=== PATIENT | female | born 1960 | race Caucasian/White ===

== ENCOUNTER 2018-05-23 23:26 | Emergency (ER) | payer BC, SELFPAY ==
[2018-05-23 23:31] VITALS: BP 159/120; PULSE 74; RESP 20; TEMP 37; O2SAT 93
[2018-05-23] MEDS: Normal Saline Flush 10 ML SYR IVP (23:36)
--- NOTE | 2018-05-23 23:36 | DI.CT_ITS ---
SYMPTOM/DIAGNOSIS: CHEST PJAIN AND SHORTNESS OF BREATH CT CHEST: CT scan of the chest was performed according to the pulmonary embolus protocol. There is no evidence of a pulmonary embolus. The thoracic aorta is normal in caliber. No dissection or aneurysm seen. Heart size is within normal limits. No pericardial effusion seen. No evidence of right ventricular dysfunction present. No thoracic adenopathy, pleural effusion or pneumothorax is identified. The lungs are clear. The bones appear intact. IMPRESSION: No acute abnormality. No evidence of a pulmonary embolus, thoracic aortic dissection or aneurysm.
--- NOTE | 2018-05-23 23:37 | W.ED.GENAD ---
Discharge Plan Disposition Patient Disposition: HOME Condition: Stable Discharge Details Chief Complaint: Chest Pain Clinical Impression: Chest pain Reason For Visit: ? heart attack ED Provider: Inocente Mckeon Home Meds and New Rx's Prescriptions: Continue atorvastatin [Lipitor] 20 mg Tablet 20 mg PO HS RF: 0 alprazolam 1 mg Tablet RF: 0 aspirin 81 mg Tablet,Chewable 81 mg PO DAILY RF: 0 montelukast [Singulair] 10 mg Tablet 10 mg RF: 0 duloxetine [Cymbalta] 60 mg Capsule,Delayed Release(Dr/Ec) 60 mg PO HS RF: 0 Discharge Instructions Instructions: Chest Pain (ED) Additional Instructions: I have placed you on a follow up list to get set up with a primary care provider if you have worsening pain, become sweaty, vomit, or feel more ill or sick in anyway return to the emergency department Medical Decision Making 58 yo female with hx of smoking in the remote past, hld, who comes in with chest tightness that is not exertional, nonradiating and no diaphroesis or n/v for about an hour that started while sitting watching tv and reading. She states this happened over a year ago [place] where she had an angiogram but no stents. She has no leg edema, jvd, speaking in full sentences without distress or evidence of sob. HEART score is 3 based on age and risk factors, will send troponin. Given wells is moderate given PE could be just as likely number one diagnosis will obtain CTA. NOrmal vascular exam and no tearing back pain so doubt dissection labs unremarkable as is CTA. She feels better and declines second troponin at this time. She has no pcp in the area so I am going to put her on the f/u list to get set up with one in the area, she udnerstands to return if worsening or new concerning symptoms occurr Differential Diagnosis anxiety, acs, chest wall pain, pe, dissection Medical Records Medical records reviewed: Yes I reviewed the patient's medical records. Imaging Data Radiologic Study: Attestation: I personally reviewed and interpreted this imaging study as follows: Radiologist's impression: no acute findings Lab Data Lab results reviewed: Yes I reviewed the patient's lab results. ECG Data Attestation: I personally reviewed and interpreted this ECG (s) as follows: Prior ECG tracings: not available for review Interpretation: sinus rhythm, rate of 75, pr 122, no acute st t wave ischemic findings HPI General Mode of arrival: ambulatory. Date/Time Provider Initiated Documentation: 05/23/18 23:34. Limitations to Documentation: no limitations. Information obtained by: patient. History of Present Illness 58 year old F presents to the emergency department with the chief complaint of chest pain, described as moderate, with intensity rated at 4. Quality is described as aching, and is localized to the chest. Patient reports no radiation. Patient started experiencing this hour(s) (1) and it has been constant. No relieving factors improve symptom(s), No exacerbating factors reported . Patient notes no other symptoms.. Patient did receive the following treatments prior to arrival, none Related Data Home Medications Medication Instructions Recorded Confirmed alprazolam 05/23/18 aspirin 81 mg PO DAILY 05/23/18 05/23/18 atorvastatin [Lipitor] 20 mg PO HS 05/23/18 05/23/18 duloxetine [Cymbalta] 60 mg PO HS 05/23/18 05/23/18 montelukast [Singulair] 10 mg 05/23/18 Allergies Allergy/AdvReac Type Severity Reaction Status Date / Time cat dander Allergy Unverified 05/23/18 23:38 General Stated Complaint: Chest Pain TRISH: 2 Review of Systems Review of Systems All systems reviewed & are unremarkable except as noted in HPI and below Constitutional Denies chills, Denies fever(s) and Denies weakness ENT Denies change in voice Gastrointestinal Denies abdominal pain, Denies nausea and Denies vomiting Genitourinary Denies dysuria Musculoskeletal Denies joint swelling Integumentary/Breasts Denies rash Neurologic Denies weakness Psychiatric Denies depression Endocrine Denies cold intolerance and Denies heat intolerance [facility] Social History Smoking/Tobacco Use Status: Former Tobacco Use Social History Smoking/Tobacco Use Status: Former Tobacco Use Exam Const General: no acute distress Orientation: alert HENMT Head: normal to inspection Ears: external ears normal General nose exam: external nose normal Mouth: moist mucous membranes Eyes General: appearance normal, both eyes and all related structures Neck Neck: normal visual inspection Resp Effort & Inspection: normal respiratory effort and able to speak in complete sentences Cardio Rate: regular rate Skin General skin exam: no rashes or lesions noted Neuro General: alert and oriented x3 Extrem General: normal to inspection Psych Mental Status: mental status grossly normal Course Vital Signs Temperature 37 C 05/23/18 23:31 Pulse 74 05/23/18 23:31 Respiratory Rate 20 05/23/18 23:31 Blood Pressure 159/120 H 05/23/18 23:31 Pulse Oximetry 93 L 05/23/18 23:31 Temperature 37 C 05/23/18 23:31 Temperature Source Temporal Artery Scan 05/23/18 23:31 Pulse 74 05/23/18 23:31 Respiratory Rate 20 05/23/18 23:31 Blood Pressure 159/120 H 05/23/18 23:31 Blood Pressure Position Supine 05/23/18 23:31 Pulse Oximetry 93 L 05/23/18 23:31 Oxygen Delivery Method Room Air 05/23/18 23:31 Oxygen Flow Rate 0 05/23/18 23:31 Pain Level 5 05/23/18 23:31
[2018-05-23] MEDS: Aspirin 81 MG CHEW 243 MG CH (23:39)
--- NOTE | 2018-05-23 23:42 | ED.GENADUL_ITS ---
Discharge Plan Disposition Patient Disposition: HOME Condition: Stable Discharge Details Chief Complaint: Chest Pain Clinical Impression: Chest pain Reason For Visit: ? heart attack ED Provider: Inocente Mckeon Home Meds and New Rx's Prescriptions: Continue atorvastatin [Lipitor] 20 mg Tablet 20 mg PO HS RF: 0 alprazolam 1 mg Tablet RF: 0 aspirin 81 mg Tablet,Chewable 81 mg PO DAILY RF: 0 montelukast [Singulair] 10 mg Tablet 10 mg RF: 0 duloxetine [Cymbalta] 60 mg Capsule,Delayed Release(Dr/Ec) 60 mg PO HS RF: 0 Discharge Instructions Instructions: Chest Pain (ED) Additional Instructions: I have placed you on a follow up list to get set up with a primary care provider if you have worsening pain, become sweaty, vomit, or feel more ill or sick in anyway return to the emergency department Medical Decision Making 58 yo female with hx of smoking in the remote past, hld, who comes in with chest tightness that is not exertional, nonradiating and no diaphroesis or n/v for about an hour that started while sitting watching tv and reading. She states this happened over a year ago [place] where she had an angiogram but no stents. She has no leg edema, jvd, speaking in full sentences without distress or evidence of sob. HEART score is 3 based on age and risk factors, will send troponin. Given wells is moderate given PE could be just as likely number one diagnosis will obtain CTA. NOrmal vascular exam and no tearing back pain so doubt dissection labs unremarkable as is CTA. She feels better and declines second troponin at this time. She has no pcp in the area so I am going to put her on the f/u list to get set up with one in the area, she udnerstands to return if worsening or new concerning symptoms occurr Differential Diagnosis anxiety, acs, chest wall pain, pe, dissection Medical Records Medical records reviewed: Yes I reviewed the patient's medical records. Imaging Data Radiologic Study: Attestation: I personally reviewed and interpreted this imaging study as follows: Radiologist's impression: no acute findings Lab Data Lab results reviewed: Yes I reviewed the patient's lab results. ECG Data Attestation: I personally reviewed and interpreted this ECG (s) as follows: Prior ECG tracings: not available for review Interpretation: sinus rhythm, rate of 75, pr 122, no acute st t wave ischemic findings HPI General Mode of arrival: ambulatory . Date/Time Provider Initiated Documentation: 05/23/18 23:34 . Limitations to Documentation: no limitations . Information obtained by: patient . History of Present Illness 58 year old F presents to the emergency department with the chief complaint of chest pain, described as moderate, with intensity rated at 4. Quality is described as aching, and is localized to the chest. Patient reports no radiation. Patient started experiencing this hour(s) (1) and it has been constant. No relieving factors improve symptom(s), No exacerbating factors reported . Patient notes no other symptoms.. Patient did receive the following treatments prior to arrival, none Related Data Home Medications Medication Instructions Recorded Confirmed alprazolam 05/23/18 aspirin 81 mg PO DAILY 05/23/18 05/23/18 atorvastatin [Lipitor] 20 mg PO HS 05/23/18 05/23/18 duloxetine [Cymbalta] 60 mg PO HS 05/23/18 05/23/18 montelukast [Singulair] 10 mg 05/23/18 Allergies Allergy/AdvReac Type Severity Reaction Status Date / Time cat dander Allergy Unverified 05/23/18 23:38 General Stated Complaint: Chest Pain TRISH: 2 Review of Systems Review of Systems All systems reviewed & are unremarkable except as noted in HPI and below Constitutional Denies chills, Denies fever(s) and Denies weakness ENT Denies change in voice Gastrointestinal Denies abdominal pain, Denies nausea and Denies vomiting Genitourinary Denies dysuria Musculoskeletal Denies joint swelling Integumentary/Breasts Denies rash Neurologic Denies weakness Psychiatric Denies depression Endocrine Denies cold intolerance and Denies heat intolerance [facility] Social History Smoking/Tobacco Use Status: Former Tobacco Use Social History Smoking/Tobacco Use Status: Former Tobacco Use Exam Const General: no acute distress Orientation: alert HENMT Head: normal to inspection Ears: external ears normal General nose exam: external nose normal Mouth: moist mucous membranes Eyes General: appearance normal, both eyes and all related structures Neck Neck: normal visual inspection Resp Effort & Inspection: normal respiratory effort and able to speak in complete sentences Cardio Rate: regular rate Skin General skin exam: no rashes or lesions noted Neuro General: alert and oriented x3 Extrem General: normal to inspection Psych Mental Status: mental status grossly normal Course Vital Signs Temperature 37 C 05/23/18 23:31 Pulse 74 05/23/18 23:31 Respiratory Rate 20 05/23/18 23:31 Blood Pressure 159/120 H 05/23/18 23:31 Pulse Oximetry 93 L 05/23/18 23:31 Temperature 37 C 05/23/18 23:31 Temperature Source Temporal Artery Scan 05/23/18 23:31 Pulse 74 05/23/18 23:31 Respiratory Rate 20 05/23/18 23:31 Blood Pressure 159/120 H 05/23/18 23:31 Blood Pressure Position Supine 05/23/18 23:31 Pulse Oximetry 93 L 05/23/18 23:31 Oxygen Delivery Method Room Air 05/23/18 23:31 Oxygen Flow Rate 0 05/23/18 23:31 Pain Level 5 05/23/18 23:31
[2018-05-23 23:43] LABS: Absolute Basophil Count 0.03 k/cumm (0.0-0.2); Absolute Eosinophil Count 0.34 k/cumm (0.0-0.7); Absolute Lymphocyte Count 2.06 k/cumm (1.2-3.4); Absolute Monocyte Count 0.47 k/cumm (0.11-0.7); Absolute Neutrophil Count 2.99 k/cumm (1.2-6.7); Basophils % 0.5; Eosinophils % 5.8; HCT 39.7 % (36.0-46.0); HGB 13.6 g/dL (12.0-15.5); Mean Corp. HGB Concentration 34.3 g/dL (32.0-36.0); Mean Corpuscular Hemoglobin 29.4 pg (27.0-33.0); Mean Corpuscular Volume 85.7 fL (80-95); Mean Platelet Volume 9.9 fL (8.0-11.0); Neutrophils % 50.7; Platelet Count 254 x1000/uL (130-400); RBC 4.63 m/cumm (4.00-5.20); RBC Distribution Width 13.3 % (11.7-14.6); White Blood Cell Count 5.89 k/cumm (4.4-10.8)
[2018-05-23] MEDS: Omnipaque 350 MG/ML 100 ML BTL IJ (23:56)
[2018-05-23 23:58] LABS: ALT 36 U/L (12-78); AST 28 U/L (15-37); Albumin 3.9 g/dL (3.4-5.0); Alkaline Phosphatase 180 U/L (46-116); Anion Gap 13.2 mmol/L (3-11); BUN 19 mg/dL (7-18); Bilirubin, Total 0.3 mg/dL (0.2-1.0); CO2 24.8 mmol/L (21.0-32.0); CREATININE 0.73 mg/dL (0.55-1.02); Calcium 8.9 mg/dL (8.5-10.1); Chloride 100 mmol/L (98-107); Glucose 77 mg/dL (70-100); Magnesium 1.9 mg/dL (1.8-2.4); Potassium 3.8 mmol/L (3.5-5.1); Sodium 138 mmol/L (136-145); Total Protein 7.5 g/dL (6.4-8.2)
[2018-05-24] LABS: Troponin I < 0.02 ng/mL (0.00-0.06)
[2018-05-24 00:12] LABS: PTT Activated 26.3 sec (21.0-31.4); Prothrombin Time 9.4 sec (9.3-10.8)
--- NOTE | 2018-05-24 00:18 | DI.VRAD_ITS ---
EXAM: CT Angiography Chest With Contrast EXAM DATE/TIME: 05/23/2018 11:37 PM CLINICAL HISTORY: 58 years old, female; Pain; Other: Chest pain and shortness of breath TECHNIQUE: Axial computed tomographic angiography images of the chest with intravenous contrast using CT angiography protocol. All CT scans at this facility use at least one of these dose optimization techniques: automated exposure control; mA and/or kV adjustment per patient size (includes targeted exams where dose is matched to clinical indication); or iterative reconstruction. Coronal and sagittal reformatted images were created and reviewed. MIP reconstructed images were created and reviewed. CONTRAST: 100 ml of omni 350 administered intravenously. COMPARISON: No relevant prior studies available. FINDINGS: Pulmonary arteries: Unremarkable. No obvious pulmonary emboli. Aorta: Unremarkable. No aortic aneurysm. No aortic dissection. Lungs: Unremarkable. No consolidation. No masses. Pleural space: Unremarkable. No pneumothorax. No pleural effusion. Heart: Unremarkable. No pericardial effusion. No obvious heart strain. Lymph nodes: Unremarkable. No enlarged lymph nodes. Bones/joints: Unremarkable. No acute fracture. Soft tissues: Unremarkable. IMPRESSION: No acute findings. Dictated and Authenticated by: Chad Jones MD. Ordering:ELSY MACIEL MD
== END 2018-05-24 00:34 | disposition home or self-care (01) ==
PROVIDERS: Emergency Provider Emergency Medicine
DX: R07.9 Chest pain, unspecified (principal)
CPT/HCPCS: 36415; 71275; 80053; 99285; 83735; 84484; 85025; 85610; 85730; 99284; J3490

== ENCOUNTER 2018-10-03 13:41 | Outpatient (REF) | payer BC, SELFPAY ==
[2018-10-04 10:26] LABS: ALT 26 U/L (12-78); AST 22 U/L (15-37); Albumin 4.3 g/dL (3.4-5.0); Alkaline Phosphatase 112 U/L (46-116); Anion Gap 11.4 mmol/L (3-11); BUN 12 mg/dL (7-18); Bilirubin, Total 0.4 mg/dL (0.2-1.0); CO2 24.6 mmol/L (21.0-32.0); CREATININE 0.75 mg/dL (0.55-1.02); Calcium 9.5 mg/dL (8.5-10.1); Chloride 99 mmol/L (98-107); Cholesterol 309 mg/dL (50-200); Glucose 98 mg/dL (70-100); HDL Cholesterol 92 mg/dL (40-60); LDL CHOLESTEROL 192 mg/dL (<100); Potassium 4.4 mmol/L (3.5-5.1); Sodium 135 mmol/L (136-145); Total Protein 7.4 g/dL (6.4-8.2); Triglyceride 59 mg/dL (30-150)
== END 2018-10-03 14:01 ==
LOC: NCHCN 13:41
PROVIDERS: Visit Provider Nurse Practitioner
DX: Z00.00 Encounter for general adult medical examination without abnormal findings (principal); E78.5 Hyperlipidemia, unspecified
CPT/HCPCS: 80053; 80061; 83721

== ENCOUNTER 2018-10-31 13:04 | Outpatient (REF) | payer BC, SELFPAY | END 2018-10-31 13:24 | LOC: NCHCN 13:04 | PROVIDERS: PCP Nurse Practitioner; Visit Provider Nurse Practitioner | DX: F41.8 Other specified anxiety disorders (principal) | CPT/HCPCS: 84443 ==

== ENCOUNTER 2018-12-01 16:45 | Emergency (ER) | payer BC, SELFPAY ==
[2018-12-01 16:52] VITALS: BP 168/106; PULSE 66; RESP 16; TEMP 36.7; O2SAT 96
--- NOTE | 2018-12-01 16:55 | DI.CT_ITS ---
SYMPTOM/DIAGNOSIS: LEFT LOWER ABDOMINAL PAIN CT ABDOMEN AND PELVIS: There are no prior comparison exams. Images were performed from the lung bases through the ischial tuberosities after IV and without oral contrast. There are numerous diverticula seen throughout the colon, greatest in the lower descending and sigmoid. There is wall thickening of the sigmoid and surrounding inflammation consistent with diverticulitis. The sigmoid lies directly adjacent to the bladder and there is wall thickening of the bladder but no evidence of a fistula. A large inflamed diverticulum is located directly adjacent to the posterior left lateral aspect of the bladder. There is no evidence of perforation. There is no abnormal small bowel dilatation. No free air or free fluid is seen. The lung bases are clear. The heart size is normal. The liver, gallbladder, spleen, pancreas, adrenals and kidneys are unremarkable. The aorta and proximal iliac arteries are calcified and normal in diameter. The patient is status post hysterectomy. IMPRESSION: Prominent diverticulosis of the sigmoid. Inflamed diverticulum directly adjacent to the left lateral aspect of the bladder, and bladder wall thickening. There is no air within the bladder to suggest fistula.
--- NOTE | 2018-12-01 16:59 | ED.GENADUL_ITS ---
Discharge Plan Disposition Patient Disposition: HOME Condition: Stable Discharge Details Chief Complaint: Abd Prob Clinical Impression: Diverticulitis Primary Care Provider: Chely Zhang ED Provider: Inocente cMkeon Home Meds and New Rx's Prescriptions: New amoxicillin-pot clavulanate [Augmentin] 875-125 mg tablet 1 tab PO Q12H Qty: 14 RF: 0 ondansetron 4 mg tablet,disintegrating 4 mg PO QID PRN (Reason: nausea) Qty: 30 RF: 0 oxycodone 5 mg tablet 5 mg PO Q4H PRN (Reason: pain) Qty: 10 RF: 0 Continued atorvastatin [Lipitor] 20 mg Tablet 20 mg PO HS RF: 0 alprazolam 1 mg Tablet RF: 0 aspirin 81 mg Tablet,Chewable 81 mg PO DAILY RF: 0 montelukast [Singulair] 10 mg Tablet 10 mg RF: 0 duloxetine [Cymbalta] 60 mg Capsule,Delayed Release(Dr/Ec) 60 mg PO HS RF: 0 Discharge Instructions Instructions: Diverticulitis (ED) Additional Instructions: your cat scan showed diverticulitis follow up with your primary care provider within 1-2 weeks if you have severe worsening pain or persistent vomit return to the emergency department for reevaluation Medical Decision Making 58 yo female with hx of hld, remote smoking history, dneies drug or alcohol use, prior appendectomy, hysterectomy and 3 c sections who comes in with 5 days of left lower abdominal pain. Apparently had a colonoscopy in the past that showed diverticula per the patient. Denies fevers, vomit though has had nausea. Has been having bowel movements though she states they are thin. She has llq pain with mild guarding otherwise no concerning abodminal exam findings. Will obtain lab work and ct imaging to eval for diverticulitis. Pain not out of proportion to exam so doubt mesneteric ischemia labs unremarkable, ct shows mild diverticulitis. Based on her lab work, ct findings and vitals feel she is appropriate for outpatient management, will d/c home and advised f/u with pcp and return precautions give Differential Diagnosis diverticulitis, sbo, kidney stone Medical Records Medical records reviewed: Yes I reviewed the patient's medical records. Imaging Data Radiologic Study: Attestation: I personally reviewed and interpreted this imaging study as follows: Imaging: CT Scan Radiologist's impression: mild diverticulitis Lab Data Lab results reviewed: Yes I reviewed the patient's lab results. HPI General Mode of arrival: ambulatory . Date/Time Provider Initiated Documentation: 12/01/18 16:46 . Limitations to Documentation: no limitations . Information obtained by: patient . History of Present Illness 58 year old F presents to the emergency department with the chief complaint of left lower abdominal pain, described as moderate, Quality is described as stabbing and aching, and is localized to the abdomen. Patient reports no radiation. Patient started experiencing this day(s) (5) and it has been constant. No relieving factors improve symptom(s), No exacerbating factors reported . Patient notes other (nausea). Patient did receive the following treatments prior to arrival, none Related Data Home Medications Medication Instructions Recorded Confirmed alprazolam 05/23/18 aspirin 81 mg PO DAILY 05/23/18 05/23/18 atorvastatin [Lipitor] 20 mg PO HS 05/23/18 05/23/18 duloxetine [Cymbalta] 60 mg PO HS 05/23/18 05/23/18 montelukast [Singulair] 10 mg 05/23/18 amoxicillin-pot clavulanate 1 tab PO Q12H #14 tab 12/01/18 [Augmentin] ondansetron 4 mg PO QID PRN #30 tab 12/01/18 oxycodone 5 mg PO Q4H PRN #10 tab 12/01/18 Previous Rx's Medication Instructions Recorded amoxicillin-pot clavulanate 1 tab PO Q12H #14 tab 12/01/18 [Augmentin] ondansetron 4 mg PO QID PRN #30 tab 12/01/18 oxycodone 5 mg PO Q4H PRN #10 tab 12/01/18 Allergies Allergy/AdvReac Type Severity Reaction Status Date / Time cat dander Allergy Unverified 05/23/18 23:38 General Stated Complaint: Abd Prob TRISH: 3 Review of Systems Review of Systems All systems reviewed & are unremarkable except as noted in HPI and below Constitutional Denies chills, Denies fever(s) and Denies weakness Cardiovascular Denies chest pain and Denies dyspnea Respiratory Denies cough and Denies dyspnea Gastrointestinal Denies vomiting Musculoskeletal Denies joint swelling Neurologic Denies weakness PFSH Social History Smoking/Tobacco Use Status: Former Tobacco Use Alcohol Intake: never Drug use: Never Substance use type: does not use Do you feel safe in your relationship?: Yes Exam Const General: no acute distress Orientation: alert HENMT Head: normal to inspection Ears: external ears normal General nose exam: external nose normal Mouth: moist mucous membranes Eyes General: appearance normal, both eyes and all related structures Neck Neck: normal visual inspection Resp Effort & Inspection: normal respiratory effort and able to speak in complete sentences Cardio Rate: regular rate GI Palpation: soft Skin General skin exam: no rashes or lesions noted Neuro General: alert and oriented x3 Extrem General: normal to inspection Psych Mental Status: mental status grossly normal Course Vital Signs Temperature 36.7 C 12/01/18 16:52 Pulse 66 12/01/18 16:52 Respiratory Rate 16 12/01/18 16:52 Blood Pressure 168/106 H 12/01/18 16:52 Pulse Oximetry 96 12/01/18 16:52 Temperature 36.7 C 12/01/18 16:52 Temperature Source Temporal Artery Scan 12/01/18 16:52 Pulse 66 12/01/18 16:52 Respiratory Rate 16 12/01/18 16:52 Respiratory Effort Non-Labored 12/01/18 16:52 Blood Pressure 168/106 H 12/01/18 16:52 Blood Pressure Position Supine 12/01/18 16:52 Pulse Oximetry 96 12/01/18 16:52 Oxygen Delivery Method Room Air 12/01/18 16:52 Oxygen Flow Rate 0 12/01/18 16:52
[2018-12-01] MEDS: Ondansetron 4 MG/2 ML VIAL IVP (17:09)
[2018-12-01] MEDS: Ketorolac 15 MG/ML VIAL IVP (17:10)
[2018-12-01] MEDS: Normal Saline 1,000 ML 1000 ML IV (17:10)
[2018-12-01 17:15] LABS: Abs Immature Grans 0.01 k/cumm (0.0-0.09); Absolute Basophil Count 0.03 k/cumm (0.0-0.2); Absolute Eosinophil Count 0.32 k/cumm (0.0-0.7); Absolute Lymphocyte Count 1.52 k/cumm (1.2-3.4); Absolute Monocyte Count 0.79 k/cumm (0.11-0.7); Absolute Neutrophil Count 4.93 k/cumm (1.2-6.7); Basophils % 0.4; Eosinophils % 4.2; HGB 13.7 g/dL (12.0-15.5); Immature Grans % 0.1; Mean Corp. HGB Concentration 33.4 g/dL (32.0-36.0); Mean Corpuscular Hemoglobin 28.5 pg (27.0-33.0); Mean Corpuscular Volume 85.2 fL (80-95); Mean Platelet Volume 10.2 fL (8.0-11.0); Monocytes % 10.4; Neutrophils % 64.9; Platelet Count 287 x1000/uL (130-400); RBC 4.81 m/cumm (4.00-5.20); RBC Distribution Width 13.9 % (11.7-14.6)
[2018-12-01 17:27] LABS: INR 0.9 (0.9-1.1); PTT Activated 24.6 sec (21.0-31.4); Prothrombin Time 9.3 sec (9.3-11.0)
[2018-12-01] MEDS: Omnipaque 350 MG/ML 100 ML BTL IJ (17:28)
[2018-12-01 17:29] LABS: ALT 42 U/L (12-78); AST 24 U/L (15-37); Alkaline Phosphatase 169 U/L (46-116); BUN 20 mg/dL (7-18); Bilirubin, Direct 0.08 mg/dL (0.00-0.20); Bilirubin, Total 0.4 mg/dL (0.2-1.0); Calcium 8.9 mg/dL (8.5-10.1); Chloride 102 mmol/L (98-107); Glucose 110 mg/dL (70-100); Lipase 189 U/L (73-393); Magnesium 2.2 mg/dL (1.8-2.4); Potassium 4.1 mmol/L (3.5-5.1); Sodium 138 mmol/L (136-145); Total Protein 7.7 g/dL (6.4-8.2)
--- NOTE | 2018-12-01 18:06 | DI.VRAD_ITS ---
EXAM: CT Abdomen and Pelvis With Contrast EXAM DATE/TIME: 12/01/2018 4:56 PM CLINICAL HISTORY: 58 years old, female; Abdominal pain; Patient HX: Llq pain 2 days, worsening TECHNIQUE: Imaging protocol: Axial computed tomography images of the abdomen and pelvis with intravenous contrast. Coronal and sagittal reformatted images were created and reviewed. COMPARISON: No relevant prior studies available. FINDINGS: Diffuse diverticulosis with some thickening of the mid sigmoid colon which may represent some very mild diverticulitis. Normal appearing solid organs. No intestinal obstruction. No obstructive uropathy. No free fluid. No free air. No other inflammatory changes. IMPRESSION: Findings suggesting a very mild diverticulitis of the mid sigmoid colon. Dictated and Authenticated by: Behzad Urias MD. Ordering:ELSY Brower MD
[2018-12-01] MEDS: oxyCODONE 5 MG TAB 15 MG PO (18:33)
[2018-12-01] MEDS: Amoxicillin 875/Clav. 125 TAB PO (18:33)
[2018-12-01] MEDS: Ondansetron O.D.T. 4 MG TABEF PO (18:33)
== END 2018-12-01 18:45 | disposition home or self-care (01) ==
PROVIDERS: Emergency Provider Emergency Medicine; PCP Nurse Practitioner
DX: K57.30 Diverticulosis of large intestine without perforation or abscess without bleeding (principal); Z98.890 Other specified postprocedural states
CPT/HCPCS: 36415; 80053; 80076; 83690; 96361; 96374; 96375; 99285; 74177; 83735; 85025; 85610; 85730; 99284; J1885; J2405; J3490

== ENCOUNTER 2018-12-20 02:30 | Inpatient (IN) | payer BC, SELFPAY ==
[2018-12-20 02:33] VITALS: BP 158/85; PULSE 76; RESP 16; TEMP 36.4; O2SAT 97
--- NOTE | 2018-12-20 03:01 | W.ED.GENAD ---
Discharge Plan Disposition Patient Disposition: [facility] INPATIENT Condition: Good Discharge Details Chief Complaint: Abd Prob Clinical Impression: Abdominal pain, Colonic diverticular abscess Admit Date/Time: 12/20/18 04:37 Admit Provider: Annamaria Wright Attending Provider: Annamaria Wright Primary Care Provider: Chely Zhang ED Provider: Devon Mcknight Discharge Data Discharge Date/Time-TO BE ENTERED AT DEPARTURE: 12/20/18 05:04 Medical Decision Making This is a 58-year-old female who presents with 3 weeks of abdominal pain. She was diagnosed with diverticulitis 3 weeks ago, prescribed Augmentin and is taking the complete dose. She states that since then her pain has continued, and is not worsened. Appetite is decreased but she still continues D. Stools are pencil thin but she denies any diarrhea or vomiting. She does have a past medical history of multiple abdominal surgeries including hysterectomy, fibromyalgia, anxiety, and high cholesterol. Exam shows no signs of an acute surgical abdomen. We will get a repeat CT scan to make sure there is no evidence of abscess, or colitis. We will rehydrate, treat the patient's pain, and reassess. 5:[address] results show evidence of a diverticular abscess. Laboratory is notably otherwise unremarkable. I did contact Dr. Wright discussed the case with her, she recommends IV antibiotics and admission. Patient will be admitted to the floor. Orders were placed during downtime, orders were placed on paper, patient successfully transition to the floor. Patient was started on Zosyn here in the ED. I have extensively reviewed the treatment plan with the patient. I have addressed all patient concerns at this time. I have also discussed the plan with the admitting physician and they agree with the current assessment and plan and have agreed to assume responsibility for the patient. All parties demonstrate verbal understanding and agreement with our assessment and plan at this time. FINDINGS: Liver: No suspicious lesions. Gallbladder and bile ducts: No acute or concerning findings. Pancreas: Unremarkable. No ductal dilation. Spleen: No suspicious lesions. Adrenals: Unremarkalbe. No suspicious mass. Kidneys and ureters: Unremarkable. No hydro. No suspicious lesions. Stomach and bowel: Colonic diverticulosis. Inflamed diverticulum seen on the prior study is no fluid-filled and dilated out to 2.6 cm. Appendix: No evidence of appendicitis. Intraperitoneal space: No free air. No significant fluid collection. Vasculature: Unremarkable. No acute findings Lymph nodes: Unremarkable. Bladder: Focal urinary bladder wall thickening adjacent to the inflamed sigmoid colon. Reproductive: Unremarkable as visualized. Bones/joints: No acute fracture. No dislocation. Soft tissues: Small fat-containing umbilical hernia. IMPRESSION: The inflamed sigmoid colon diverticulum seen on the prior study is now fluid filled and dilated out to 2.5 cm given that the appearance of a small abscess. It abuts the posterior wall the urinary bladder causing inflammation and thickening of the wall of the bladder at this site. Dictated and Authenticated by: Chad Jones MD. Ordering:ELIZABETH Osorio MD HPI General Date/Time Provider Initiated Documentation: 12/20/18 02:35. HPI Narrative: This is a 58-year-old female with a past medical history of high cholesterol, anxiety, fibromyalgia, hysterectomy, previous fibroids, ruptured bladder, who presents today for evaluation of generalized abdominal pain. On 12/01 she was diagnosed with diverticulitis. She was started on Augmentin, and discharged home with close follow-up with her PCP. Patient states that for the last 20 days she has not had any improvement of her symptoms, and in fact she states that her symptoms have worsened. She now describes abdominal tenderness throughout, including for her left and right abdomen for both the upper and lower regions. Pain is worse with bowel movements, urination, movement and palpation. She does admit to pencil thin stools, and denies any diarrhea, constipation, or vomiting. She denies any hematochezia melena or acholic stool. She has been able to still eat daily, however her appetite is notably decreased. She does have a follow-up appointment with her family doctor this morning. Patient denies any other complaints at this time. No other modifying factors. She denies any IV or illicit drug use or pertinent family history. Related Data Home Medications Medication Instructions Recorded Confirmed alprazolam 1 mg PO HS 05/23/18 12/20/18 aspirin 81 mg PO DAILY 05/23/18 12/20/18 atorvastatin [Lipitor] 20 mg PO HS 05/23/18 12/20/18 duloxetine [Cymbalta] 60 mg PO HS 05/23/18 05/23/18 montelukast [Singulair] 10 mg PO HS 05/23/18 12/20/18 amoxicillin-pot clavulanate 1 tab PO Q12H #14 tab 12/01/18 12/20/18 [Augmentin] ondansetron 4 mg PO QID PRN #30 tab 12/01/18 oxycodone 5 mg PO Q4H PRN #10 tab 12/01/18 albuterol sulfate 1 puff INHALATION Q6H PRN 12/20/18 12/20/18 dicyclomine 10 mg PO QID #20 cap 12/20/18 Previous Rx's Medication Instructions Recorded amoxicillin-pot clavulanate 1 tab PO Q12H #14 tab 12/01/18 [Augmentin] ondansetron 4 mg PO QID PRN #30 tab 12/01/18 oxycodone 5 mg PO Q4H PRN #10 tab 12/01/18 dicyclomine 10 mg PO QID #20 cap 12/20/18 Allergies Allergy/AdvReac Type Severity Reaction Status Date / Time cat dander Allergy Unverified 05/23/18 23:38 General Stated Complaint: Abd Prob TRISH: 3 Review of Systems Review of Systems All systems reviewed & are unremarkable except as noted in HPI and below PFSH Social History Smoking/Tobacco Use Status: Former Tobacco Use Alcohol Intake: never Drug use: Never Substance use type: does not use Do you feel safe in your relationship?: Yes Exam Narrative Exam Narrative: 1.Const: Well-nourished, Well-developed, appearing stated age 2.Eyes: PERRL, no conjunctival injection, and symmetrical lids. 3.ENT: Atraumatic external nose and ears. Moist MM. Neck: Symmetric, trachea midline, No thyromegaly. 4.CVS: +S1/S2, No murmurs or gallops. Peripheral pulses 2+ and equal in all extremities. Brisk capillary refill in all extremities. 5.RESP: Unlabored respiratory effort. Clear to auscultation bilaterally. No wheezes rales or rhonchi 6.GI: Soft,Nondistended, No hepatosplenomegaly. No guarding or rebound. Mild generalized tenderness throughout left upper left lower right upper and right lower quadrants. No significant pelvic tenderness. No flank or CVA tenderness. 7.MSK: Normocephalic/Atraumatic, Extremities w/o deformity or ttp No cyanosis or clubbing, Normal movement of all extremities 8.Skin: Warm, Dry. No rashes or lesions. 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 Sensation grossly intact, no focal neurologic deficits. 10.Psych: (AAO) x3. Appropriate mood and affect Course Vital Signs Temperature 36.4 C L 12/20/18 02:33 Pulse 76 12/20/18 02:33 Respiratory Rate 16 12/20/18 02:33 Blood Pressure 158/85 H 12/20/18 02:33 Pulse Oximetry 97 12/20/18 02:33 Temperature 36.4 C L 12/20/18 02:33 Temperature Source Tympanic 12/20/18 02:33 Pulse 76 12/20/18 02:33 Respiratory Rate 16 12/20/18 02:33 Respiratory Effort Non-Labored 12/20/18 02:37 Blood Pressure 158/85 H 12/20/18 02:33 Pulse Oximetry 97 12/20/18 02:33 Oxygen Delivery Method Room Air 12/20/18 02:33 Oxygen Flow Rate 0 12/20/18 02:33 Pain Level 10 12/20/18 02:33
[2018-12-20] MEDS: Normal Saline 1,000 ML 1000 ML IV (03:02)
[2018-12-20] MEDS: Ketorolac 30 MG/ML VIAL IVP (03:02)
[2018-12-20] MEDS: Dicyclomine 20 MG TAB PO (03:04)
[2018-12-20 03:11] LABS: Abs Immature Grans 0.02 k/cumm (0.0-0.09); Absolute Basophil Count 0.02 k/cumm (0.0-0.2); Absolute Eosinophil Count 0.42 k/cumm (0.0-0.7); Absolute Lymphocyte Count 1.86 k/cumm (1.2-3.4); Absolute Neutrophil Count 6.73 k/cumm (1.2-6.7); Basophils % 0.2; Eosinophils % 4.2; HCT 36.8 % (36.0-46.0); HGB 12.4 g/dL (12.0-15.5); Immature Grans % 0.2; Lymphocytes % 18.7; Mean Corp. HGB Concentration 33.7 g/dL (32.0-36.0); Mean Corpuscular Hemoglobin 28.5 pg (27.0-33.0); Mean Corpuscular Volume 84.6 fL (80-95); Mean Platelet Volume 9.9 fL (8.0-11.0); Neutrophils % 67.7; Platelet Count 271 x1000/uL (130-400); RBC 4.35 m/cumm (4.00-5.20); White Blood Cell Count 9.95 k/cumm (4.4-10.8)
[2018-12-20 03:27] LABS: ALT 24 U/L (12-78); AST 20 U/L (15-37); Albumin 3.5 g/dL (3.4-5.0); Alkaline Phosphatase 145 U/L (46-116); Anion Gap 12.3 mmol/L (3-11); BUN 9 mg/dL (7-18); Bilirubin, Total 0.4 mg/dL (0.2-1.0); CO2 24.7 mmol/L (21.0-32.0); CREATININE 0.68 mg/dL (0.55-1.02); Calcium 8.9 mg/dL (8.5-10.1); Chloride 97 mmol/L (98-107); Glucose 102 mg/dL (70-100); Potassium 3.8 mmol/L (3.5-5.1); Sodium 134 mmol/L (136-145); Total Protein 7.3 g/dL (6.4-8.2)
[2018-12-20] MEDS: Omnipaque 350 MG/ML 100 ML BTL IJ (03:27)
--- NOTE | 2018-12-20 03:29 | DI.CT_ITS ---
SYMPTOMS/DIAGNOSIS: RECENT DIVERTICULITIS, NOW WORSENING PAIN, GENERAL CT SCAN OF THE ABDOMEN AND PELVIS: CT scan of the abdomen and pelvis was performed following the uneventful administration of intravenous contrast material. There is mild patient motion artifact present. Comparison is 12/01/18. Dependent atelectatic changes are seen in the lung bases. The liver is normal in size. No suspicious hepatic masses seen. The portal, superior mesenteric and splenic veins are patent. The gallbladder is negative. There is no biliary ductal dilatation. The pancreas and peripancreatic soft tissues are unremarkable, as are the spleen and adrenal glands. The kidneys show normal and symmetric enhancement. No evidence of a solid renal mass or obstruction. There is thickening of the wall of the mid sigmoid colon with mild pericolonic inflammatory change. There are diverticula seen in the colon, particularly the sigmoid colon. The findings are consistent with acute diverticulitis. The extent of disease of the sigmoid colon is unchanged compared to 12/01/18. There is now an air-fluid collection interposed between the inferomedial sigmoid colon and the adjacent urinary bladder. It measures 2.5 cm in diameter. This may represent an enlarged, inflamed diverticulum versus an abscess. There is thickening of left lateral aspect of the urinary bladder wall adjacent to the inflamed sigmoid colon. Reproductive organs are unremarkable. The remainder of the bowel is unremarkable. No findings to suggest an acute appendicitis are present. There is atherosclerosis of the abdominal aorta but no aneurysmal dilatation. No significant abdominal or pelvic adenopathy, ascites or pneumoperitoneum is seen. No acute osseous abnormalities identified. IMPRESSION: 1. Findings consistent with acute diverticulitis in the sigmoid colon. There is an enlarged air-fluid collection at the inferior medial aspect of the inflamed sigmoid colon abutting the urinary bladder. This may represent an inflamed, enlarged diverticulum versus a small abscess. 2. Thickening of the wall of the urinary bladder on the left likely secondary to the adjacent sigmoid diverticulitis.
[2018-12-20 03:32] LABS: Bilirubin Negative (Negative); Blood Trace-intact (Negative); Clarity Clear (Clear); Glucose Negative (Negative); Ketones Negative (Negative); Leukocyte Esterase Negative (Negative); Nitrite Negative (Negative); Specific Gravity <= 1.005 (1.005-1.025); Urobilinogen 0.2 EU/dL (Up TO 0.2)
[2018-12-20 03:36] LABS: Bacteria Negative HPF (Negative); C & S Indicated? No/Sq. Contamination; Casts Negative LPF (Negative); Crystals Negative HPF (Negative); Epithelial Cells Many HPF (Negative); Mucus Negative (Negative); RBC 0-2 (0-2); WBC 0-2 HPF (0-5)
[2018-12-20 03:37] LABS: Lipase 137 U/L (73-393)
[2018-12-20 04:09] VITALS: BP 150/60; PULSE 72; RESP 16; O2SAT 100
[2018-12-20] MEDS: Piperacillin/Tazobactam 3.375 GM VIAL (04:52)
[2018-12-20] MEDS: Normal Saline 1,000 ML 100 ML IV (05:30)
--- NOTE | 2018-12-20 06:13 | DI.VRAD_ITS ---
EXAM: CT Abdomen and Pelvis With Contrast EXAM DATE/TIME: 12/20/2018 2:46 AM CLINICAL HISTORY: 58 years old, female; Abdominal pain; Generalized; Patient HX: Recent diverticulitis, now worsening pain TECHNIQUE: Imaging protocol: Axial computed tomography images of the abdomen and pelvis with intravenous contrast. Coronal and sagittal reformatted images were created and reviewed. Radiation optimization: All CT scans at this facility use at least one of these dose optimization techniques: automated exposure control; mA and/or kV adjustment per patient size (includes targeted exams where dose is matched to clinical indication); or iterative reconstruction. Contrast material: [id number]; Contrast volume: 70 ml; Contrast route: IV 18G RAC; COMPARISON: CT ABDOMEN PELVIS W 12/01/2018 5:23 PM FINDINGS: Liver: No suspicious lesions. Gallbladder and bile ducts: No acute or concerning findings. Pancreas: Unremarkable. No ductal dilation. Spleen: No suspicious lesions. Adrenals: Unremarkalbe. No suspicious mass. Kidneys and ureters: Unremarkable. No hydro. No suspicious lesions. Stomach and bowel: Colonic diverticulosis. Inflamed diverticulum seen on the prior study is no fluid-filled and dilated out to 2.6 cm. Appendix: No evidence of appendicitis. Intraperitoneal space: No free air. No significant fluid collection. Vasculature: Unremarkable. No acute findings Lymph nodes: Unremarkable. Bladder: Focal urinary bladder wall thickening adjacent to the inflamed sigmoid colon. Reproductive: Unremarkable as visualized. Bones/joints: No acute fracture. No dislocation. Soft tissues: Small fat-containing umbilical hernia. IMPRESSION: The inflamed sigmoid colon diverticulum seen on the prior study is now fluid filled and dilated out to 2.5 cm given that the appearance of a small abscess. It abuts the posterior wall the urinary bladder causing inflammation and thickening of the wall of the bladder at this site. Dictated and Authenticated by: Chad Jones MD. Ordering:ELIZABETH Osorio MD
[2018-12-20 06:50] VITALS: BP 173/94; PULSE 76; RESP 18; TEMP 36.7; O2SAT 98
[2018-12-20 07:50] VITALS: BP 135/81; PULSE 65; RESP 16; TEMP 36.7; O2SAT 95
[2018-12-20 08:08] VITALS: BP 135/81; PULSE 65; RESP 16; TEMP 36.7; O2SAT 95
--- NOTE | 2018-12-20 08:17 | PHARADMIT ---
Admission Pharmacy Clinical Review. DIVERTICULITIS ABSCESS Code Status Full Code Current Weight Wgt-50.05 kg Renally Cleared and Narrow Therapeutic Index Meds CrCl~56.4 mL/min Meds-OK QTc Value / Action Taken QTc-462 na BP Control, Fever BP- 135/81 Tmax- 36.7C Electrolytes reviewed Na-134 K3.8 DVT Prophylaxis none Opiate Usage / Scheduled Bowel Regimen Ordered No No Plt/SCr for Heparin / Enoxaparin Plts- 271 SCr- 0.68 INR for Warfarin na H/H stable, WBC/Bands H&H- 12.4/36.8 WBC- 9.95 Antibiotic appropriateness Zosyn, Cultures and Sensitivities none Surgical ABX d/c within 24 hr na DM control / Insulin Dosing BG- 102 Heart Failure (Check EF%) (MIKA's, B-Block, Diuretics) none IV to PO Switch No Home Meds Reviewed Yesd Home Meds Not Ordered Ventolin, Xanax, Lipitor,Bentyl, Cymbalta, ASA, Singulair, Zofran, Oxycodone Comments
[2018-12-20] MEDS: Acetaminophen 325 MG TAB 650 MG PO (10:11)
[2018-12-20] MEDS: Lactated Ringers 1,000 ML 75 ML IV (11:00)
--- NOTE | 2018-12-20 11:22 | W.PM.HP.N ---
Date of service: 12/20/18 Time of Service: 07:00 Assessment and Plan (1) Diverticulitis large intestine: Current visit: Yes Status: Acute The patient has not improved with outpatient antibiotics. She will be admitted for IV antibiotics. The abscess is small and will hopefully resolve without intervention. Due to her frequent episodes, we can consider elective sigmoid resection in the future. Symptoms of a bladder fistula were discussed. Qualifiers: Diverticulitis complication: with perforation and abscess History of Present Illness Narrative: This patient presented to the emergency department with complaints of left lower quadrant pain. She has been treated for diverticulitis in the past and has been on Augmentin p.o. for about a week. This is not resulted in improvement. She also notes decreased stool frequency and size although is still passing flatus. No blood within her stool. She is having no hematuria or dysuria, no pneumaturia. No fevers at home. Last colonoscopy 5 years ago in [place] showed diverticulosis but no polyps. Her mother had a colon resection for diverticular disease. There is no family history of inflammatory bowel disease or colon cancer. The patient had a CT scan which I have reviewed. This showed a contained 2.5 cm diverticular abscess adjacent to the bladder. Review of Systems Review of Systems All systems reviewed & are unremarkable except as noted in HPI and below Constitutional Denies fatigue and Denies headache(s) Eyes Denies change in vision ENT Denies headache(s) and Denies neck mass Cardiovascular Denies chest pain, Denies edema, Denies palpitations and Denies dyspnea Respiratory Denies cough, Denies dyspnea and Denies wheezing Gastrointestinal Denies hematochezia Genitourinary Denies abnormal vaginal bleeding and Denies dysuria Musculoskeletal Denies joint swelling Integumentary/Breasts Denies new lesions and Denies rash Neurologic Denies confusion, Denies headache(s) and Denies focal weakness Psychiatric Reports system reviewed and no additional complaints, except as docu and Denies confusion Endocrine Denies fatigue and Denies palpitations Hematologic/Lymphatic Denies easy bleeding and Denies lymphadenopathy Allergic/Immunologic Denies wheezing [facility] Medical History Anxiety (Chronic) Asthma (Inactive) Fibromyalgia (Acute) Hypercholesteremia (Acute) Surgical History H/O hysterectomy for benign disease (Acute) Social History Smoking/Tobacco Use Status: Former Tobacco Use Alcohol Intake: never Drug use: Never Substance use type: does not use Do you feel safe in your relationship?: Yes Meds Home Medications Medication Instructions Recorded Confirmed Type alprazolam 1 mg PO HS 05/23/18 12/20/18 History aspirin 81 mg PO DAILY 05/23/18 12/20/18 History atorvastatin [Lipitor] 20 mg PO HS 05/23/18 12/20/18 History duloxetine [Cymbalta] 60 mg PO HS 05/23/18 05/23/18 History montelukast [Singulair] 10 mg PO HS 05/23/18 12/20/18 History amoxicillin-pot clavulanate 1 tab PO Q12H #14 tab 12/01/18 12/20/18 Rx [Augmentin] ondansetron 4 mg PO QID PRN #30 tab 12/01/18 Rx oxycodone 5 mg PO Q4H PRN #10 tab 12/01/18 Rx albuterol sulfate 1 puff INHALATION Q6H PRN 12/20/18 12/20/18 History dicyclomine 10 mg PO QID #20 cap 12/20/18 Rx Allergies Allergy/AdvReac Type Severity Reaction Status Date / Time ciprofloxacin [From Cipro] Allergy Unknown Unverified 12/20/18 08:07 clindamycin Allergy Unknown Unverified 12/20/18 08:07 cat dander Allergy Unverified 05/23/18 23:38 Exam Const General: healthy appearing and not in acute distress Nutritional Appearance: well nourished Orientation: oriented x3 HENMT Head: normal to inspection Eyes Sclera: sclerae normal Pupils: PERRL Neck Neck: no lymphadenopathy Thyroid: thyroid normal Carotids: no bruits Lymphatic: no lymphadenopathy noted Chest Breast inspection: normal inspection of the axillae Resp Effort & Inspection: normal respiratory effort Auscultation: clear to auscultation bilaterally and no wheezes Cardio Rate: regular rate Rhythm: regular rhythm Pulses: dorsalis pedis pulses present GI Inspection: non-distended Palpation: soft, no hepatosplenomegaly, no hernias and tender in the LLQ Skin General skin exam: no rashes or lesions noted Neuro General: alert Cognition: normal cognition Extrem General: normal to inspection Psych Affect: normal affect Attitude: cooperative Results Labs : 12/20/18 02:52 12/20/18 02:52 Laboratory Results - last 24 hr 12/20/18 12/20/18 12/20/18 02:52 02:52 02:55 WBC 9.95 RBC 4.35 Hgb 12.4 Hct 36.8 MCV 84.6 MCH 28.5 MCHC 33.7 RDW 13.0 Plt Count 271 MPV 9.9 Immature Gran % 0.2 Neutrophils % 67.7 Lymphocytes % 18.7 Monocytes % 9.0 Eosinophils % 4.2 Basophils % 0.2 Absolute Neutrophils 6.73 H Absolute Lymphocytes 1.86 Absolute Monocytes 0.90 H Absolute Eosinophils 0.42 Absolute Basophils 0.02 Sodium 134 L Potassium 3.8 Chloride 97 L Carbon Dioxide 24.7 Anion Gap 12.3 H BUN 9 Creatinine 0.68 Estimated GFR/1.73 m2 >= 60.00 Glucose 102 H Calcium 8.9 Total Bilirubin 0.4 AST 20 ALT 24 Alkaline Phosphatase 145 H Total Protein 7.3 Albumin 3.5 Lipase 137 Urine Color Yellow Urine Clarity Clear Urine pH 7.0 Ur Specific [place] <= 1.005 Urine Protein Negative Urine Ketones Negative Urine Blood Trace-intact H Urine Nitrite Negative Urine Bilirubin Negative Urine Urobilinogen 0.2 Ur Leukocyte Esterase Negative Urine RBC 0-2 Urine WBC 0-2 Ur Epithelial Cells Many Urine Crystals Negative Urine Bacteria Negative Urine Casts Negative Urine Mucus Negative Ur Culture Indicated? No/sq. contamination Urine Glucose Negative Last Vital Signs Temp 98.1 F 12/20/18 08:08 Pulse 65 12/20/18 08:08 Resp 16 12/20/18 08:08 BP 135/81 12/20/18 08:08 Pulse Ox 95 12/20/18 08:08
[2018-12-20] MEDS: PIPERACILLIN/TAZO 3.375 GM in Normal Saline 50 ML IVPB ×2 (12:11→19:44)
[2018-12-20 15:49] VITALS: BP 149/87; PULSE 67; RESP 16; TEMP 38.2; O2SAT 96
[2018-12-20] MEDS: Normal Saline Flush 10 ML SYR IVP (17:49)
[2018-12-20] MEDS: Montelukast 10 MG TAB PO (22:18)
[2018-12-20] MEDS: Atorvastatin 20 MG TAB PO (22:18)
[2018-12-20] MEDS: ALPRAZolam 0.5 MG TAB 1 MG PO (22:41)
[2018-12-21 00:30] VITALS: BP 128/78; PULSE 93; RESP 17; TEMP 36.8; O2SAT 96
[2018-12-21] MEDS: PIPERACILLIN/TAZO 3.375 GM in Normal Saline 50 ML IVPB ×3 (03:39→19:46)
[2018-12-21] MEDS: Normal Saline Flush 10 ML SYR IVP ×3 (07:00→22:55)
[2018-12-21 07:55] VITALS: BP 138/81; PULSE 86; RESP 18; TEMP 37.1; O2SAT 100
[2018-12-21] MEDS: Docusate Sodium 100 MG CAP PO (08:12)
[2018-12-21] MEDS: Aspirin 81 MG CHEW PO (08:12)
[2018-12-21] MEDS: Acetaminophen 325 MG TAB 650 MG PO (08:25)
[2018-12-21 08:27] LABS: Abs Immature Grans 0.01 k/cumm (0.0-0.09); Absolute Basophil Count 0.02 k/cumm (0.0-0.2); Absolute Eosinophil Count 0.21 k/cumm (0.0-0.7); Absolute Monocyte Count 0.61 k/cumm (0.11-0.7); Absolute Neutrophil Count 6.67 k/cumm (1.2-6.7); Basophils % 0.2; Eosinophils % 2.4; HCT 37.9 % (36.0-46.0); HGB 12.2 g/dL (12.0-15.5); Immature Grans % 0.1; Lymphocytes % 14.7; Mean Corp. HGB Concentration 32.2 g/dL (32.0-36.0); Mean Corpuscular Hemoglobin 27.7 pg (27.0-33.0); Mean Corpuscular Volume 86.1 fL (80-95); Mean Platelet Volume 10.3 fL (8.0-11.0); Monocytes % 6.9; Neutrophils % 75.7; Platelet Count 255 x1000/uL (130-400); RBC Distribution Width 13.2 % (11.7-14.6); White Blood Cell Count 8.82 k/cumm (4.4-10.8)
--- NOTE | 2018-12-21 14:30 | W.PM.PROGNOT ---
Date of Service Date of service: 12/21/18 Time of Service: 14:30 Assessment and Plan (1) Diverticulitis large intestine: Current visit: Yes Status: Acute She is making slow progress Will advance diet as tolerated Check UA Milk of mag Continue IV antibiotics Qualifiers: Diverticulitis complication: with perforation and abscess Subjective Interval history since last seen: Pain is decreased but now more central May have seen some blood in her urine Passing flatus but no bowel movement Still having mild nausea, only wanting clear liquids at the moment Exam Narrative Exam Narrative: No acute distress Abdomen soft, non distended, tender in suprapubic region but stable/improved from prior Objective Objective Clinical Data: Vital Signs Temperature 98.8 F 12/21/18 07:55 Temperature Source Tympanic 12/21/18 07:55 Pulse 86 12/21/18 07:55 Pulse Rhythm Regular 12/21/18 07:45 Respiratory Rate 18 12/21/18 07:55 Respiratory Effort 12/21/18 07:45 Respiratory Depth Normal 12/21/18 07:45 Respiratory Pattern Normal 12/21/18 07:45 Blood Pressure 138/81 12/21/18 07:55 Pulse Oximetry 100 12/21/18 07:55 Oxygen Delivery Method Room Air 12/21/18 07:55 Oxygen Flow Rate 0 12/21/18 07:55 Pain Level 6 12/21/18 08:25 Comment 12/21/18 07:55 Intake & Output 12/20/18 12/21/18 12/21/18 23:59 11:59 23:59 Intake Total 778.75 / 1828.75 686.25 / 1166.25 480 / 1166.25 Output Total 300 / 300 Balance 778.75 / 378.75 386.25 / 866.25 480 / 866.25 Intake: IV 138.75 / 1188.75 686.25 / 686.25 Oral 640 / 640 480 / 480 Output: Urine 300 / 300 Other: Urine Color Yellow Urine Appearance Cloudy Comment some missed collection hat. No blood noted. Voiding Methods Toilet Laboratory Results WBC 8.82 k/cumm (4.4-10.8) 12/21/18 06:40 RBC 4.40 m/cumm (4.00-5.20) 12/21/18 06:40 Hgb 12.2 g/dL (12.0-15.5) 12/21/18 06:40 Hct 37.9 % (36.0-46.0) 12/21/18 06:40 MCV 86.1 fL (80-95) 12/21/18 06:40 MCH 27.7 pg (27.0-33.0) 12/21/18 06:40 MCHC 32.2 g/dL (32.0-36.0) 12/21/18 06:40 RDW 13.2 % (11.7-14.6) 12/21/18 06:40 Plt Count 255 x1000/uL (130-400) 12/21/18 06:40 MPV 10.3 fL (8.0-11.0) 12/21/18 06:40 Immature Gran % 0.1 12/21/18 06:40 75.7 12/21/18 06:40 14.7 12/21/18 06:40 6.9 12/21/18 06:40 2.4 12/21/18 06:40 0.2 12/21/18 06:40 Absolute Neutrophils 6.67 k/cumm (1.2-6.7) 12/21/18 06:40 Absolute Lymphocytes 1.30 k/cumm (1.2-3.4) 12/21/18 06:40 Absolute Monocytes 0.61 k/cumm (0.11-0.7) 12/21/18 06:40 Absolute Eosinophils 0.21 k/cumm (0.0-0.7) 12/21/18 06:40 Absolute Basophils 0.02 k/cumm (0.0-0.2) 12/21/18 06:40 Sodium 134 mmol/L (136-145) L 12/20/18 02:52 Potassium 3.8 mmol/L (3.5-5.1) 12/20/18 02:52 Chloride 97 mmol/L (98-107) L 12/20/18 02:52 Carbon Dioxide 24.7 mmol/L (21.0-32.0) 12/20/18 02:52 12.3 mmol/L (3-11) H 12/20/18 02:52 BUN 9 mg/dL (7-18) 12/20/18 02:52 0.68 mg/dL (0.55-1.02) 12/20/18 02:52 >= 60.00 (mL/min/1.73m2) 12/20/18 02:52 Glucose 102 mg/dL (70-100) H 12/20/18 02:52 Calcium 8.9 mg/dL (8.5-10.1) 12/20/18 02:52 0.4 mg/dL (0.2-1.0) 12/20/18 02:52 AST 20 U/L (15-37) 12/20/18 02:52 ALT 24 U/L (12-78) 12/20/18 02:52 145 U/L (46-116) H 12/20/18 02:52 7.3 g/dL (6.4-8.2) 12/20/18 02:52 3.5 g/dL (3.4-5.0) 12/20/18 02:52 137 U/L (73-393) 12/20/18 02:52 Yellow (Yellow) 12/20/18 02:55 Clear (Clear) 12/20/18 02:55 7.0 (5-8) 12/20/18 02:55 Ur Specific [place] <= 1.005 (1.005-1.025) 12/20/18 02:55 Negative mg/dL (Negative) 12/20/18 02:55 Negative mg/dL (Negative) 12/20/18 02:55 Trace-intact (Negative) H 12/20/18 02:55 Negative (Negative) 12/20/18 02:55 Negative (Negative) 12/20/18 02:55 0.2 EU/dL (Up TO 0.2) 12/20/18 02:55 Ur Leukocyte Esterase Negative (Negative) 12/20/18 02:55 0-2 (0-2) 12/20/18 02:55 0-2 HPF (0-5) 12/20/18 02:55 Ur Epithelial Cells Many HPF (Negative) 12/20/18 02:55 Negative HPF (Negative) 12/20/18 02:55 Negative HPF (Negative) 12/20/18 02:55 Negative LPF (Negative) 12/20/18 02:55 Negative (Negative) 12/20/18 02:55 Ur Culture Indicated? No/sq. contamination 12/20/18 02:55 Negative mg/dL (Negative) 12/20/18 02:55
[2018-12-21] MEDS: Ondansetron 4 MG/2 ML VIAL IVP ×2 (14:46→22:55)
[2018-12-21] MEDS: Lactated Ringers 1,000 ML 75 ML IV (14:57)
[2018-12-21 15:50] VITALS: BP 149/83; PULSE 77; RESP 17; TEMP 36.8; O2SAT 98
[2018-12-21] MEDS: Milk of Magnesia 30 ML CUP PO (15:56)
--- NOTE | 2018-12-21 16:34 | PDOC.CMIN ---
- If Service Date Differs Date of service: 12/21/18 Time of Service: 16:34 Care Management Initial Assess REASON FOR HOSPITALIZATION:: Diverticulitis with abscess PAST MEDICAL HISTORY/PAST SURGICAL HISTORY:: Diverticulitis, asthma, fibromyalgia, anxiety, hypercholesteremia PREVIOUS FUNCTIONAL STATUS/SOCIAL/FAMILY SUPPORTS:: Jennie lives with her spouse Laz in [facility]. She has three children that are grown. She worked at [employer] for many years she now stays home. She keeps busy at home with her hobbies. She is indepedent with ADL's and transportation. CURRENT FUNCTIONAL STATUS:: Jennie makes good eye contact she is engaged with CM she is talkitive. She states sees her primary regularly. She does hope that she will not need a surgical intervention at this time. She states she does continue to have some discomfort in her abdoman. ADVANCE DIRECTIVES:: None on file CM offered to complete she states her family knows what she wants. Has patient been provided with information about the portal?: Yes Did the patient sign up for the portal?: No CODE STATUS:: Full Code INSURANCE COVERAGE / FINANCIAL ISSUES:: BCBS CURRENT HOME/COMMUNITY SERVICES/EQUIPMENT:: None PRIMARY CARE PHYSICIAN:: Chely Zhang POTENTIAL DISCHARGE NEEDS:: Follow up appointment with surgical provider and primary care. PATIENT/FAMILY EDUCATION NEEDS:: Discharge education, limitations and follow up plan of care including ask me three and self management. ANTICIPATED BARRIERS TO DISCHARGE:: None TRANSPORTATION:: Via family at time of discharge PLAN:: Jennie is receiving IV pain medication, antibotics and supportive care. She will be discharged home when medcailly ready per provider. CM to continue to provide support ongoing discharge planning and disposition.
[2018-12-21 18:22] LABS: Bilirubin Negative (Negative); Blood Large (Negative); Clarity Cloudy (Clear); Glucose Negative (Negative); Ketones 15 mg/dL (Negative); Leukocyte Esterase Large (Negative); Nitrite Negative (Negative); Specific Gravity >= 1.030 (1.005-1.025); Urobilinogen 0.2 EU/dL (Up TO 0.2); pH 5.5 (5-8)
[2018-12-21 18:45] LABS: Bacteria Moderate HPF (Negative); Crystals Negative HPF (Negative); Epithelial Cells Negative HPF (Negative); Mucus Negative (Negative); Other Cells Negative (Negative); RBC >50 (0-2); WBC >50 HPF (0-5)
[2018-12-21 18:46] LABS: C & S Indicated? Yes; Casts Negative LPF (Negative)
[2018-12-21] MEDS: Montelukast 10 MG TAB PO (21:49)
[2018-12-21] MEDS: Atorvastatin 20 MG TAB PO (21:49)
[2018-12-21] MEDS: ALPRAZolam 0.5 MG TAB 1 MG PO (22:55)
[2018-12-21 23:53] VITALS: BP 129/85; PULSE 76; RESP 17; TEMP 36.7; O2SAT 95
[2018-12-22] MEDS: PIPERACILLIN/TAZO 3.375 GM in Normal Saline 50 ML IVPB ×3 (04:12→19:53)
[2018-12-22 07:40] VITALS: BP 136/87; PULSE 73; RESP 18; TEMP 36.7; O2SAT 95
[2018-12-22] MEDS: Ondansetron 4 MG/2 ML VIAL IVP ×2 (08:32→19:48)
[2018-12-22] MEDS: Aspirin 81 MG CHEW PO (08:32)
[2018-12-22] MEDS: Docusate Sodium 100 MG CAP PO ×2 (08:32→19:52)
[2018-12-22] MEDS: Normal Saline Flush 10 ML SYR IVP ×2 (08:33→19:52)
[2018-12-22] MEDS: Ketorolac 30 MG/ML VIAL IVP (11:49)
--- NOTE | 2018-12-22 13:32 | W.PM.PROGNOT ---
Date of Service Date of service: 12/22/18 Time of Service: 13:32 Assessment and Plan (1) Diverticulitis large intestine: Current visit: Yes Status: Acute Will continue IV antibiotics and await urine sensitivities. UA does show blood and bacteria. Increase Colace. Patient prefers not to use Miralax Anticipate discharge tomorrow if continues on present course. Qualifiers: Diverticulitis complication: with perforation and abscess Diverticulitis bleeding: without bleeding Qualified Code(s): K57.20 - Diverticulitis of large intestine with perforation and abscess without bleeding Subjective Interval history since last seen: Slow improvement Passing flatus, no BM yet. Tolerating soft diet although had some nausea last night with dinner Pain is improving Had very cloudy urine last night, now more normal but with some sediment Exam Narrative Exam Narrative: No acute distress Abdomen soft, stable or slightly improved suprapubic tenderness No peritonitis or distension Objective Objective Clinical Data: Abnormal lab results 12/21/18 Range/Units 17:20 Ur Specific [place] >= 1.030 H (1.005-1.025) Urine Protein >=300 H (Negative) mg/dL Urine Ketones 15 H (Negative) mg/dL Urine Blood Large H (Negative) Ur Leukocyte Esterase Large H (Negative) Urine RBC >50 H (0-2) Vital Signs Temperature 98.1 F 12/22/18 07:40 Temperature Source Skin 12/22/18 07:40 Pulse 73 12/22/18 07:40 Pulse Rhythm Regular 12/22/18 08:42 Respiratory Rate 18 12/22/18 07:40 Respiratory Effort Non-Labored 12/22/18 08:42 Respiratory Depth Normal 12/22/18 08:42 Respiratory Pattern Normal 12/22/18 08:42 Blood Pressure 136/87 12/22/18 07:40 Pulse Oximetry 95 12/22/18 07:40 Oxygen Delivery Method Room Air 12/22/18 07:40 Oxygen Flow Rate 0 12/22/18 07:40 Pain Level 8 12/22/18 11:49 Comment 12/21/18 07:55 Intake & Output 12/21/18 12/22/18 12/22/18 23:59 11:59 23:59 Intake Total 1360 / 2347.50 1472.5 / 1592.5 120 / 1592.5 Output Total 250 / 550 750 / 750 Balance 1110 / 1797.50 722.5 / 842.5 120 / 842.5 Intake: IV 50 / 1037.50 752.5 / 752.5 Oral 1310 / 1310 720 / 840 120 / 840 Output: Urine 250 / 550 400 / 400 Emesis 350 / 350 Other: Urine Color Light Maryam Yellow Urine Appearance Cloudy Clear Purulent Urine Odor Foul Foul Comment Yancey thick milk urine. foul odor. UA sent. notified by Eula Wisdom Emesis Description Undigested Food Clear/Water Voiding Methods Toilet Toilet Laboratory Results WBC 8.82 k/cumm (4.4-10.8) 12/21/18 06:40 RBC 4.40 m/cumm (4.00-5.20) 12/21/18 06:40 Hgb 12.2 g/dL (12.0-15.5) 12/21/18 06:40 Hct 37.9 % (36.0-46.0) 12/21/18 06:40 MCV 86.1 fL (80-95) 12/21/18 06:40 MCH 27.7 pg (27.0-33.0) 12/21/18 06:40 MCHC 32.2 g/dL (32.0-36.0) 12/21/18 06:40 RDW 13.2 % (11.7-14.6) 12/21/18 06:40 Plt Count 255 x1000/uL (130-400) 12/21/18 06:40 MPV 10.3 fL (8.0-11.0) 12/21/18 06:40 Immature Gran % 0.1 12/21/18 06:40 75.7 12/21/18 06:40 14.7 12/21/18 06:40 6.9 12/21/18 06:40 2.4 12/21/18 06:40 0.2 12/21/18 06:40 Absolute Neutrophils 6.67 k/cumm (1.2-6.7) 12/21/18 06:40 Absolute Lymphocytes 1.30 k/cumm (1.2-3.4) 12/21/18 06:40 Absolute Monocytes 0.61 k/cumm (0.11-0.7) 12/21/18 06:40 Absolute Eosinophils 0.21 k/cumm (0.0-0.7) 12/21/18 06:40 Absolute Basophils 0.02 k/cumm (0.0-0.2) 12/21/18 06:40 Sodium 134 mmol/L (136-145) L 12/20/18 02:52 Potassium 3.8 mmol/L (3.5-5.1) 12/20/18 02:52 Chloride 97 mmol/L (98-107) L 12/20/18 02:52 Carbon Dioxide 24.7 mmol/L (21.0-32.0) 12/20/18 02:52 12.3 mmol/L (3-11) H 12/20/18 02:52 BUN 9 mg/dL (7-18) 12/20/18 02:52 0.68 mg/dL (0.55-1.02) 12/20/18 02:52 >= 60.00 (mL/min/1.73m2) 12/20/18 02:52 Glucose 102 mg/dL (70-100) H 12/20/18 02:52 Calcium 8.9 mg/dL (8.5-10.1) 12/20/18 02:52 0.4 mg/dL (0.2-1.0) 12/20/18 02:52 AST 20 U/L (15-37) 12/20/18 02:52 ALT 24 U/L (12-78) 12/20/18 02:52 145 U/L (46-116) H 12/20/18 02:52 7.3 g/dL (6.4-8.2) 12/20/18 02:52 3.5 g/dL (3.4-5.0) 12/20/18 02:52 137 U/L (73-393) 12/20/18 02:52 Yellow (Yellow) 12/21/18 17:20 Cloudy (Clear) 12/21/18 17:20 5.5 (5-8) 12/21/18 17:20 Ur Specific [place] >= 1.030 (1.005-1.025) H 12/21/18 17:20 >=300 mg/dL (Negative) H 12/21/18 17:20 15 mg/dL (Negative) H 12/21/18 17:20 Large (Negative) H 12/21/18 17:20 Negative (Negative) 12/21/18 17:20 Negative (Negative) 12/21/18 17:20 0.2 EU/dL (Up TO 0.2) 12/21/18 17:20 Ur Leukocyte Esterase Large (Negative) H 12/21/18 17:20 >50 (0-2) H 12/21/18 17:20 >50 HPF (0-5) 12/21/18 17:20 Ur Epithelial Cells Negative HPF (Negative) 12/21/18 17:20 Negative HPF (Negative) 12/21/18 17:20 Moderate HPF (Negative) 12/21/18 17:20 Negative LPF (Negative) 12/21/18 17:20 Negative (Negative) 12/21/18 17:20 Negative (Negative) 12/21/18 17:20 Ur Culture Indicated? Yes 12/21/18 17:20 Negative mg/dL (Negative) 12/21/18 17:20
[2018-12-22 15:50] VITALS: BP 125/78; PULSE 71; RESP 18; TEMP 36.8; O2SAT 96
--- NOTE | 2018-12-22 17:00 | PDOC.CMPRO ---
- If Service Date Differs Date of service: 12/22/18 Time of Service: 17:00 Care Management Progress Note S/O:Jennie was first encountered walking in the halls with her and son. Later CM visited them in her room. Jennie was pleasant and friendly and readily engaged in conversation. She stated that she is feeling better but still has pain. She relayed that she is able to tolerate her diet and may possibly go home tomorrow. She also shared that she will return in 4-6 weeks to undergo a resection of her bowel. A: Jennie is a very pleasant 58 year old woman admitted to [facility] with a diverticular abscess on 12/20/18. P:Jennie remains acute level of care. She is receiving IV antibiotics and IV fluids. Jennie will be discharged home with no services when ready. She will follow up with her surgeon and return in 4-6 weeks to have a bowel resection.CM will continue to provide support to patient, family and the discharge planning process.
[2018-12-22] MEDS: Lactated Ringers 1,000 ML 75 ML IV (18:08)
[2018-12-22] MEDS: Atorvastatin 20 MG TAB PO (21:20)
[2018-12-22] MEDS: Montelukast 10 MG TAB PO (21:20)
[2018-12-22] MEDS: ALPRAZolam 0.5 MG TAB 1 MG PO (21:25)
[2018-12-22 23:44] VITALS: BP 151/96; PULSE 85; RESP 18; TEMP 37.4; O2SAT 95
[2018-12-23] MEDS: Ketorolac 30 MG/ML VIAL IVP ×2 (01:40→08:07)
[2018-12-23] MEDS: PIPERACILLIN/TAZO 3.375 GM in Normal Saline 50 ML IVPB (03:30)
[2018-12-23 07:30] VITALS: BP 136/85; PULSE 66; RESP 18; TEMP 36.7; O2SAT 96
[2018-12-23 08:00] LABS: HCT 33.8 % (36.0-46.0); HGB 11.1 g/dL (12.0-15.5); Mean Corp. HGB Concentration 32.8 g/dL (32.0-36.0); Mean Corpuscular Hemoglobin 28.5 pg (27.0-33.0); Mean Corpuscular Volume 86.9 fL (80-95); Mean Platelet Volume 10.1 fL (8.0-11.0); Platelet Count 241 x1000/uL (130-400); RBC 3.89 m/cumm (4.00-5.20); RBC Distribution Width 12.8 % (11.7-14.6); White Blood Cell Count 5.13 k/cumm (4.4-10.8)
[2018-12-23] MEDS: Normal Saline Flush 10 ML SYR IVP (08:08)
[2018-12-23] MEDS: Docusate Sodium 100 MG CAP PO (08:08)
[2018-12-23] MEDS: Aspirin 81 MG CHEW PO (08:09)
[2018-12-23] MEDS: Lactobacillus Acidophilus CAP 1 CAP PO (08:09)
--- NOTE | 2018-12-23 11:25 | W.PM.DS.N ---
Date of service: 12/23/18 Time of Service: 11:25 DS: Diagnosis Discharge Diagnosis (1) Diverticulitis large intestine: Status: Acute Discharge Plan Disposition Patient Disposition: HOME Condition: Good Discharge Details Chief Complaint: Abd Prob Clinical Impression: Abdominal pain, Colonic diverticular abscess Reason For Visit: DIVERTICULITIS ABCESS Admit Date/Time: 12/20/18 04:37 Admit Provider: Annamaria Wright Attending Provider: Annamaria Wright Primary Care Provider: Chely Zhang ED Provider: Devon Mcknight Hospital Course Hospital Course: Patient presented to the emergency department with left lower quadrant pain. She had been treated as an outpatient recently for diverticulitis with a course of Augmentin without significant improvement. CT scan of the abdomen and pelvis showed an approximately 2 and half centimeter abscess between the colon and bladder. Patient was admitted for IV antibiotics and slowly improved over the next few days. She remained afebrile with stable vital signs. Her white blood cell count was normal on admission and at discharge. Her hospital course was significant for evidence of developing colovesical fistula. She had a purulent type discharge and then on the day of discharge had some pneumaturia. Urinalysis did not grow significant bacteria but did have multiple bacteria present. She will follow-up in the office to discuss an elective sigmoid resection. Home Meds and New Rx's Prescriptions: Continued atorvastatin [Lipitor] 20 mg Tablet 20 mg PO HS RF: 0 alprazolam 1 mg Tablet 1 mg PO HS RF: 0 aspirin 81 mg Tablet,Chewable 81 mg PO DAILY RF: 0 montelukast [Singulair] 10 mg Tablet 10 mg PO HS RF: 0 duloxetine [Cymbalta] 60 mg Capsule,Delayed Release(Dr/Ec) 60 mg PO HS RF: 0 ondansetron 4 mg tablet,disintegrating 4 mg PO QID PRN (Reason: nausea) Qty: 30 RF: 0 albuterol sulfate 90 mcg/actuation Hfa Aerosol Inhaler 1 puff INHALATION Q6H PRNRF: 0 amoxicillin-pot clavulanate [Augmentin] 875-125 mg tablet 1 tab PO Q12H Qty: 14 RF: 0 No Action oxycodone 5 mg tablet 5 mg PO Q4H PRN (Reason: pain) Qty: 10 RF: 0 Discharge Instructions Additional Instructions: Call for worsening pain, fever or other concerns. Okay to use Tylenol and ibuprofen as needed for pain. Use a stool softener as needed Referrals: Carissa Kohli MD [ [facility] STAFF PHYSICIAN] - (Return to my office in two weeks to discuss surgery) Chely Zhang [Primary Care Provider] - Activity:: Activity as Tolerated Equipment/Supplies:: No Equipment Needed Diet:: Normal Diet Discharge Orders Discharge Orders: Discharge Order (Routine); Ordered 12/23/18 Ordered By: Carissa Kohli Exam Narrative Exam Narrative: No acute distress Abdomen soft, minimal tenderness DS: Data Vitals/I&O Vitals and I&O: Vital Signs Temperature 98.1 F 12/23/18 07:30 Temperature Source Skin 12/23/18 07:30 Pulse 66 12/23/18 07:30 Pulse Rhythm Regular 12/23/18 09:48 Respiratory Rate 18 12/23/18 07:30 Respiratory Effort Non-Labored 12/23/18 09:48 Respiratory Depth Normal 12/23/18 09:48 Respiratory Pattern Normal 12/23/18 09:48 Blood Pressure 136/85 12/23/18 07:30 Pulse Oximetry 96 12/23/18 07:30 Oxygen Delivery Method Room Air 12/23/18 07:30 Oxygen Flow Rate 0 12/23/18 07:30 Pain Level 3 12/23/18 09:07 Comment 12/22/18 23:44 Intake & Output 12/22/18 12/22/18 12/23/18 11:59 23:59 11:59 Intake Total 1472.5 / 2513.75 1041.25 / 2513.75 458.75 / 458.75 Output Total 750 / 850 100 / 850 Balance 722.5 / 1663.75 941.25 / 1663.75 458.75 / 458.75 Intake: IV 752.5 / 933.75 181.25 / 933.75 208.75 / 208.75 Oral 720 / 1580 860 / 1580 250 / 250 Output: Urine 400 / 500 100 / 500 Emesis 350 / 350 Other: Urine Color Yellow Yellow Yellow Urine Appearance Clear Sediment Clear Urine Odor Foul Normal Normal Stool Size Small Stool Characteristics Soft Formed Emesis Description Undigested Food Clear/Water Voiding Methods Toilet Toilet Toilet Labs on day of discharge: Labs from last 24 hours 12/23/18 06:44 WBC 5.13 RBC 3.89 L Hgb 11.1 L Hct 33.8 L MCV 86.9 MCH 28.5 MCHC 32.8 RDW 12.8 Plt Count 241 MPV 10.1 PFSH Medical History Anxiety (Chronic) Asthma (Inactive) Fibromyalgia (Acute) Hypercholesteremia (Acute) Surgical History H/O hysterectomy for benign disease (Acute) Social History Smoking/Tobacco Use Status: Former Tobacco Use Alcohol Intake: never Drug use: Never Substance use type: does not use Do you feel safe in your relationship?: Yes
--- NOTE | 2018-12-23 11:57 | PDOC.CMDIS ---
LACE Index Scoring Tool - Questions: Length of Stay (in days): 3 Acuity (Admit via E.D.?): Yes E.D. Visits: 3 - Answers: Total Score: 9 Risk of Readmission: Low Risk Care Management Discharge Reason for Hospitalization: Diverticulitis with abscess Discharge Plan: Jennie will discharge home with no additional services at this time. She will follow up with her surgeon and return in 4-6 weeks to have a bowel resection. She will transport via private vehicle with her SO, Laz. Patient/Family Education Needs: Review of discharge instructions, discuss Ask Me Three.
== END 2018-12-23 12:15 | disposition home or self-care (01) | DRG 392 ==
LOC: ER 03:21 → MS 06:23
PROVIDERS: Admitting Provider Surgery; Emergency Provider Student in an Organized Health Care Education/Training Program; PCP Nurse Practitioner; Visit Provider Surgery
DX: K57.20 Diverticulitis of large intestine with perforation and abscess without bleeding (principal); R39.89 Other symptoms and signs involving the genitourinary system
CPT/HCPCS: 36415; 80053; 83690; 85027; 96361; 96374; 99222; 99231; 99238; 99285; 74177; 81003; 81015; 85025; 87086; 99284; J1885; J2405; J2543; J3490

== ENCOUNTER 2019-02-26 07:06 | Inpatient (IN) | payer BC, SELFPAY ==
[2019-02-26] VITALS (13 sets, daily range): BP systolic 103–174; BP diastolic 68–99; PULSE 52–94; RESP 10–22; TEMP 36.2–37.1; O2SAT 92–100
[2019-02-26] MEDS: metroNIDAZOLE 500 MG/100 ML BAG 100 MG IVPB (08:02)
[2019-02-26] MEDS: Lactated Ringers 1,000 ML 80 ML IV ×2 (08:02→11:18)
[2019-02-26] MEDS: Acetaminophen 500 MG TAB ×2 (08:04)
[2019-02-26] MEDS: ceFAZolin 2 GM/50 ML BAG IVPB (09:50)
[2019-02-26] MEDS: Bupivacaine 0.25% Pres-Free 30 ML VIAL (10:45)
--- NOTE | 2019-02-26 12:23 | ROE_ITS ---
DATE OF PROCEDURE: February 26, 2019 PREOPERATIVE DIAGNOSIS: Diverticulitis. POSTOPERATIVE DIAGNOSIS: Diverticulitis. PROCEDURE: Cystoscopy with insertion of bilateral ureteral stents. SURGEON: Sudeep Cabrera M.D. ANESTHESIA: General. COMPLICATIONS: None. ESTIMATED BLOOD LOSS: Minimal. HISTORY: This is a 59-year-old woman who has a history of diverticulitis and fistulization to the bl adder. She presents today for colon resection. I have been asked to place ureteral stents to help i dentify the ureters intraoperatively. Since the procedure is planned for a laparoscopic approach, we will place lighted stents. OPERATIVE REPORT: The patient was brought to the Operating Room on 02/26/19. She was placed in the d orsal lithotomy position. Her genitalia was prepped and draped. A 22 Tanzanian rigid cystoscope was passed through the urethra into the bladder. The bladder was inspec clover with a 30-degree lens. Both ureteral orifices were identified. Each orifice was cannulated with a lighted stent. The stent s were advanced until the appropriate marking was identified. The scope was then removed, leaving the stents in place. The stents were withdrawn to the red marker at the patient's urethral meatus. A 16 Tanzanian Kwong catheter was passed through the urethra into the bladder. The catheter balloon was inflated with 10 cc's of sterile water. The stents were then anchored to the exterior of the cathet er using Steri-Strips. The catheter was hooked to gravity drainage. The stents were hooked to a light source. The remainder of the procedure will be done by Dr. Kohli and the General Surgery team.
--- NOTE | 2019-02-26 12:50 | BOWEL_PTH ---
PATIENT: Jennie Pedraza LOC: U#:[id number] AGE/SX: 59/F ROOM: [id number] RE02/26/[address]: Carissa Kohli MD : [id number] BED: A DIS: 03/01/2019 SPEC #: [id number] RECD: 02/26/19 15:26 STATUS: HEATHER REQ #: [id number] LILIANA: 02/26/19 12:[address]: Carissa Kohli DEPT: Surgical Specimen RECD BY: Lisa Perez ENTERED: 02/26/19 15:27 SP TYPE: Bowel OTHR DR: Chely Zhang Tissues: 1 - BOWEL RESECTION(OTHER) Procedures: GROSS AND MICRO LEVEL 5 Comments: [id number]
[2019-02-26] MEDS: Bupivacaine 0.25% Pres-Free 10 ML VIAL (14:00)
[2019-02-26] MEDS: Ondansetron 4 MG/2 ML VIAL IVP (14:41)
[2019-02-26] MEDS: HYDROmorphone 2 MG/ML VIAL IVP (14:48)
[2019-02-26] MEDS: fentaNYL 100 MCG/2 ML VIAL IVP (14:48)
--- NOTE | 2019-02-26 16:11 | NUR.NOTE ---
Pt transferred from PACU to 225 s/p hemicolectomy via stretcher hover mat used for transfer. A&O x3, states abd pain 8/10, abd slightly distended, soft and tender, lap sites x4, call knight with in reach.
[2019-02-26] MEDS: Lactated Ringers 1,000 ML 75 ML IV (16:27)
[2019-02-26] MEDS: Ketorolac 30 MG/ML VIAL IVP (16:27)
--- NOTE | 2019-02-26 16:27 | ROE_ITS ---
DATE OF PROCEDURE: February 26, 2019 PREOPERATIVE DIAGNOSIS: Sigmoid diverticulitis with colovesical fistula. POSTOPERATIVE DIAGNOSIS: Sigmoid diverticulitis with colovesical fistula. PROCEDURE: Laparoscopic sigmoid resection. SURGEON: Carissa Kohli M.D. BOX TENDER: Annamaria Wright M.D. ANESTHESIA: TAP block, general and local. INDICATIONS: This is a 59-year-old woman who was admitted earlier this year with perforated sigmoid diverticulitis. This resolved with antibiotics, although during her hospitalization she developed symptoms of a colovesical fistula. She has continued to pass air through the bladder intermittently since then and is having frequent UTI's. PROCEDURE: The patient was placed supine on the operating table and after induction of general anesthetic was placed carefully into [facility] stirrups. Dr. Cabrera placed bilateral lighted ureteral stents. Please see his dictation for details. The patient had had a bilateral TAP block placed. Her abdomen was prepped and draped sterilely. A 5 mm incision was made above and to the right of the umbilicus after injecting local anesthetic. The abdomen was entered under direct visualization and a CO2 pneumoperitoneum was begun. Despite the patient's multiple prior abdominal surgeries, she had very little in the way of intraabdominal adhesions. There was one piece of omentum stuck to the anterior abdominal wall that was taken down with a LigaSure. I placed a 5 mm port in the right mid-abdomen and a 12 mm port in the right lower quadrant. The patient was placed in Trendelenburg position. The small bowel was mobilized out of the pelvis. The area of diseased colon was isolated to a short segment of sigmoid colon that was densely adherent to the bladder. I mobilized the colon proximally by taking down the white line of Toldt and then worked from normal tissue down to diseased tissue. We did intermittently visualize the ureters using the lighted stents. There was a dense adhesion of the sigmoid to the bladder that was taken down with a combination of careful blunt dissection as well as using the LigaSure. There was not a visible opening in the bladder. The diseased sigmoid colon was then lifted up with a grasper after placing an additional 5mm port in the left lower quadrant. The mesentery was opened up with the LigaSure and the vascular pedicle identified. This was divided with a vascular staple load. The rectum was then divided; this was done using a single load of the bowel stapler. The end of the sigmoid colon was grasped with a ratchet grasper and then we made a small open incision in the left lower quadrant where the port had been placed. This measured about 5 cm long. The inferior epigastric vessels were identified, clamped, divided and ligated. The peritoneum was entered sharply. The small Mobius Retractor was placed and then the colon brought out through the incision. Again, the diseased segment was only about 10 cm long. The sigmoid colon was divided proximal to this at a healthy portion using the linear stapler. I then used the pursestring tool to place the pursestring on the proximal sigmoid and then trim up the staple line. The colon was quite small, so I selected a 25 circular stapler and placed the anvil in the proximal sigmoid. The suture was tightened and tied and any excess fat taken down. The colon was then dropped back into the abdomen and the Mobius Retractor removed. The peritoneum was closed with a running #2-0 Vicryl stitch and the anterior rectus sheath closed with a running #0 PDS. The wound was packed with a moist RAY-LUPE. We then returned to a laparoscopic approach. Inspection of the pelvis revealed a small amount of oozing from the staple line on the mesentery. This was controlled nicely with clip application. The bladder was filled with 210 cc's of saline mixed with methylene blue. This resulted in a distension of the bladder and there was no evidence of leak where the colon had been adhered. The pelvis was irrigated and suctioned clean with good hemostasis. Dr. Wright then inserted the circular stapler into the rectum. The rectal stump was quite long so we could not bring the stapler all the way to the end of the rectal stump. The point of the stapler was brought out about 3 or 4 cm proximal to the staple line on the anterior wall of the rectum. The sigmoid anvil was then affixed to the stapler, which was tightened and fired. The stapler was removed. The proximal and distal donuts were intact. There was no tension on the anastomosis. The pelvis was filled with fluid and the proximal sigmoid occluded with a grasper. Insufflation of air into the rectum caused no air leak. The fluid was suctioned from the pelvis. A few clips were placed on the staple line on the rectal stump for hemostasis. The 12 port was removed and the suture passer used to place an #0 PDS in the right lower quadrant incision. The remaining ports were removed after releasing the CO2. The skin was closed at all sites with a #4-0 Monocryl subcuticular stitch. She tolerated the procedure well and was stable to recovery.
[2019-02-26] MEDS: LIDOCAINE/D5W 2,000 MG/500 ML BAG 30 MG IV (17:59)
[2019-02-26] MEDS: Atorvastatin 20 MG TAB PO (21:52)
[2019-02-26] MEDS: ALPRAZolam 0.5 MG TAB 1 MG PO (21:52)
[2019-02-26] MEDS: Montelukast 10 MG TAB PO (21:52)
[2019-02-27] MEDS: Ketorolac 30 MG/ML VIAL IVP (01:52)
[2019-02-27] MEDS: Ondansetron 4 MG/2 ML VIAL IVP ×3 (01:52→15:20)
[2019-02-27 03:26] VITALS: BP 117/74; PULSE 79; RESP 18; TEMP 37; O2SAT 95
[2019-02-27] MEDS: Lactated Ringers 1,000 ML 75 ML IV (05:32)
[2019-02-27 07:14] LABS: HCT 32.3 % (36.0-46.0); HGB 10.6 g/dL (12.0-15.5); Mean Corp. HGB Concentration 32.8 g/dL (32.0-36.0); Mean Corpuscular Volume 85.2 fL (80-95); Mean Platelet Volume 9.9 fL (8.0-11.0); Platelet Count 245 x1000/uL (130-400); RBC 3.79 m/cumm (4.00-5.20); RBC Distribution Width 14.1 % (11.7-14.6)
[2019-02-27 07:25] LABS: Anion Gap 11.3 mmol/L (3-11); BUN 8 mg/dL (7-18); CO2 22.7 mmol/L (21.0-32.0); CREATININE 0.64 mg/dL (0.55-1.02); Chloride 94 mmol/L (98-107); Glucose 85 mg/dL (70-100); Potassium 3.9 mmol/L (3.5-5.1); Sodium 128 mmol/L (136-145)
[2019-02-27 07:46] LABS: Absolute Monocyte Count 0.48 k/cumm (0.11-0.7); Absolute Neutrophil Count 6.16 k/cumm (1.2-6.7)
[2019-02-27 07:47] LABS: Absolute Basophil Count 0.08 k/cumm (0.0-0.2); Absolute Eosinophil Count 0.08 k/cumm (0.0-0.7); Diff Comment Manual Differential; Polychromasia Present
[2019-02-27 07:53] VITALS: BP 109/68; PULSE 90; RESP 17; TEMP 36.8; O2SAT 95
[2019-02-27] MEDS: Aspirin 81 MG CHEW PO (08:55)
--- NOTE | 2019-02-27 09:01 | W.PM.PROGNOT ---
Date of Service Date of service: 02/27/19 Time of Service: 09:01 Assessment and Plan Assessment and plan (1) S/P laparoscopic colectomy: Status: Acute Assessment and plan: POD #1 s/p Laproscopic Sigmoid Colectomy for Diverticulitis and colovesicle fistula. PAIN- currently well controlled. Currenlty available for pain- Tylenol, Toradol, hydrocodone and Morphine. RESP- Encouraged use of the incentive spirometer and ambulation in the hallway. - Kwong in plae with good output DIET- Clear liquid diet P// Today will ensure good pain control Encourage activity out of bed as tolerated Subjective Subjective Interval history since last seen: It doesn't hurt as much as I thought it would. She reports pain has been well controlled over night. She ambulated 4 laps in the evening. Tolerating clear liquid diet. Denies any nausea or vomiting. Exam Const General: cooperative, healthy appearing and comfortable Orientation: alert and oriented x3 Resp Effort & Inspection: normal respiratory effort, no audible wheezes and no cough Other: Kwong in place Objective Objective Clinical Data: Abnormal lab results 02/27/19 02/27/19 Range/Units 06:41 06:41 RBC 3.79 L (4.00-5.20) m/cumm Hgb 10.6 L (12.0-15.5) g/dL Hct 32.3 L (36.0-46.0) % Sodium 128 L (136-145) mmol/L Chloride 94 L (98-107) mmol/L Anion Gap 11.3 H (3-11) mmol/L Calcium 8.0 L (8.5-10.1) mg/dL Vital Signs Temperature 36.8 C 02/27/19 07:53 Temperature Source Tympanic 02/27/19 07:53 Pulse 90 02/27/19 07:53 Pulse Rhythm Regular 02/27/19 05:58 Respiratory Rate 17 02/27/19 07:53 Respiratory Effort 02/27/19 05:58 Respiratory Depth Normal 02/27/19 05:58 Respiratory Pattern Normal 02/27/19 05:58 Blood Pressure 109/68 02/27/19 07:53 Pulse Oximetry 95 02/27/19 07:53 Respiratory End-tidal CO2 34 02/26/19 15:27 Oxygen Delivery Method Room Air 02/27/19 07:53 Oxygen Flow Rate 0 02/27/19 07:53 Pain Level 8 02/27/19 08:54 Intake & Output 02/26/19 02/27/19 02/27/19 18:59 06:59 18:59 Intake Total 2278.75 / 3231.25 952.5 / 3231.25 Output Total 330 / 1655 1325 / 1655 Balance 1948.75 / 1576.25 -372.5 / 1576.25 Weight 54 kg Intake: IV 2278.75 / 3131.25 852.5 / 3131.25 Oral 100 / 100 Output: Urine 300 / 1625 1325 / 1625 Estimated Blood Loss 30 Other: Urine Color Indigo Yellow Urine Appearance Clear Cloudy Comment methylene blue used intraop. Laboratory Results WBC 8.00 k/cumm (4.4-10.8) 02/27/19 06:41 RBC 3.79 m/cumm (4.00-5.20) L 02/27/19 06:41 Hgb 10.6 g/dL (12.0-15.5) L 02/27/19 06:41 Hct 32.3 % (36.0-46.0) L 02/27/19 06:41 MCV 85.2 fL (80-95) 02/27/19 06:41 MCH 28.0 pg (27.0-33.0) 02/27/19 06:41 MCHC 32.8 g/dL (32.0-36.0) 02/27/19 06:41 RDW 14.1 % (11.7-14.6) 02/27/19 06:41 Plt Count 245 x1000/uL (130-400) 02/27/19 06:41 MPV 9.9 fL (8.0-11.0) 02/27/19 06:41 Immature Gran % 0.0 02/27/19 06:41 Neutrophils % 77.0 02/27/19 06:41 Lymphocytes % 15.0 02/27/19 06:41 Monocytes % 6.0 02/27/19 06:41 Eosinophils % 1.0 02/27/19 06:41 Basophils % 1.0 02/27/19 06:41 Absolute Neutrophils 6.16 k/cumm (1.2-6.7) 02/27/19 06:41 Absolute Lymphocytes 1.20 k/cumm (1.2-3.4) 02/27/19 06:41 Absolute Monocytes 0.48 k/cumm (0.11-0.7) 02/27/19 06:41 Absolute Eosinophils 0.08 k/cumm (0.0-0.7) 02/27/19 06:41 Absolute Basophils 0.08 k/cumm (0.0-0.2) 02/27/19 06:41 Differential Comment Manual differential 02/27/19 06:41 RBC Morphology See below 02/27/19 06:41 Polychromasia Present 02/27/19 06:41 Sodium 128 mmol/L (136-145) L 02/27/19 06:41 Potassium 3.9 mmol/L (3.5-5.1) 02/27/19 06:41 Chloride 94 mmol/L (98-107) L 02/27/19 06:41 Carbon Dioxide 22.7 mmol/L (21.0-32.0) 02/27/19 06:41 Anion Gap 11.3 mmol/L (3-11) H 02/27/19 06:41 BUN 8 mg/dL (7-18) 02/27/19 06:41 Creatinine 0.64 mg/dL (0.55-1.02) 02/27/19 06:41 Estimated GFR/1.73 m2 >= 60.00 (mL/min/1.73m2) 02/27/19 06:41 Glucose 85 mg/dL (70-100) 02/27/19 06:41 Calcium 8.0 mg/dL (8.5-10.1) L 02/27/19 06:41
[2019-02-27 11:17] VITALS: BP 119/74; PULSE 75; RESP 18; TEMP 36.9; O2SAT 95
--- NOTE | 2019-02-27 11:27 | INITIAL_ITS ---
- If Service Date Differs Date of service: 02/27/19 Time of Service: 11:27 Care Management Initial Assess REASON FOR HOSPITALIZATION:: sigmoid diverticulitis with colovesical fistula PAST MEDICAL HISTORY/PAST SURGICAL HISTORY:: Medical History: Anxiety (Chr onic). Asthma (Inactive). Fibromyalgia (Acute). Hypercholesteremia (Acute). History of Lyme disease. Surgical History: H/O hysterectomy for benign disease (Acute). Appendectomy. ovarian cystectomy. tonsillectomy PREVIOUS FUNCTIONAL STATUS/SOCIAL/FAMILY SUPPORTS:: Jennie lives with her spouse Laz in [facility]. She has three children that are grown. She w orked at [employer] for many years but she is now stays home. She keeps busy at home with her hobbies. She is indepedent with ADL's and transportation. CURRENT FUNCTIONAL STATUS:: Jennie was sitting up in bed when CM came to meet with her. She was complaining of right sided abdominal discomfort after straining a muscle while vomitting.She continues to have nausea and has vomitted 3 times. Jennie does not anticipate needing any services upon discharge. ADVANCE DIRECTIVES:: Has not completed any advanced directives Has patient been provided with information about the portal?: No Did the patient sign up for the portal?: No CODE STATUS:: Full Code INSURANCE COVERAGE / FINANCIAL ISSUES:: NEYMAR NAVARRO CURRENT HOME/COMMUNITY SERVICES/EQUIPMENT:: none PRIMARY CARE PHYSICIAN:: Chely Zhang POTENTIAL DISCHARGE NEEDS:: Follow up with surgeon, PCP and discharge plan of care PATIENT/FAMILY EDUCATION NEEDS:: Discharge plan, limitations, follow up plan and Ask Me Three. ANTICIPATED BARRIERS TO DISCHARGE:: none identified TRANSPORTATION:: via private vehicle with PLAN:: Jennie is recovering after having a sigmoid resection. She will be discharged home with no new services. CM will continue to follow and provide support to patient, family and discharfe planning needs.
[2019-02-27] MEDS: Normal Saline 1,000 ML 75 ML IV ×2 (12:21→23:36)
--- NOTE | 2019-02-27 13:53 | CHAPLAIN ---
Jennie was in bed when I visited. She said she was expected her to be in later. I explained my role and offered ongoing support.
[2019-02-27 15:50] VITALS: BP 115/71; PULSE 73; RESP 16; TEMP 37; O2SAT 94
[2019-02-27] MEDS: Droperidol 5 MG/2 ML VIAL 0.625 MG IVP (16:39)
[2019-02-27] MEDS: Normal Saline Flush 10 ML SYR IVP (16:40)
[2019-02-27] MEDS: Omeprazole 20 MG CAPCR PO (19:50)
[2019-02-27 20:16] VITALS: BP 123/74; PULSE 75; RESP 17; TEMP 37; O2SAT 95
[2019-02-27] MEDS: ALPRAZolam 0.5 MG TAB 1 MG PO (21:58)
[2019-02-27] MEDS: Montelukast 10 MG TAB PO (21:58)
[2019-02-27] MEDS: Atorvastatin 20 MG TAB PO (21:58)
[2019-02-28 00:52] VITALS: BP 123/74; PULSE 88; RESP 18; TEMP 37.5; O2SAT 94
[2019-02-28 07:20] VITALS: BP 142/84; PULSE 98; RESP 16; TEMP 36.8; O2SAT 96
[2019-02-28] MEDS: Omeprazole 20 MG CAPCR PO ×2 (07:41→19:47)
[2019-02-28] MEDS: Aspirin 81 MG CHEW PO (07:41)
--- NOTE | 2019-02-28 10:28 | W.PM.PROGNOT ---
Date of Service Date of service: 02/28/19 Time of Service: 10:28 Subjective Subjective Interval history since last seen: Pt is doing well. no headaches. No CP or SOB. no productive cough. no dysuria. no leg pain or swelling. pt had lots of problems w/ n/v yest. droperidol helped/zofran did not. wants to take shower. Objective Objective Clinical Data: Vital Signs Temperature 36.8 C 02/28/19 07:20 Temperature Source Tympanic 02/28/19 07:20 Pulse 98 H 02/28/19 07:20 Pulse Rhythm Regular 02/28/19 03:50 Respiratory Rate 16 02/28/19 07:20 Respiratory Effort Non-Labored 02/28/19 03:50 Respiratory Depth Normal 02/28/19 03:50 Respiratory Pattern Normal 02/28/19 03:50 Blood Pressure 142/84 H 02/28/19 07:20 Pulse Oximetry 96 02/28/19 07:20 Respiratory End-tidal CO2 34 02/26/19 15:27 Oxygen Delivery Method Room Air 02/28/19 07:20 Oxygen Flow Rate 0 02/28/19 07:20 Pain Level 8 02/28/19 07:41 Intake & Output 02/27/19 02/27/19 02/28/19 11:59 23:59 11:59 Intake Total 952.5 / 3653.75 2701.25 / 3653.75 590 / 590 Output Total 1325 / 2675 1350 / 2675 4600 / 4600 Balance -372.5 / 978.75 1351.25 / 978.75 -4010 / -4010 Intake: IV 852.5 / 3033.75 2181.25 / 3033.75 10 / 10 Oral 100 / 620 520 / 620 580 / 580 Output: Urine 1325 / 2675 1350 / 2675 4600 / 4600 Other: Urine Color Yellow Straw Pale Yellow Urine Appearance Cloudy Clear Clear Stool Size Smear Laboratory Results WBC 8.00 k/cumm (4.4-10.8) 02/27/19 06:41 RBC 3.79 m/cumm (4.00-5.20) L 02/27/19 06:41 Hgb 10.6 g/dL (12.0-15.5) L 02/27/19 06:41 Hct 32.3 % (36.0-46.0) L 02/27/19 06:41 MCV 85.2 fL (80-95) 02/27/19 06:41 MCH 28.0 pg (27.0-33.0) 02/27/19 06:41 MCHC 32.8 g/dL (32.0-36.0) 02/27/19 06:41 RDW 14.1 % (11.7-14.6) 02/27/19 06:41 Plt Count 245 x1000/uL (130-400) 02/27/19 06:41 MPV 9.9 fL (8.0-11.0) 02/27/19 06:41 Immature Gran % 0.0 02/27/19 06:41 Neutrophils % 77.0 02/27/19 06:41 Lymphocytes % 15.0 02/27/19 06:41 Monocytes % 6.0 02/27/19 06:41 Eosinophils % 1.0 02/27/19 06:41 Basophils % 1.0 02/27/19 06:41 Absolute Neutrophils 6.16 k/cumm (1.2-6.7) 02/27/19 06:41 Absolute Lymphocytes 1.20 k/cumm (1.2-3.4) 02/27/19 06:41 Absolute Monocytes 0.48 k/cumm (0.11-0.7) 02/27/19 06:41 Absolute Eosinophils 0.08 k/cumm (0.0-0.7) 02/27/19 06:41 Absolute Basophils 0.08 k/cumm (0.0-0.2) 02/27/19 06:41 Differential Comment Manual differential 02/27/19 06:41 RBC Morphology See below 02/27/19 06:41 Polychromasia Present 02/27/19 06:41 Sodium 128 mmol/L (136-145) L 02/27/19 06:41 Potassium 3.9 mmol/L (3.5-5.1) 02/27/19 06:41 Chloride 94 mmol/L (98-107) L 02/27/19 06:41 Carbon Dioxide 22.7 mmol/L (21.0-32.0) 02/27/19 06:41 Anion Gap 11.3 mmol/L (3-11) H 02/27/19 06:41 BUN 8 mg/dL (7-18) 02/27/19 06:41 Creatinine 0.64 mg/dL (0.55-1.02) 02/27/19 06:41 Estimated GFR/1.73 m2 >= 60.00 (mL/min/1.73m2) 02/27/19 06:41 Glucose 85 mg/dL (70-100) 02/27/19 06:41 Calcium 8.0 mg/dL (8.5-10.1) L 02/27/19 06:41
[2019-02-28 11:15] VITALS: BP 113/73; PULSE 98; RESP 16; TEMP 36.8; O2SAT 99
--- NOTE | 2019-02-28 12:14 | PHARADMIT ---
Admission Pharmacy Clinical Review Laparoscopic Colectomy Code Status Full Code Current Weight Wgt-54 kg Renally Cleared and Narrow Therapeutic Index Meds CrCl~ 55.72 mL/min Meds-OK QTc Value / Action Taken none currrent BP Control, Fever BP- 113/73 Tmax-37.1C Electrolytes reviewed Na- 128 K+3.9 DVT Prophylaxis ASA, SCDs Opiate Usage / Scheduled Bowel Regimen Ordered Yes No post-op Plt/SCr for Heparin / Enoxaparin Plts-245 SCr-0.64 INR for Warfarin na H/H stable, WBC/Bands H&H- 32.3 WBC-8.09 Antibiotic appropriateness [id number] Cultures and Sensitivities none Surgical ABX d/c within 24 hr na DM control / Insulin Dosing BG- 85 Heart Failure (Check EF%) (MIKA's, B-Block, Diuretics) None IV to PO Switch No Home Meds Reviewed Yes Home Meds Not Ordered Flagyl, Neomycin Dulcolax, Miralax, Comments
--- NOTE | 2019-02-28 12:31 | W.PM.PROGNOT ---
Date of Service Date of service: 02/28/19 Time of Service: 12:31 Assessment and Plan Assessment and plan (1) S/P laparoscopic colectomy: Status: Acute Assessment and plan: She is recovering well Soft diet Saline lock IVF Report given to Dr. Cullen who will see the patient through discharge Kwong should stay for one week postop Subjective Subjective Interval history since last seen: Feeling better than yesterday Nausea has resolved, tolerating clears. Passing flatus Exam Narrative Exam Narrative: Alert Abdomen soft, nondistended Dressings dry Objective Objective Clinical Data: Vital Signs Temperature 98.2 F 02/28/19 11:15 Temperature Source Tympanic 02/28/19 11:15 Pulse 98 H 02/28/19 11:15 Pulse Rhythm Regular 02/28/19 03:50 Respiratory Rate 16 02/28/19 11:15 Respiratory Effort Non-Labored 02/28/19 03:50 Respiratory Depth Normal 02/28/19 03:50 Respiratory Pattern Normal 02/28/19 03:50 Blood Pressure 113/73 02/28/19 11:15 Pulse Oximetry 99 02/28/19 11:15 Respiratory End-tidal CO2 34 02/26/19 15:27 Oxygen Delivery Method Room Air 02/28/19 11:15 Oxygen Flow Rate 0 02/28/19 11:15 Pain Level 7 02/28/19 11:15 Intake & Output 02/27/19 02/28/19 02/28/19 23:59 11:59 23:59 Intake Total 2701.25 / 3653.75 590 / 590 Output Total 1350 / 2675 4600 / 4600 Balance 1351.25 / 978.75 -4010 / -4010 Intake: IV 2181.25 / 3033.75 10 / 10 Oral 520 / 620 580 / 580 Output: Urine 1350 / 2675 4600 / 4600 Other: Urine Color Straw Pale Yellow Urine Appearance Clear Clear Stool Size Smear Laboratory Results WBC 8.00 k/cumm (4.4-10.8) 02/27/19 06:41 RBC 3.79 m/cumm (4.00-5.20) L 02/27/19 06:41 Hgb 10.6 g/dL (12.0-15.5) L 02/27/19 06:41 Hct 32.3 % (36.0-46.0) L 02/27/19 06:41 MCV 85.2 fL (80-95) 02/27/19 06:41 MCH 28.0 pg (27.0-33.0) 02/27/19 06:41 MCHC 32.8 g/dL (32.0-36.0) 02/27/19 06:41 RDW 14.1 % (11.7-14.6) 02/27/19 06:41 Plt Count 245 x1000/uL (130-400) 02/27/19 06:41 MPV 9.9 fL (8.0-11.0) 02/27/19 06:41 Immature Gran % 0.0 02/27/19 06:41 Neutrophils % 77.0 02/27/19 06:41 Lymphocytes % 15.0 02/27/19 06:41 Monocytes % 6.0 02/27/19 06:41 Eosinophils % 1.0 02/27/19 06:41 Basophils % 1.0 02/27/19 06:41 Absolute Neutrophils 6.16 k/cumm (1.2-6.7) 02/27/19 06:41 Absolute Lymphocytes 1.20 k/cumm (1.2-3.4) 02/27/19 06:41 Absolute Monocytes 0.48 k/cumm (0.11-0.7) 02/27/19 06:41 Absolute Eosinophils 0.08 k/cumm (0.0-0.7) 02/27/19 06:41 Absolute Basophils 0.08 k/cumm (0.0-0.2) 02/27/19 06:41 Differential Comment Manual differential 02/27/19 06:41 RBC Morphology See below 02/27/19 06:41 Polychromasia Present 02/27/19 06:41 Sodium 128 mmol/L (136-145) L 02/27/19 06:41 Potassium 3.9 mmol/L (3.5-5.1) 02/27/19 06:41 Chloride 94 mmol/L (98-107) L 02/27/19 06:41 Carbon Dioxide 22.7 mmol/L (21.0-32.0) 02/27/19 06:41 Anion Gap 11.3 mmol/L (3-11) H 02/27/19 06:41 BUN 8 mg/dL (7-18) 02/27/19 06:41 Creatinine 0.64 mg/dL (0.55-1.02) 02/27/19 06:41 Estimated GFR/1.73 m2 >= 60.00 (mL/min/1.73m2) 02/27/19 06:41 Glucose 85 mg/dL (70-100) 02/27/19 06:41 Calcium 8.0 mg/dL (8.5-10.1) L 02/27/19 06:41
[2019-02-28] MEDS: Normal Saline 1,000 ML 75 ML IV (12:57)
[2019-02-28 16:31] VITALS: BP 147/87; PULSE 99; RESP 18; TEMP 37.1; O2SAT 94
[2019-02-28] MEDS: Ketorolac 30 MG/ML VIAL IVP (16:36)
--- NOTE | 2019-02-28 17:26 | PDOC.CMPRO ---
- If Service Date Differs Date of service: 02/28/19 Time of Service: 17:26 Care Management Progress Note S/O: Jennie was sitting up in her bed when CM met with her. She was pleasant and engaged in conversation. She said that she had moderate pain, but that it was being well controlled. She stated that she didn't have any concerns about going home, and that she was looking forward to it so she can be in her own bed. She reported that her diet was being advanced to soft foods, which she was happy about. CM asked about her plan of care, which she stated was to return home when medically ready. She does not need any additional services at home. CM will continue to follow. A: Jennie is a 59 year old Female admitted for laparoscopic sigmoid resection on 02/26/2019. P: CM anticipates that Jennie will return home with no additional services when medically ready. She will be transported home via private vehicle by her . CM will continue to follow and support discharge planning.
[2019-02-28] MEDS: ALPRAZolam 0.5 MG TAB 1 MG PO (21:10)
[2019-02-28] MEDS: Montelukast 10 MG TAB PO (21:10)
[2019-02-28] MEDS: Atorvastatin 20 MG TAB PO (21:11)
[2019-03-01] MEDS: Normal Saline 1,000 ML 75 ML IV (00:52)
[2019-03-01 07:30] VITALS: BP 153/99; PULSE 83; RESP 18; TEMP 36.7; O2SAT 95
[2019-03-01] MEDS: Omeprazole 20 MG CAPCR PO (07:55)
[2019-03-01] MEDS: Aspirin 81 MG CHEW PO (07:55)
[2019-03-01] MEDS: Ketorolac 30 MG/ML VIAL IVP (07:56)
[2019-03-01] MEDS: Normal Saline Flush 10 ML SYR IVP (07:56)
--- NOTE | 2019-03-01 10:35 | W.PM.PROGNOT ---
Documented by User: KATY Sotelo 03/01/19 10:37 Date of Service Date of service: 03/01/19 Time of Service: 08:00 Assessment and Plan Assessment and plan (1) S/P laparoscopic colectomy: Status: Acute Assessment and plan: DIET- Soft diet, which is going well. Denies nausea or vomiting. PAIN- Well controlled overnight with Ketoralac ACTIVITY- Ambulating in the luo throughout the day. - Kwong in place. Kwong should stay for one week postop Subjective Subjective Interval history since last seen: I am having discomfort in my stomach. She points to her LLQ. She reports she is tolerating a soft diet. (+) Flatus Exam Const General: cooperative and comfortable Orientation: alert and oriented x3 Resp Effort & Inspection: normal respiratory effort, no audible wheezes and no cough GI Inspection: normal to inspection Palpation: soft, no guarding and tender in the LLQ Auscultation: normal bowel sounds Objective Objective Clinical Data: Vital Signs Temperature 36.7 C 03/01/19 07:30 Temperature Source Tympanic 03/01/19 07:30 Pulse 83 03/01/19 07:30 Pulse Rhythm Regular 03/01/19 03:21 Respiratory Rate 18 03/01/19 07:30 Respiratory Effort Non-Labored 03/01/19 03:21 Respiratory Depth Normal 03/01/19 03:21 Respiratory Pattern Normal 03/01/19 03:21 Blood Pressure 153/99 H 03/01/19 07:30 Pulse Oximetry 95 03/01/19 07:30 Respiratory End-tidal CO2 34 02/26/19 15:27 Oxygen Delivery Method Room Air 03/01/19 07:30 Oxygen Flow Rate 0 03/01/19 07:30 Pain Level 7 03/01/19 07:56 Comment 03/01/19 07:30 Intake & Output 02/28/19 03/01/19 03/01/19 18:59 06:59 18:59 Intake Total 2060 / 2953.75 893.75 / 2953.75 240 / 240 Output Total 2400 / 4850 2450 / 4850 Balance -340 / -1896.25 -1556.25 / -1896.25 240 / 240 Intake: IV 1000 / 1893.75 893.75 / 1893.75 Oral 1060 / 1060 240 / 240 Output: Urine 2400 / 4850 2450 / 4850 Other: Urine Color Pale Straw Yellow Urine Appearance Clear Clear Comment education given r/t to home care of catheter Stool Size Smear Stool Characteristics Liquid Laboratory Results WBC 8.00 k/cumm (4.4-10.8) 02/27/19 06:41 RBC 3.79 m/cumm (4.00-5.20) L 02/27/19 06:41 Hgb 10.6 g/dL (12.0-15.5) L 02/27/19 06:41 Hct 32.3 % (36.0-46.0) L 02/27/19 06:41 MCV 85.2 fL (80-95) 02/27/19 06:41 MCH 28.0 pg (27.0-33.0) 02/27/19 06:41 MCHC 32.8 g/dL (32.0-36.0) 02/27/19 06:41 RDW 14.1 % (11.7-14.6) 02/27/19 06:41 Plt Count 245 x1000/uL (130-400) 02/27/19 06:41 MPV 9.9 fL (8.0-11.0) 02/27/19 06:41 Immature Gran % 0.0 02/27/19 06:41 Neutrophils % 77.0 02/27/19 06:41 Lymphocytes % 15.0 02/27/19 06:41 Monocytes % 6.0 02/27/19 06:41 Eosinophils % 1.0 02/27/19 06:41 Basophils % 1.0 02/27/19 06:41 Absolute Neutrophils 6.16 k/cumm (1.2-6.7) 02/27/19 06:41 Absolute Lymphocytes 1.20 k/cumm (1.2-3.4) 02/27/19 06:41 Absolute Monocytes 0.48 k/cumm (0.11-0.7) 02/27/19 06:41 Absolute Eosinophils 0.08 k/cumm (0.0-0.7) 02/27/19 06:41 Absolute Basophils 0.08 k/cumm (0.0-0.2) 02/27/19 06:41 Differential Comment Manual differential 02/27/19 06:41 RBC Morphology See below 02/27/19 06:41 Polychromasia Present 02/27/19 06:41 Sodium 128 mmol/L (136-145) L 02/27/19 06:41 Potassium 3.9 mmol/L (3.5-5.1) 02/27/19 06:41 Chloride 94 mmol/L (98-107) L 02/27/19 06:41 Carbon Dioxide 22.7 mmol/L (21.0-32.0) 02/27/19 06:41 Anion Gap 11.3 mmol/L (3-11) H 02/27/19 06:41 BUN 8 mg/dL (7-18) 02/27/19 06:41 Creatinine 0.64 mg/dL (0.55-1.02) 02/27/19 06:41 Estimated GFR/1.73 m2 >= 60.00 (mL/min/1.73m2) 02/27/19 06:41 Glucose 85 mg/dL (70-100) 02/27/19 06:41 Calcium 8.0 mg/dL (8.5-10.1) L 02/27/19 06:41 Documented by User: Haydee Cullen DO 03/01/19 15:43 Assessment and Plan Assessment and plan (1) Diverticulitis large intestine: Status: Acute Qualifiers: Diverticulitis bleeding: without bleeding Diverticulitis complication: with perforation and abscess Qualified Code(s): K57.20 - Diverticulitis of large intestine with perforation and abscess without bleeding (2) Colovesical fistula: Status: Acute Assessment and plan: pt seen and examined. agree w/ above. pt did have a small BM today. no blood. It was somewhat irregular and occurred unexpectedly- assured her this was nl in the postOp period, and after 4-6 wks her bowels would return to normal for her. She is up walking. She tolerated regular breakfast. She is only using toradol for pain. I d/w her what she could expect at home, recovery time, diet, wound care, activity and warning signs. See d/c instructons Will do ultram 50mg #10 and ibuprofen 600mg po 6hrs. She will F/u w/ Dr. Kohli in office on 03/11. She will F/u in [facility] 03/07 for catheter removal
--- NOTE | 2019-03-01 12:43 | DSE_ITS ---
Date of service: 03/01/19 Time of Service: 12:43 DS: Diagnosis Discharge Diagnosis (1) S/P laparoscopic colectomy: Status: Acute Discharge Plan Discharge Details Reason For Visit: SIGMOID RESECTION Admit Date/Time: 02/26/19 07:06 Admit Provider: Carissa Kohli Attending Provider: Carissa Kohli Primary Care Provider: Chely Zhang Home Meds and New Rx's Prescriptions: New ibuprofen 600 mg tablet 600 mg PO Q6H PRN (Reason: pain) Qty: 60 RF: 6 tramadol 50 mg tablet 50 mg PO Q4H PRN (Reason: pain) Qty: 10 RF: 0 Continued atorvastatin [Lipitor] 20 mg Tablet 20 mg PO HS RF: 0 alprazolam 1 mg Tablet 1 mg PO HS RF: 0 montelukast [Singulair] 10 mg Tablet 10 mg PO HS RF: 0 albuterol sulfate 90 mcg/actuation Hfa Aerosol Inhaler 1 puff INHALATION Q6H PRNRF: 0 Discontinued polyethylene glycol 3350 17 gram/dose powder 238 g PO ONCE Qty: 238 RF: 0 bisacodyl 5 mg tablet,delayed release (DR/EC) 5 mg PO ONCE Qty: 8 RF: 0 neomycin 500 mg tablet 500 mg PO .COMPLEX Qty: 8 RF: 0 metronidazole [Flagyl] 500 mg tablet 500 mg PO .COMPLEX Qty: 8 RF: 0 aspirin 81 mg Tablet,Chewable 81 mg PO DAILY RF: 0 Discharge Instructions Instructions: Low Fiber Diet (DC), Low Fiber Diet (GEN), Colectomy (GEN) Additional Instructions: Keep an ice bag on the incision. 20 minutes on and 20 minutes off. Ice keeps the swelling down and swelling causes pain. Make sure you wrap the ice pack in a towel and don't apply directly to the skin. -No driving x1 week or of you are taking pain medications. -If you have andrea or sutures in place, they will be removed at your clinic appointment in 7-10 days. -Do Not remove any steri tapes (white tapes) that cover the incision. -Follow-up with in office 03/07 9:15. check and jacobo removal. 03/11 Dr kohli 10:00 am -pain meds are very constipating: if you do not move your bowels daily take a dose of OTC milk of magnesia -It is ok to shower. No bathe, soaking, swimming or hot tubs -Keep wound clean and dry. Wash incision with soap and water daily. Pat dry, don't rub. -If you do not have steri-tapes on your incision, than keep the wound covered with a gauze and antibacterial ointment. -Protein supplements daily. You may find that your appetite is smaller. Eat 3-6 small meals throughout the day. It is important to drink lots of water after surgery, 6-10 glasses a day. -If you were given an incentive spirometry breathing watch assembly inspector', continue to do this 10x/hour while awake. -We do want you up walking, at least 5-6 times per day. This is very important to prevent pneumonia and blood clots. You can climb stairs, take them slowly. -No lifting over 5 pounds. This is very important to avoid developing a hernia in your incision. -You may find that you are very tired after surgery- this is normal. -please do not smoke for a minimum of 72 hours after surgery. Stand Alone Forms: Nursing Discharge Form Referrals: Debbie Dubon PA [[facility]] - 03/07/19 9:15 am (Appointment to take out the jacobo) Carissa Kohli MD [ [facility] STAFF PHYSICIAN] - 03/11/19 10:00 am Activity:: see above Activity:: see above Equipment/Supplies:: please do jacobo care teaching Diet:: low fiber Discharge Data Discharge Date/Time-TO BE ENTERED AT DEPARTURE: 03/01/19 14:40 DS: Summary Status at Discharge Functional status at discharge: independent ambulation Overall status at discharge: patient is back to baseline Mental Status: mental status grossly normal Speech and Movement: speech and movement normal Mood: congruent mood Affect: normal affect Exam Const General: cooperative, healthy appearing, comfortable, no acute distress, well developed and well groomed Nutritional Appearance: average body habitus and well nourished Orientation: alert, awake and oriented x3 HENMT Head: normal to inspection, normocephalic and atraumatic Ears: hearing grossly normal bilaterally and external ears normal General nose exam: external nose normal Face and sinus: normal facial exam and sinuses nontender Mouth: oral mucosae normal, lip normal, tongue normal and moist mucous membranes Teeth and gingiva: dentition normal Eyes General: appearance normal, both eyes and all related structures Conjunctivae: conjunctivae normal Sclera: sclerae normal Pupils: PERRL Neck Neck: normal visual inspection and full ROM Chest Chest: normal inspection of the chest Resp Effort & Inspection: normal respiratory effort, able to speak in complete sentences, no cough, no nasal flaring, not tachypneic and no use of accessory muscles Auscultation: clear to auscultation bilaterally, no rales, no rhonchi and no wheezes Cardio Jugular venous pressure: no JVD Rate: regular rate Rhythm: regular rhythm GI Inspection: normal to inspection, no edema, non-distended and incision (incision c/d/i. min bruissing. mild subcutaneous swelling on right side. ) Palpation: soft, no masses, nontender and No ascites Auscultation: normal bowel sounds Skin General skin exam: no rashes or lesions noted Trauma: no lacerations or abrasions Neuro General: alert, oriented x3, oriented, gait normal, moves all extremities, no focal motor deficits and CN's II-XI intact bilaterally Cognition: normal cognition Speech: speech normal Gait: normal gait Motor: muscle tone normal throughout Extrem General: normal to inspection, full ROM and no clubbing, cyanosis or edema Psych Appearance: grossly normal and well kempt Mental Status: mental status grossly normal Speech and Movement: speech and movement normal Mood: congruent mood Affect: normal affect DS: Data Vitals/I&O Vitals and I&O: Vital Signs Temperature 36.7 C 03/01/19 07:30 Temperature Source Tympanic 03/01/19 07:30 Pulse 83 03/01/19 07:30 Pulse Rhythm Regular 03/01/19 03:21 Respiratory Rate 18 03/01/19 07:30 Respiratory Effort Non-Labored 03/01/19 03:21 Respiratory Depth Normal 03/01/19 03:21 Respiratory Pattern Normal 03/01/19 03:21 Blood Pressure 153/99 H 03/01/19 07:30 Pulse Oximetry 95 03/01/19 07:30 Respiratory End-tidal CO2 34 02/26/19 15:27 Oxygen Delivery Method Room Air 03/01/19 07:30 Oxygen Flow Rate 0 03/01/19 07:30 Pain Level 7 03/01/19 07:56 Comment 03/01/19 07:30 Intake & Output 02/28/19 03/01/19 03/01/19 23:59 11:59 23:59 Intake Total 1880 / 2470 1133.75 / 1133.75 Output Total 2600 / 7850 2500 / 2500 Balance -720 / -5380 -1366.25 / -1366.25 Intake: IV 1000 / 1010 893.75 / 893.75 Oral 880 / 1460 240 / 240 Output: Urine 2600 / 7850 2500 / 2500 Other: Urine Color Straw Pale Yellow Urine Appearance Clear Clear Stool Size Smear Stool Characteristics [facility] Medical History Anxiety (Chronic) Asthma (Inactive) Fibromyalgia (Acute) History of Lyme disease (Acute) Chronic lyme disease per patient History of pilonidal cyst (Chronic) Hypercholesteremia (Acute) Surgical History H/O hysterectomy for benign disease (Acute) History of appendectomy (Chronic) History of section (Chronic) History of ovarian cystectomy (Acute) prior to hysterectomy per patient History of tonsillectomy (Chronic) Family History Other Cancer Social History Smoking/Tobacco Use Status: Former Tobacco Use Alcohol Intake: never Drug use: Never Substance use type: does not use Do you feel safe in your relationship?: Yes
--- NOTE | 2019-03-01 17:20 | PDOC.CMDIS ---
- If Service Date Differs Date of service: 03/01/19 Time of Service: 17:21 LACE Index Scoring Tool - Questions: Length of Stay (in days): 3 Acuity (Admit via E.D.?): No E.D. Visits: 3 - Answers: Total Score: 6 Risk of Readmission: Low Risk Care Management Discharge Reason for Hospitalization: sigmoid diverticulitis with colovesical fistula Discharge Plan: Jennie will be discharged home with no new services. She will follow up with her surgeon and discharge plan of [facility]. Jennie will transport via private vehicle with family. Patient/Family Education Needs: Discharge plan, limitations, follow up plan, Ask Me Three.
== END 2019-03-01 14:40 | disposition home or self-care (01) | DRG 330 ==
LOC: PDS 14:54 → MS 15:29
PROVIDERS: Urology; Admitting Provider Surgery; PCP Nurse Practitioner; Visit Provider Surgery
PROC: 0DTN4ZZ Resection of Sigmoid Colon, Percutaneous Endoscopic Approach (ICD-10-PCS; CPT 44204; principal; 2019-02-26 09:00)
PROC: 0WHR8YZ Insertion of Other Device into Genitourinary Tract, Via Natural or Artificial Opening Endoscopic (ICD-10-PCS; CPT 52332; 2019-02-26 09:00)
DX: K57.32 Diverticulitis of large intestine without perforation or abscess without bleeding (principal); N32.1 Vesicointestinal fistula; G89.18 Other acute postprocedural pain; K66.0 Peritoneal adhesions (postprocedural) (postinfection); E78.00 Pure hypercholesterolemia, unspecified; F41.9 Anxiety disorder, unspecified; J45.909 Unspecified asthma, uncomplicated
CPT/HCPCS: 44204; 52332; 36415; 76942; 80048; 99239; NC; 85025; 88307; J0690; J1100; J1790; J1885; J2001; J2250; J2405; J3010

== ENCOUNTER 2019-03-27 12:11 | Outpatient (REF) | payer BC, SELFPAY | END 2019-03-27 12:31 | LOC: NCHCN 12:11 | PROVIDERS: PCP Nurse Practitioner Psychiatric/Mental Health; Visit Provider Nurse Practitioner Psychiatric/Mental Health | DX: R82.90 Unspecified abnormal findings in urine (principal) | CPT/HCPCS: 87086 ==

== ENCOUNTER 2019-06-25 21:51 | Outpatient (REF) | payer BC, SELFPAY | END 2019-06-25 22:11 | LOC: NCHCN 21:51 | PROVIDERS: PCP Nurse Practitioner Psychiatric/Mental Health; Visit Provider Nurse Practitioner | DX: N39.0 Urinary tract infection, site not specified (principal) | CPT/HCPCS: 87086 ==

== ENCOUNTER 2020-03-17 14:19 | Outpatient (REF) | payer BC, SELFPAY ==
--- NOTE | 2020-03-17 10:00 | PAPFT_PTH ---
PATIENT: Jennie Pedraza LOC: [facility]#:[id number] AGE/SX: 60/F ROOM: RE03/17/[address]: Chely Zhang : 1960 BED: DIS: 03/17/2020 SPEC #: [id number] RECD: 03/18/20 12:57 STATUS: HEATHER REQ #: [id number] LILIANA: 03/17/20 10:[address]: Chely Zhang DEPT: [facility] Cytology RECD BY: Lisa Perez ENTERED: 03/18/20 12:57 SP TYPE: PAPFT OTHR DR: Blanca Garcia Tissues: 1 - CX/ENDOCX FOR PAP SMEARS Procedures: PAP THIN PREP/UVM Screening HPV DNA PROBE Comments: [id number]
[2020-03-17 18:57] LABS: ALT 27 U/L (14-59); AST 22 U/L (15-37); Albumin 4.3 g/dL (3.4-5.0); Alkaline Phosphatase 146 U/L (46-116); Anion Gap 8.8 mmol/L (3-11); BUN 7 mg/dL (7-18); Bilirubin, Total 0.4 mg/dL (0.2-1.0); CO2 26.2 mmol/L (21.0-32.0); CREATININE 0.74 mg/dL (0.55-1.02); Calculated LDL 90 mg/dL (<100); Chloride 98 mmol/L (98-107); Cholesterol 185 mg/dL (<200); Glucose 85 mg/dL (74-106); HDL Cholesterol 84 mg/dL (40-60); Potassium 4.4 mmol/L (3.5-5.1); Sodium 133 mmol/L (136-145); Total Protein 7.2 g/dL (6.4-8.2); Triglyceride 57 mg/dL (<150)
== END 2020-03-17 14:39 ==
LOC: NCHCN 14:19
PROVIDERS: PCP Nurse Practitioner Psychiatric/Mental Health; Visit Provider Nurse Practitioner
DX: Z00.00 Encounter for general adult medical examination without abnormal findings (principal); Z13.228 Encounter for screening for other metabolic disorders; Z13.220 Encounter for screening for lipoid disorders; Z12.4 Encounter for screening for malignant neoplasm of cervix; Z11.51 Encounter for screening for human papillomavirus (HPV)
CPT/HCPCS: 80053; 80061; 88142; 87624

== ENCOUNTER 2020-03-27 04:46 | Outpatient (CLI) | payer BC, SELFPAY ==
--- NOTE | 2020-03-27 15:43 | DI.MAMMO_ITS ---
EXAM: MAMMO SCREENING CLINICAL HISTORY: SCREENING, Z12.39 TECHNIQUE: Mammograms were interpreted according to the usual protocol including computer analysis w [employer] CAD system, tomosynthesis and C-view imaging. COMPARISON: No exams were available for comparison FINDINGS: The breasts are composed of scattered fibroglandular densities, Breast Density category B. No suspicious masses or suspicious microcalcifications are seen. No skin thickening or abnormal axillary lymph nodes are seen. There has been no significant change from prior exams. IMPRESSION: BI-RADS Category 1, Negative mammogram Yearly screening mammography is recommended. Breast Density - Category B, scattered fibroglandular densities. A negative radiographic report should not delay biopsy if a dominant or clinically suspicious mass is present. Up to ten percent of cancers are not identified on mammography. A negative report may reinforce clinical impression. Adenosis and dense breasts may obscure an underlying neoplasm. False positive reports average 6 to 10%. Patient will receive a letter notifying them of these results.
== END 2020-03-27 05:06 ==
PROVIDERS: PCP Nurse Practitioner; Visit Provider Nurse Practitioner
DX: Z12.31 Encounter for screening mammogram for malignant neoplasm of breast (principal)
CPT/HCPCS: 77063; 77067

== ENCOUNTER 2020-06-16 14:18 | Emergency (ER) | payer BC, SELFPAY ==
[2020-06-16] VITALS (24 sets, daily range): BP systolic 152–171; BP diastolic 76–109; PULSE 67–84; RESP 12–54; TEMP 36.5–36.7; O2SAT 94–100
--- NOTE | 2020-06-16 14:15 | RT.EKG_ITS ---
APPROVED REPORT Exam: Resting ECG Patient Location: E HR:71 bpm ECG Measurements Heart Rate 71 AXIS OH 137 P 44 QRSd 99 QRS -39 QT 398 T 40 QTc 432 Conclusion Sinus rhythm...normal P axis, V-rate 60- 99 Probable left atrial enlargement...P >50mS, <-0.10mV V1 Left axis deviation...QRS axis (-30,-90) I have reviewed and interpreted ECG and agree with software generated interpretation.
--- NOTE | 2020-06-16 14:34 | ED.GENADUL_ITS ---
Discharge Plan Disposition Patient Disposition: HOME Condition: Good Discharge Details Clinical Impression: Heart palpitations, Anxiety Primary Care Provider: Chely Zhang ED Provider: Le Zazueta Home Meds and New Rx's Prescriptions: Continued trazodone 50 mg tablet 50 mg PO DAILY RF: 0 atorvastatin [Lipitor] 20 mg Tablet 20 mg PO HS RF: 0 alprazolam 1 mg Tablet 1 mg PO HS RF: 0 montelukast [Singulair] 10 mg Tablet 10 mg PO HS RF: 0 gabapentin 100 mg capsule 100 mg PO .QHS RF: 0 oxybutynin chloride 5 mg tablet 5 mg PO BID RF: 0 Advair HFA 115-21 mcg/actuation HFA aerosol inhaler INHALATION BID RF: 0 albuterol sulfate 90 mcg/actuation Hfa Aerosol Inhaler 1 puff INHALATION Q6H PRNRF: 0 ibuprofen 600 mg tablet 600 mg PO Q6H PRN (Reason: pain) Qty: 60 RF: 6 Discharge Instructions Instructions: Heart Palpitations (ED), Anxiety (ED) Additional Instructions: Your labs and imaging are reassuring here today. Please encourage relaxation techniques to reduce your anxiety. A conveyor monitor was applied, please care for this as directed by respiratory therapy. Please monitor when you are having your palpitations and what may be causing these symptoms. Please call your primary care tomorrow to schedule a follow-up appointment within the next week for reevaluation and discuss anxiety treatment further. If you develop any new or worsening symptoms please seek care urgently once again. Referrals: Chely Zhang [Primary Care Provider] - Discharge Data Discharge Date/Time-TO BE ENTERED AT DEPARTURE: 06/16/20 20:12 Medical Decision Making <KATY Quinteros - Last Filed: 06/17/20 17:06> 60-year-old female with past medical history of anxiety, panic attacks, fibromyalgia, asthma, presenting to the ER for what she believes to be a severe and prolonged anxiety attack for the past 3 days. Associated with her increased anxiety is chest palpitations, irregular fast heartbeat, mild global headache sl ightly worse on the right, and what she describes as mild hyperventilating or shortness of breath. She is unaware of any obvious trigger but does note that she has had increased stress and anxiety over the past few months. Denies any recent illness or trauma. Denies any fever, chest pain, pain or swelling in her legs. She does appear to be slightly anxious. On the conveyor monitor her heart rate is in the 70s and appears to be a sinus rhythm. I will initiate a cardiac- palpitation work-up, give 1 mg p.o. Ativan and 1 g p.o. Tylenol. EKG confirms that she is in a sinus rhythm. Based upon her presentation, low suspicion for ACS. Very well may be palpitations, arrhythmia, anxiety-a panic attack, will also obtain D-dimer given her subjective shortness of breath. Laboratory values thus far unremarkable for obvious emergent process. Still awaiting D-dimer. At 1540, patient states that her headache has resolved completely. She feels as though her anxiety is unchanged. Patient care signed out to KATY Zazueta D-dimer, chest x-ray, urinalysis. Patient agreeable to repeat troponin and EKG in 3 hours. If negative and discharged home we discussed Holter monitor. Medical Records Medical records reviewed: Yes I reviewed the patient's medical records. ECG Data Attestation: I personally reviewed and interpreted this ECG (s) as follows: Interpretation: Please see official report by Dr. Manjarrez. Sinus rhythm. Ve ntricular rate of 71. No STEMI. <KATY Gan - Last Filed: 06/16/20 22:14> Patient is myself and Oliverio Duong PA-C. Please see his initial note regarding presentation, history and exam. In brief, patient is a pleasant 60-year-old female who presents with chief complaint of palpitation and anxiety x3 days. Patient reports anxiety at baseline but states that this is been increased recently. At the time that I assumed care, patient has been asymptomatic and is resting comfortably. Patient was given anxiety lytic as well as Tylenol at her time of her presentation. At the time of transition of care, D-dimer was pending as well as repeat troponin. D-dimer is within normal limits. Urinalysis without significant abnormality. Repeat troponin is less than 0.05. Discussed these findings with the patient. She continues to be asymptomatic. Plan to start the patient with a Holter monitor to continue to evaluate for the cause of her palpitations symptoms. We also discussed anxiety lytic techniques. I advised that she follow-up with her primary care tomorrow to discuss her anxiety further. The patient had initially been reporting some shortness of breath associated with the palpitations, Covid testing was sent. She will quarantine until these are back. She and I discussed return precautions. She will contact her primary care to schedule prompt follow-up. All of her questions and concerns were addressed and she is agreement this plan. HPI <KATY Quinteros - Last Filed: 06/17/20 17:06> General Mode of arrival: ambulatory . Date/Time Provider Initiated Documentation: 06/16/20 14:30 . Limitations to Documentation: no limitations . Information obtained by: patient . HPI Narrative: This is a 60-year-old female, past medical history that includes anxiety, panic attacks, hyperlipidemia, asthma, fibromyalgia, presenting to the ER for what she describes as the worst and longest panic attack I have ever had. She states that she has had increasing duration and length of panic attacks over the past several months, no obvious trigger. She states that when she feels anxious, she feels short of breath, palpitations, like her heart is pounding. She is concerned about A. fib because her father was diagnosed with A. fib when he had a similar presentation. She denies recent illness, trauma, stressors. She denies visual changes, neck pain, chest pain, cough, abdominal pain, nausea or vomiting, numbness, tingling, weakness. She reports a 3 out of 10 global headache, slightly worse on the right side. She has not taken any medication [id number] for her headache. She does take alprazolam 0.5 mg at bedtime. She reports that this helps greatly but she does not take it during the day because she does not want to be sleepy. Related Data Home Medications Medication Instructions Recorded Confirmed alprazolam 1 mg PO HS 05/23/18 06/16/20 atorvastatin [Lipitor] 20 mg PO HS 05/23/18 06/16/20 montelukast [Singulair] 10 mg PO HS 05/23/18 06/16/20 albuterol sulfate 1 puff INHALATION Q6H PRN 12/20/18 06/16/20 ibuprofen 600 mg PO Q6H PRN #60 tab 03/01/19 06/16/20 trazodone 50 mg tablet 50 mg PO DAILY 04/15/19 06/16/20 Advair HFA INHALATION BID 06/16/20 gabapentin 100 mg PO .QHS 06/16/20 06/16/20 oxybutynin chloride 5 mg PO BID 06/16/20 06/16/20 Previous Rx's Medication Instructions Recorded ibuprofen 600 mg PO Q6H PRN #60 tab 03/01/19 Allergies Allergy/AdvReac Type Severity Reaction Status Date / Time cat dander Allergy Intermediate Wheezing Verified 06/16/20 14:29 ciprofloxacin [From Cipro] Allergy Intermediate knee Verified 06/16/20 14:29 swelling clindamycin Allergy Unknown knee Verified 06/16/20 14:29 swelling enviromental allergies Allergy wheezing, Uncoded 06/16/20 14:29 stuffiness General Stated Complaint: Palpitatns TRISH: 2 Review of Systems <KATY Quinteros - Last Filed: 06/17/20 17:06> Constitutional Constitutional: Denies fatigue, Denies fever(s), Reports headache(s) and Denies weakness Eyes Eyes: Denies change in vision ENT Ears, Nose, Mouth, and Throat: Reports headache(s) and Denies neck pain Cardiovascular Cardiovascular: Denies chest pain, Reports irregular heart rhythm, Reports palpitations and Reports dyspnea Respiratory Respiratory: Denies cough and Reports dyspnea Gastrointestinal Gastrointestinal: Denies abdominal pain, Denies nausea and Denies vomiting Genitourinary Genitourinary: Denies dysuria Musculoskeletal Musculoskeletal: Denies back pain, Denies neck pain, Denies numbness and Denies tingling Integumentary/Breasts Skin/Breast: Denies rash Neurologic Neurologic: Reports headache(s), Denies numbness, Denies tingling and Denies weakness Psychiatric Psychiatric: Reports anxiety and Reports panic attacks Endocrine Endocrine: Denies fatigue and Reports palpitations PFSH <KATY Quinteros - Last Filed: 06/17/20 17:06> Medical History Anxiety Asthma Colovesical fistula Fibromyalgia History of Lyme disease Chronic lyme disease per patient History of pilonidal cyst Hypercholesteremia Surgical History H/O hysterectomy for benign disease History of appendectomy History of section History of ovarian cystectomy prior to hysterectomy per patient History of tonsillectomy S/P laparoscopic colectomy Dr Carissa Kohli, [facility] Family History Other Cancer Social History Smoking/Tobacco Use Status: Former Tobacco Use Smoking risk assessment performed?: Yes Alcohol Intake: never Drug use: Never Substance use type: does not use Current gender identity: female Do you feel safe in your relationship?: Yes Exam <KATY Quinteros - Last Filed: 06/17/20 17:06> Const General: cooperative, healthy appearing, comfortable, no acute distress and anxious (Slightly) Orientation: alert, awake and oriented x3 HENMT Head: normal to inspection, normocephalic and atraumatic Face and sinus: normal facial exam Mouth: moist mucous membranes Eyes General: appearance normal, both eyes and all related structures Alignment and Position: alignment normal Periorbital: periorbital findings normal Eyelids: eyelids normal Conjunctivae: conjunctivae normal Sclera: sclerae normal Cornea: corneas normal Pupils: PERRL EOM: EOM intact bilaterally Direct ophthalmoscopy: normal light reflex Neck Neck: normal visual inspection, full ROM, no meningeal signs, trachea midline and supple Resp Effort & Inspection: normal respiratory effort and able to speak in complete sentences Auscultation: clear to auscultation bilaterally Cardio Rate: regular rate Rhythm: regular rhythm GI Palpation: soft and nontender Back/Spine/Pelvis Back: No back tenderness Skin General skin exam: no rashes or lesions noted Neuro General: patient alert, patient awake, patient oriented x3, moves all ex tremities and no focal motor deficits Cranial Nerves: CN's II-XI intact bilaterally Cognition: normal cognition Speech: speech normal Gait: normal gait Motor: muscle tone normal throughout Sensory Exam: no sensory deficits noted Extrem General: normal to inspection, full ROM, capillary refill normal, no pedal edema and no calf tenderness Psych Appearance: grossly normal Mental Status: mental status grossly normal Course <KATY Quinteros - Last Filed: 06/17/20 17:06> Vital Signs Vital signs: Vital Signs Temperature 36.5 C 06/16/20 14:23 Pulse 73 06/16/20 14:23 Respiratory Rate 16 06/16/20 14:23 Blood Pressure 171/93 H 06/16/20 14:23 Pulse Oximetry 98 06/16/20 14:23 Temperature 36.5 C 06/16/20 14:23 Temperature Source Skin 06/16/20 14:23 Pulse 73 06/16/20 14:23 Respiratory Rate 16 06/16/20 14:23 Respiratory Effort Non-Labored 06/16/20 14:23 Blood Pressure 171/93 H 06/16/20 14:23 Blood Pressure Position Supine 06/16/20 14:23 Pulse Oximetry 98 06/16/20 14:23 Oxygen Delivery Method Room Air 06/16/20 14:23 Oxygen Flow Rate 0 06/16/20 14:23 Pain Level 0 06/16/20 14:23 Sign Out <KATY Quinteros - Last Filed: 06/17/20 17:06> Sign Out Data: Sign Out Comment: Palpitations, increased anxiety, hyperventilating, shortness of breath, headache x3 days. Headache resolved with Tylenol. No change with 1 mg Ativan. Initial work-up unremarkable. Awaiting a portable chest x-ray and D-dimer. Patient agreeable to awaiting a 3-hour troponin and EKG. Discussed if work-up is unremarkable and she is deemed safe for discharge, possibly setting up with Holter monitor. Last updated by Carlos Duong PA at 06/16/20 15:51
[2020-06-16] MEDS: LORazepam 1 MG TAB PO (15:02)
[2020-06-16] MEDS: Acetaminophen 500 MG TAB 1000 MG PO (15:02)
[2020-06-16] MEDS: Normal Saline 1,000 ML 150 ML IV (15:03)
[2020-06-16 15:06] LABS: Abs Immature Grans 0.02 10^3/uL (0.0-0.06); Absolute Basophil Count 0.03 10^3/uL (0.0-0.2); Absolute Eosinophil Count 0.15 10^3/uL (0.0-0.7); Absolute Lymphocyte Count 2.03 10^3/uL (1.2-3.4); Absolute Monocyte Count 0.59 10^3/uL (0.1-0.8); Absolute Neutrophil Count 3.51 10^3/uL (1.2-6.7); Basophils % 0.5; Eosinophils % 2.4; HCT 41.5 % (36.0-46.0); HGB 13.1 g/dL (11.2-15.7); Immature Grans % 0.3; Lymphocytes % 32.1; MCH 28.5 pg (27.0-33.0); MCHC 31.6 % (32.0-36.0); MCV 90.4 fL (80-95); MPV 9.6 fL (8.0-11.0); Monocytes % 9.3; Neutrophils % 55.4; Nucleated RBC 0 %; Platelet Count 316 10^3/uL (130-400); RBC 4.59 10^6/uL (3.93-5.22); RDW 13.1 % (11.7-14.6); RDW-SD 42.9 fL; WBC 6.33 10^3/uL (4.4-10.8)
[2020-06-16 15:26] LABS: PTT Activated 27.3 sec (21.0-27.5); Prothrombin Time 10.3 sec (9.3-11.0)
[2020-06-16 15:28] LABS: ALT 53 U/L (14-59); AST 27 U/L (15-37); Albumin 4.2 g/dL (3.4-5.0); Alkaline Phosphatase 187 U/L (46-116); Anion Gap 4.5 mmol/L (3-11); BUN 9 mg/dL (7-18); Bilirubin, Total 0.4 mg/dL (0.2-1.0); CO2 29.5 mmol/L (21.0-32.0); CREATININE 0.79 mg/dL (0.55-1.02); Calcium 8.9 mg/dL (8.5-10.1); Chloride 99 mmol/L (98-107); Glucose 86 mg/dL (74-106); Magnesium 2.1 mg/dL (1.8-2.4); Sodium 133 mmol/L (136-145); TSH 2.32 uIU/mL (0.36-3.74); Total Protein 7.8 g/dL (6.4-8.2)
[2020-06-16 15:35] LABS: Troponin I < 0.05 ng/mL (<0.06)
--- NOTE | 2020-06-16 15:53 | DI.RAD_ITS ---
EXAM: XR PORTABLE CHEST AP CLINICAL HISTORY: anxiety/sob TECHNIQUE: 2D digital imaging was performed. COMPARISON: No exams were available for comparison FINDINGS: MEDIASTINUM: Normal. HEART: Normal. PULMONARY VASCULATURE: Normal. LUNGS: Clear. PLEURAL SPACE: No pleural effusion or pneumothorax. BONE:Within normal limits for the patient's age. OTHER FINDINGS:Normal. IMPRESSION: No acute pulmonary findings. DATA REPOSITORY: RADIATION DOSE DELIVERED:
[2020-06-16 16:29] LABS: D-Dimer 441 ng/mlFEU (<500)
[2020-06-16 16:45] LABS: Bilirubin Negative (Negative); Blood Negative (Negative); Clarity Clear (Clear); Glucose Negative (Negative); Ketones Negative (Negative); Leukocyte Esterase Negative (Negative); Nitrite Negative (Negative); Urobilinogen 0.2 EU/dL (Up TO 0.2); pH 7.5 (5-8)
[2020-06-16 19:03] LABS: Troponin I < 0.05 ng/mL (<0.06)
[2020-06-18 14:41] LABS: COVID-19 RT-PCR UVMMC Result Negative (Negative)
--- NOTE | 2020-06-19 18:11 | NUR.NOTE ---
spoke with pt 06/19/20 at 1809 to advise of negative COVID-19 test result Nursing Note:
== END 2020-06-16 20:12 | disposition home or self-care (01) ==
PROVIDERS: Physician Assistant; Emergency Provider Physician Assistant; PCP Nurse Practitioner
DX: R00.2 Palpitations (principal); F41.0 Panic disorder [episodic paroxysmal anxiety]; R06.02 Shortness of breath; Z03.818 Encounter for observation for suspected exposure to other biological agents ruled out
CPT/HCPCS: 36415; 80053; 93005; 96360; 96361; 99285; U0003; 71045; 81003; 83735; 84443; 84484; 85025; 85379; 85610; 85730; 93010; 93225

== ENCOUNTER 2020-06-16 19:37 | Outpatient (RCR) | payer BC, SELFPAY ==
--- NOTE | 2020-06-16 19:00 | HOLTER_ITS ---
APPROVED REPORT Exam Type: HOLTER MONITOR APPLICATION Patient Location: E Conclusion This was a 48-hour Holter monitor reportedly ordered for palpitations Rhythm throughout was sinus with an average heart rate 86 bpm. Minimum was 64, maximum 148 There were very rare atrial premature beats. One isolated PVC was recorded Patient symptoms corresponded to sinus rhythm heart rate 95 on average There was no atrial fibrillation, no pauses greater than 3 seconds, no high-grade AV block
--- NOTE | 2020-06-16 19:43 | HOLTER_ITS ---
APPROVED REPORT Exam Type: HOLTER MONITOR APPLICATION Reason for Test: PALPITATIONS Patient Location: E Conclusion This was a 48-hour Holter monitor reportedly ordered for palpitations Rhythm throughout was sinus with an average heart rate 86 bpm. Minimum was 64, maximum 148 There were very rare atrial premature beats. One isolated PVC was recorded Patient symptoms corresponded to sinus rhythm heart rate 95 on average There was no atrial fibrillation, no pauses greater than 3 seconds, no high-grade AV block
== END 2020-07-12 23:59 | disposition home or self-care (01) ==
LOC: RT 19:37
PROVIDERS: PCP Nurse Practitioner; Visit Provider Physician Assistant
DX: R00.2 Palpitations (principal); I49.3 Ventricular premature depolarization
CPT/HCPCS: 93225; 93226

== ENCOUNTER 2020-08-22 21:38 | Outpatient (REF) | payer BC, SELFPAY ==
[2020-08-22 16:11] LABS: Bilirubin Negative (Negative); Blood Negative (Negative); Clarity Clear (Clear); Glucose Negative (Negative); Ketones Trace mg/dL (Negative); Leukocyte Esterase Negative (Negative); Nitrite Negative (Negative); Specific Gravity 1.025 (1.005-1.025); Urobilinogen 0.2 EU/dL (Up TO 0.2); pH 5.5 (5-8)
[2020-08-22 16:26] LABS: Bacteria Negative HPF (Negative); C & S Indicated? No; Casts Negative LPF (Negative); Crystals Negative HPF (Negative); Epithelial Cells Many HPF (Negative); Mucus Negative (Negative); Other Cells Negative (Negative); RBC Negative HPF (0-2); WBC 0-2 HPF (0-5)
== END 2020-08-22 21:39 | disposition home or self-care (01) ==
LOC: LBN 21:38
PROVIDERS: PCP Nurse Practitioner; Visit Provider Family Medicine
DX: N32.81 Overactive bladder (principal)
CPT/HCPCS: 81003; 81015

== ENCOUNTER 2020-10-30 14:07 | Emergency (ER) | payer BC, SELFPAY ==
[2020-10-30 14:17] VITALS: BP 131/101; PULSE 106; RESP 14; TEMP 36.5; O2SAT 99
[2020-10-30 14:40] LABS: Bilirubin Negative (Negative); Blood Negative (Negative); Clarity Clear (Clear); Glucose Negative (Negative); Ketones Trace mg/dL (Negative); Leukocyte Esterase Negative (Negative); Nitrite Negative (Negative); Specific Gravity 1.015 (1.005-1.025); Urobilinogen 0.2 EU/dL (Up TO 0.2)
--- NOTE | 2020-10-30 15:25 | W.ED.GENAD ---
Discharge Plan Disposition Patient Disposition: HOME Condition: Stable Discharge Details Clinical Impression: Abdominal pain Primary Care Provider: Chely Zhang ED Provider: Inocente Mckeon Home Meds and New Rx's Prescriptions: New ondansetron 4 mg tablet,disintegrating 4 mg PO Q8H PRN (Reason: nausea and vomiting) Qty: 30 RF: 0 Continued trazodone 50 mg tablet 50 mg PO DAILY RF: 0 atorvastatin [Lipitor] 20 mg Tablet 20 mg PO HS RF: 0 alprazolam 1 mg Tablet 1 mg PO HS RF: 0 montelukast [Singulair] 10 mg Tablet 10 mg PO HS RF: 0 gabapentin 100 mg capsule 100 mg PO .QHS RF: 0 oxybutynin chloride 5 mg tablet 5 mg PO BID RF: 0 Advair HFA 115-21 mcg/actuation HFA aerosol inhaler INHALATION BID RF: 0 albuterol sulfate 90 mcg/actuation Hfa Aerosol Inhaler 1 puff INHALATION Q6H PRNRF: 0 ibuprofen 600 mg tablet 600 mg PO Q6H PRN (Reason: pain) Qty: 60 RF: 6 Discharge Instructions Instructions: Abdominal Pain (ED) Additional Instructions: your blood work and cat scan did not show any concerning findings and your cat scan did not show any concerning findings as well if you feel more ill, have severe worsening pain or persistent vomit return to the emergency department follow up with your primary care provider within 1 week if pain continues Medical Decision Making 60 yo female with hx of prior diverticulitis with colectomy, hld, who comes in with left lower abdomen pain that feels similar to her prior diverticulitis. She states a week ago she started to have an upset stomach and diarrhea and then pain moved to the left lower abdomen yesterday. Has had nausea without vomit, no fevers. She has a soft nondistended abdomen and only is tender in the left lower abdomen. Suspect recurrent diveriticulitis, will obtain labs and ct imaging to further evaluate labs and imaging unremarkable and she remains stable with no new symptoms. Discussed with pt findings and after discussion will hold on antibiotics. She feels comfortable with d/c and follow up with pcp and return precautions given Differential Diagnosis Differential Diagnosis: diverticulitis, colitis, pancreatitis Medical Records Medical records reviewed: Yes I reviewed the patient's medical records. Imaging Data Radiologic Study: Attestation: I personally reviewed and interpreted this imaging study as follows: Radiologist's impression: IMPRESSION: Status post sigmoid colon resection. The anastomosis is intact. There is no evidence of diverticulitis. Lab Data Lab results reviewed: Yes I reviewed the patient's lab results. HPI General Mode of arrival: ambulatory. Date/Time Provider Initiated Documentation: 10/30/20 14:26. Limitations to Documentation: no limitations. Information obtained by: patient. History of Present Illness 60 year old F presents to the emergency department with the chief complaint of left lower abdomen pain, described as moderate, and it has been constant. No relieving factors improve symptom(s), No exacerbating factors reported . Patient notes other (nausea and diarrhea). Related Data Home Medications Medication Instructions Recorded Confirmed alprazolam 1 mg PO HS 05/23/18 06/16/20 atorvastatin [Lipitor] 20 mg PO HS 05/23/18 06/16/20 montelukast [Singulair] 10 mg PO HS 05/23/18 06/16/20 albuterol sulfate 1 puff INHALATION Q6H PRN 12/20/18 06/16/20 ibuprofen 600 mg PO Q6H PRN #60 tab 03/01/19 06/16/20 trazodone 50 mg tablet 50 mg PO DAILY 04/15/19 06/16/20 Advair HFA INHALATION BID 06/16/20 gabapentin 100 mg PO .QHS 06/16/20 06/16/20 oxybutynin chloride 5 mg PO BID 06/16/20 06/16/20 ondansetron 4 mg PO Q8H PRN #30 tab 10/30/20 Previous Rx's Medication Instructions Recorded ibuprofen 600 mg PO Q6H PRN #60 tab 03/01/19 ondansetron 4 mg PO Q8H PRN #30 tab 10/30/20 Allergies Allergy/AdvReac Type Severity Reaction Status Date / Time cat dander Allergy Intermediate Wheezing Verified 06/16/20 14:29 ciprofloxacin [From Cipro] Allergy Intermediate knee Verified 06/16/20 14:29 swelling clindamycin Allergy Unknown knee Verified 06/16/20 14:29 swelling enviromental allergies Allergy wheezing, Uncoded 06/16/20 14:29 stuffiness General Stated Complaint: Abd Prob TRISH: 3 Review of Systems All systems reviewed & are unremarkable except as noted in HPI and below Constitutional Constitutional: Denies chills, Denies fever(s) and Denies weakness Cardiovascular Cardiovascular: Denies chest pain and Denies dyspnea Respiratory Respiratory: Denies cough and Denies dyspnea Gastrointestinal Gastrointestinal: Denies vomiting Musculoskeletal Musculoskeletal: Denies joint swelling Neurologic Neurologic: Denies weakness Psychiatric Psychiatric: Denies depression [facility] Medical History Anxiety Asthma Colovesical fistula Fibromyalgia History of Lyme disease Chronic lyme disease per patient History of pilonidal cyst Hypercholesteremia Surgical History H/O hysterectomy for benign disease History of appendectomy History of section History of ovarian cystectomy prior to hysterectomy per patient History of tonsillectomy S/P laparoscopic colectomy Dr Carissa Kohli, [facility] Family History Other Cancer Social History Smoking/Tobacco Use Status: Former Tobacco Use Smoking risk assessment performed?: Yes Alcohol Intake: never Drug use: Never Substance use type: does not use Current gender identity: female Do you feel safe in your relationship?: Yes Exam Const General: no acute distress Orientation: alert HENMT Head: normal to inspection Ears: external ears normal General nose exam: external nose normal Mouth: moist mucous membranes Eyes General: appearance normal, both eyes and all related structures Neck Neck: normal visual inspection Resp Effort & Inspection: normal respiratory effort and able to speak in complete sentences Cardio Rate: regular rate GI Palpation: soft and tender Skin General skin exam: no rashes or lesions noted Neuro General: patient alert and patient oriented x3 Extrem General: normal to inspection Psych Mental Status: mental status grossly normal Course Vital Signs Vital signs: Vital Signs Temperature 36.5 C 10/30/20 14:17 Pulse 106 H 10/30/20 14:17 Respiratory Rate 14 10/30/20 14:17 Blood Pressure 131/101 H 10/30/20 14:17 Pulse Oximetry 99 10/30/20 14:17 Temperature 36.5 C 10/30/20 14:17 Temperature Source Skin 10/30/20 14:17 Pulse 106 H 10/30/20 14:17 Respiratory Rate 14 10/30/20 14:17 Blood Pressure 131/101 H 10/30/20 14:17 Blood Pressure Position Sitting 10/30/20 14:17 Pulse Oximetry 99 10/30/20 14:17 Oxygen Delivery Method Room Air 10/30/20 14:17 Oxygen Flow Rate 0 10/30/20 14:17 Pain Level 5 10/30/20 14:17 Lab/Test Results Lab/Test Results: Laboratory Tests Range/Units 10/30/20 14:30 Urine Color (Yellow) Yellow Urine Clarity (Clear) Clear Urine pH (5-8) 7.0 Ur Specific Mark Center (1.005-1.025) 1.015 Urine Protein (Negative) mg/dL Negative Urine Ketones (Negative) mg/dL Trace H Urine Blood (Negative) Negative Urine Nitrite (Negative) Negative Urine Bilirubin (Negative) Negative Urine Urobilinogen (Up TO 0.2) EU/dL 0.2 Ur Leukocyte Esterase (Negative) Negative Urine Glucose (Negative) mg/dL Negative
[2020-10-30 15:28] LABS: Abs Immature Grans 0.01 10^3/uL (0.0-0.06); Absolute Basophil Count 0.02 10^3/uL (0.0-0.2); Absolute Eosinophil Count 0.09 10^3/uL (0.0-0.7); Absolute Lymphocyte Count 1.61 10^3/uL (1.2-3.4); Absolute Monocyte Count 0.44 10^3/uL (0.1-0.8); Absolute Neutrophil Count 2.95 10^3/uL (1.2-6.7); Basophils % 0.4; Eosinophils % 1.8; HCT 42.5 % (36.0-46.0); HGB 14.2 g/dL (11.2-15.7); Immature Grans % 0.2; Lymphocytes % 31.4; MCH 28.7 pg (27.0-33.0); MCHC 33.4 % (32.0-36.0); MCV 85.9 fL (80-95); MPV 9.3 fL (8.0-11.0); Monocytes % 8.6; Neutrophils % 57.6; Nucleated RBC 0 %; Platelet Count 288 10^3/uL (130-400); RBC 4.95 10^6/uL (3.93-5.22); RDW 13.3 % (11.7-14.6); RDW-SD 41.8 fL; WBC 5.12 10^3/uL (4.4-10.8)
[2020-10-30] MEDS: Normal Saline 1,000 ML 1000 ML IV (15:30)
[2020-10-30 15:38] LABS: ALT 34 U/L (14-59); AST 25 U/L (15-37); Albumin 4.4 g/dL (3.4-5.0); Alkaline Phosphatase 124 U/L (46-116); Anion Gap 11.1 mmol/L (3-11); BUN 8 mg/dL (7-18); Bilirubin, Total 0.4 mg/dL (0.2-1.0); CO2 24.9 mmol/L (21.0-32.0); CREATININE 0.6 mg/dL (0.55-1.02); Calcium 9.2 mg/dL (8.5-10.1); Chloride 101 mmol/L (98-107); Glucose 85 mg/dL (74-106); Lipase 122 U/L (73-393); Potassium 4.3 mmol/L (3.5-5.1); Sodium 137 mmol/L (136-145)
[2020-10-30 15:41] LABS: PTT Activated 26.2 sec (21.0-27.5)
--- NOTE | 2020-10-30 16:00 | DI.CT_ITS ---
Exam(s) CT ABDOMEN PELVIS W EXAM: CT ABDOMEN PELVIS W INDICATION: left lower abdomen pain. COMPARISON: CT CT ABDOMEN PELVIS W from 12/20/2018 TECHNIQUE: FINDINGS: CT examination of the abdomen and pelvis was performed with a bolus infusion of 74 cc of Omnipaque 35 0. Images obtained through the lung bases are unremarkable. The liver is unremarkable in appearance. Gallbladder and bile ducts are CT normal. Pancreas appears normal. Spleen is unremarkable in appearance. Adrenals appear normal. The kidneys are unremarkable with no evidence of hydronephrosis, nephrolithiasis, or renal mass.. Ur inary bladder unremarkable. Abdominal aorta is of normal diameter and no major vascular abnormality is seen. No abdominal wall hernia. No abdominal or pelvic adenopathy. [employer] structures not well visualized, no gross pelvic mass. Appendix is nonvisualized but there is no specific evidence of appendicitis or diverticulitis. There is an apparent sigmoid anastomosis which appears intact. No free fluid identified in the pelvis. IMPRESSION: Negative CT examination of the abdomen and pelvis. RADIATION DOSE DELIVERED: 606.15mGy.cm Total DLP 606.15mGy.cm Total DLP RADIATION OPTIMIZATION: All CT scans at this facility use at least one of these dose optimization te chniques: automated exposure control; mA and/or kV adjustment per patient size (includes targeted exa ms where dose is matched to clinical indication); or iterative reconstruction.
[2020-10-30] MEDS: Omnipaque 350 MG/ML 100 ML BTL IJ (16:18)
[2020-10-30] MEDS: Normal Saline - Diluent 50 ML VIAL IV (16:19)
--- NOTE | 2020-10-30 16:45 | DI.VRAD_ITS ---
PROCEDURE INFORMATION: Exam: CT Abdomen And Pelvis With Contrast Exam date and time: 10/30/2020 3:17 PM Age: 60 years old Clinical indication: Localized; Left lower quadrant (llq); Patient HX: Left lower abdominal pain. TECHNIQUE: Imaging protocol: Computed tomography of the abdomen and pelvis with contrast. Radiation optimization: All CT scans at this facility use at least one of these dose optimization techniques: automated exposure control; mA and/or kV adjustment per patient size (includes targeted exams where dose is matched to clinical indication); or iterative reconstruction. Contrast material: OMNI-PAQUE 350; Contrast volume: 74 ml; Contrast route: INTRAVENOUS (IV); COMPARISON: CT ABDOMEN PELVIS W 12/20/2018 3:21 AM FINDINGS: Lungs: The visualized lung bases are within normal limits. Heart: The visualized portions of the heart and pericardium are unremarkable. Liver: The liver is within normal limits. Gallbladder and bile ducts: The gallbladder is unremarkable. Pancreas: The pancreas is within normal limits. Spleen: The spleen is within normal limits. There is a large splenule. Adrenal glands: The adrenal glands are unremarkable. Kidneys and ureters: The kidneys are within normal limits. Stomach and bowel: The patient is status post resection at the level of the sigmoid colon. The anastomosis is intact. Appendix: The patient is status post appendectomy. Intraperitoneal space: Unremarkable. No free air. No significant fluid collection. Vasculature: There are arteriosclerotic changes of the aorta. There are multiple phleboliths within the pelvis. Lymph nodes: No enlarged lymph nodes. Urinary bladder: The urinary bladder is unremarkable. Reproductive: The uterus and ovaries appeared unchanged when compared to earlier studies. Bones/joints: There are slight degenerative changes of the thoracic and lumbar spines. Soft tissues: Unremarkable. IMPRESSION: Status post sigmoid colon resection. The anastomosis is intact. There is no evidence of diverticulitis. Dictated and Authenticated by: Shin Lopez MD. Ordering:ELSY Brower MD
== END 2020-10-30 17:39 | disposition home or self-care (01) ==
PROVIDERS: Emergency Provider Emergency Medicine; PCP Nurse Practitioner
DX: R10.32 Left lower quadrant pain (principal)
CPT/HCPCS: 80053; 83690; 99285; 74177; 81003; 85025; 85610; 85730; 99283; J3490

== ENCOUNTER → 2022-01-27 01:57 | Outpatient (CLI) | payer BC, SELFPAY ==
--- NOTE | 2022-01-27 15:15 | DI.MAMMO_ITS ---
Exam(s) MAMMO SCREENING EXAM: MAMMO SCREENING CLINICAL HISTORY: SCREENING, Z12.39 TECHNIQUE: Mammograms were interpreted according to the usual protocol including computer analysis w [employer] CAD system, tomosynthesis and C-view imaging. COMPARISON: 2020 FINDINGS: The breasts are composed of scattered fibroglandular densities, Breast Density category B. No suspicious masses or suspicious microcalcifications are seen. No skin thickening or abnormal axillary lymph nodes are seen. There has been no significant change from prior exams. IMPRESSION: BI-RADS Category 1, Negative mammogram Yearly screening mammography is recommended. Breast Density - Category B, scattered fibroglandular densities. A negative radiographic report should not delay biopsy if a dominant or clinically suspicious mass is present. Up to ten percent of cancers are not identified on mammography. A negative report may reinforce clinical impression. Adenosis and dense breasts may obscure an underlying neoplasm. False positive reports average 6 to 10%. Patient will receive a letter notifying them of these results.
== END ==
PROVIDERS: PCP Nurse Practitioner; Visit Provider Nurse Practitioner Family
DX: Z12.31 Encounter for screening mammogram for malignant neoplasm of breast (principal)
CPT/HCPCS: 77063; 77067

== ENCOUNTER 2022-09-20 23:52 | Outpatient (REF) | payer BC, SELFPAY | END 2022-09-20 23:53 | disposition home or self-care (01) | LOC: LBN 23:52 | PROVIDERS: PCP Nurse Practitioner; Visit Provider Nurse Practitioner Family | DX: J02.9 Acute pharyngitis, unspecified (principal) | CPT/HCPCS: 87081 ==

== ENCOUNTER 2022-10-11 18:41 | Outpatient (REF) | payer BC, SELFPAY ==
[2022-10-11 19:01] LABS: Abs Immature Grans 0.01 10^3/uL (0.0-0.06); Absolute Basophil Count 0.04 10^3/uL (0.0-0.2); Absolute Eosinophil Count 0.19 10^3/uL (0.0-0.7); Absolute Neutrophil Count 2.58 10^3/uL (1.2-6.7); Basophils % 0.8; HCT 40.3 % (36.0-46.0); HGB 13.2 g/dL (11.2-15.7); Immature Grans % 0.2; Lymphocytes % 31.8; MCH 28.3 pg (27.0-33.0); MCHC 32.8 % (32.0-36.0); MCV 86 fL (80-95); MPV 10.1 fL (8.0-11.0); Monocytes % 8.5; Neutrophils % 54.7; Platelet Count 286 10^3/uL (130-400); RBC 4.67 10^6/uL (3.93-5.22); RDW 13.6 % (11.7-14.6); RDW-SD 42.4 fL; WBC 4.72 10^3/uL (4.4-10.8)
[2022-10-11 19:44] LABS: ALT 29 U/L (14-59); AST 22 U/L (15-37); Albumin 3.9 g/dL (3.4-5.0); Alkaline Phosphatase 126 U/L (46-116); Anion Gap 9.7 mmol/L (3-11); BUN 12 mg/dL (7-18); Bilirubin, Total 0.3 mg/dL (0.2-1.0); CO2 27.3 mmol/L (21.0-32.0); CREATININE 0.8 mg/dL (0.55-1.02); Calcium 9.1 mg/dL (8.5-10.1); Calculated LDL 234 mg/dL (<100); Chloride 101 mmol/L (98-107); Cholesterol 337 mg/dL (<200); Glucose 90 mg/dL (74-106); HDL Cholesterol 72 mg/dL (40-60); Potassium 4.6 mmol/L (3.5-5.1); Sodium 138 mmol/L (136-145); TSH (W/Ref FT4) 2.27 uIU/mL (0.36-3.74); Total Protein 7.3 g/dL (6.4-8.2); Triglyceride 157 mg/dL (<150)
[2022-10-11 19:46] LABS: Vitamin B12 > 2000 pg/mL (193-986)
[2022-10-11 20:19] LABS: Vitamin D 25 Total 38.5 ng/mL (30-100)
== END 2022-10-11 18:42 | disposition home or self-care (01) ==
LOC: NCHCN 18:41
PROVIDERS: PCP Nurse Practitioner; Visit Provider Nurse Practitioner Family
DX: F41.8 Other specified anxiety disorders (principal); F43.10 Post-traumatic stress disorder, unspecified; F13.20 Sedative, hypnotic or anxiolytic dependence, uncomplicated; E78.5 Hyperlipidemia, unspecified; R74.8 Abnormal levels of other serum enzymes
CPT/HCPCS: 80053; 80061; 82306; 82607; 84443; 85025

== ENCOUNTER 2023-01-31 22:50 | Emergency (ER) | payer BC, SELFPAY ==
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
[2023-01-31 22:50] VITALS: PULSE 70
[2023-01-31] MEDS: Rocuronium 50 MG/5 ML SYR 100 MG IVP (22:57)
[2023-01-31 23:10] LABS: Abs Immature Grans 0.03 10^3/uL (0.0-0.06); Absolute Basophil Count 0.06 10^3/uL (0.0-0.2); Absolute Eosinophil Count 0.47 10^3/uL (0.0-0.7); Absolute Lymphocyte Count 2.86 10^3/uL (1.2-3.4); Absolute Monocyte Count 0.44 10^3/uL (0.1-0.8); Absolute Neutrophil Count 3.73 10^3/uL (1.2-6.7); Basophils % 0.8; Eosinophils % 6.2; HCT 39.4 % (36.0-46.0); HGB 12.7 g/dL (11.2-15.7); Immature Grans % 0.4; Lymphocytes % 37.7; MCH 27.5 pg (27.0-33.0); MCHC 32.2 % (32.0-36.0); MCV 86 fL (80-95); MPV 9.9 fL (8.0-11.0); Monocytes % 5.8; Neutrophils % 49.1; Platelet Count 289 10^3/uL (130-400); RBC 4.61 10^6/uL (3.93-5.22); RDW 13.2 % (11.7-14.6); RDW-SD 40.6 fL; WBC 7.59 10^3/uL (4.4-10.8)
[2023-01-31 23:12] LABS: Lactate 3.4 mmol/L (0.6-1.4)
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
[2023-01-31 23:31] LABS: ALT 20 U/L (14-59); AST 24 U/L (15-37); Albumin 3.6 g/dL (3.4-5.0); Alkaline Phosphatase 180 U/L (46-116); Anion Gap 10.8 mmol/L (3-11); BUN 15 mg/dL (7-18); Bilirubin, Total 0.2 mg/dL (0.2-1.0); CO2 25.2 mmol/L (21.0-32.0); CREATININE 1.2 mg/dL (0.55-1.02); Calcium 8.7 mg/dL (8.5-10.1); Chloride 101 mmol/L (98-107); ETHANOL BLOOD < 3.0 mg/dL (<10); Estimated GFR 51.82 (mL/min/1.73m2); Glucose 190 mg/dL (74-106); Potassium 3.9 mmol/L (3.5-5.1); Sodium 137 mmol/L (136-145); Total Protein 6.6 g/dL (6.4-8.2); Troponin I < 50 ng/L (<or=60)
[2023-01-31 23:36] LABS: BE (Venous) -2 mmol/L (-2-3); HCO3 (Venous) 25 mmol/L (23-28); O2 Sat (Venous) 83 %; TCO2 (Venous) 24 mmol/L (24-29); pCO2 (Venous) 57 mmHg (41-51); pH (Venous) 7.26 (7.31-7.41); pO2 (Venous) 50 mmHg
[2023-01-31 23:37] VITALS: BP 196/139; PULSE 107; RESP 12
[2023-01-31 23:38] LABS: BE -5 mmol/L (-2-3); HCO3 22 mmol/L (22-26); pCO2 47 mmHg (35-45); pH 7.28 (7.35-7.45); pO2 114 mmHg (80-105); sO2 98 % (95-98); tCO2 21 mmol/L (23-27)
[2023-01-31 23:39] LABS: NT-proBNP 167 pg/mL (<300); TSH (W/Ref FT4) 7.83 uIU/mL (0.36-3.74)
[2023-01-31 23:40] VITALS: BP 192/136; PULSE 102; RESP 12
[2023-01-31 23:40] LABS: FIO2 60 %
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
[2023-01-31 23:51] LABS: PTT Activated 25.4 sec (21.5-31.9); Prothrombin Time 10.4 sec (9.3-11.0)
[2023-01-31 23:56] LABS: FREE T4 0.85 ng/dL (0.76-1.46)
[2023-01-31 23:57] LABS: Salicylate < 2.8 mg/dL (<2.8)
[2023-01-31 23:58] LABS: Acetaminophen 2 ug/mL (10-30)
[2023-02-01] VITALS (143 sets, daily range): BP systolic 110–206; BP diastolic 79–172; PULSE 67–113; RESP 11–33; O2SAT 87–98
[2023-02-01] MEDS: Normal Saline - Diluent 50 ML VIAL IJ (00:13)
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
[2023-02-01] MEDS: levETIRAcetam 2,000 MG in Normal Saline 100 ML 400 MG IVPB (00:49)
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
[2023-02-01] MEDS: SODIUM CHLORIDE 3% 500 ML 30 ML IV (01:07)
[2023-02-01 01:46] LABS: Bilirubin Negative (Negative); Blood Trace-intact (Negative); Clarity Clear (Clear); Glucose Negative (Negative); Ketones Negative (Negative); Leukocyte Esterase Negative (Negative); Nitrite Negative (Negative); Urobilinogen 0.2 mg/dL (Up to 0.2)
--- NOTE | 2023-02-01 01:50 | W.ED.GENAD ---
Discharge Plan Disposition Patient Disposition: Transfer-Acute Inpatient Care Specific Acute Inpt Facility: [facility] Discharge Details Chief Complaint: AMS/LOC Clinical Impression: Subarachnoid hemorrhage, Respiratory arrest, Obtundation Primary Care Provider: Chely Zhang ED Provider: Devon Mcknight Home Meds and New Rx's Prescriptions: No Action trazodone 50 mg tablet 50 mg PO DAILY atorvastatin [Lipitor] 20 mg Tablet 20 mg PO HS alprazolam 1 mg Tablet 1 mg PO HS Patient Comments: Reports taking this nightly as well as during the day if needed montelukast [Singulair] 10 mg Tablet 10 mg PO HS gabapentin 100 mg capsule 100 mg PO .QHS Patient Comments: TK 1 C PO Q NIGHT oxybutynin chloride 5 mg tablet 5 mg PO BID Patient Comments: TAKE 1 TABLET BY MOUTH DAILY. MAY INCREASE TO 3 TIMES DAILY Advair HFA 115-21 mcg/actuation HFA aerosol inhaler INHALATION BID Patient Comments: INHALE 2 PUFFS BY MOUTH TWICE DAILY albuterol sulfate 90 mcg/actuation Hfa Aerosol Inhaler 1 puff INHALATION Q6H PRN ibuprofen 600 mg tablet 600 mg PO Q6H PRN (Reason: pain) Qty: 60 6RF Rx Instructions: take with food. do not take on an empty stomach ondansetron 4 mg tablet,disintegrating 4 mg PO Q8H PRN (Reason: nausea and vomiting) Qty: 30 0RF Medical Decision Making 62-year-old female with a past medical history of diverticulitis, lap lorelei, and no other significant past medical history aside for anxiety and reactive airway disease presents today for evaluation of respiratory arrest. History is notably limited, per EMS the patient was at home when suddenly she went unresponsive and 911 was called. When EMS arrived blood pressure was in the 40s systolic, pulses were only palpable at carotids. Patient was bagged, started on a nor epi drip, and brought in for further management. Patient is not able to add anything to history. No other complaints or modifying factors at this time. Family is not currently here yet. Physical exam demonstrates minimal respirations, no palpable pulses for radial pulses or lower extremities. Femoral pulses barely palpable, carotid pulses minimally palpable. Blood pressure is in the 40s systolic and on recheck was down to the 30s. Bedside E-FAST was performed and shows no evidence of pericardial tamponade. Cardiac squeeze appears to be minimal. IVC is 1.5 cm. No free fluid in the abdomen. Differential includes shock secondary to overdose, massive stroke or hemorrhage, and less likely sepsis. GCS is 3. Patient will be intubated, central line will be placed, we will place an art line, will get a CT scan of the head neck chest abdomen pelvis to evaluate for dissection or bleed, will monitor closely and reassess. We will start the patient on an epi drip in the meantime to raise her blood pressure. 12:30am Central line, art line, and intubation performed without complication. Norepinephrine was maximized and no significant improvement in blood pressure was found, 30 epi drip was started and brought up the blood pressure notably to the 160s. We did decrease this and tried to titrate around the 130s. While at CAT scan I was called to evaluate the CT imaging which demonstrated notable subarachnoid hemorrhage. Significant bleed throughout. Upon completion of CT imaging patient was brought back, epinephrine and norepinephrine were stopped, with a goal to titrate systolic blood pressure around the 120s to 130s. Head of the bed was elevated at 30 degrees. 2 g of Keppra were administered IV as well. We did reach out to [facility] and [facility] did say they were at capacity. [facility] contacted us with neurosurgery Dr. Aden, and upon their review of the imaging they are concerned that this is a catastrophic bleed with low to 0 likelihood of survivability or significant return to neurologic status/baseline. I did review this with the family, discussed risks and benefits of treatment, CODE STATUS, and short and long-term options. At this time through shared decision-making process family would like to proceed with transfer to the [facility] for potential organ donation and treatment if indicated or available. In the meantime patient's blood pressure normalized on its own and is no longer needing any benefits. [facility] does recommend hypertonic saline, which we will give a 500 cc bolus of 3%. We will continue to monitor. 3 AM Patient's CO2 levels are decreasing, she is demonstrating some neurologic improvement, and her pupils are now reactive on the left, but fixed on the right. She does demonstrate evidence of some flexion of some of her muscles, but no purposeful movements whatsoever. We will continue to monitor closely. 3:18 AM Transfer group has arrived for transfer patient. Discussed all of this and plan with family. They continue to agree with current plan. I have extensively reviewed the treatment plan with the patient. I have addressed all patient concerns at this time. I have also discussed the plan with the admitting physician and they agree with the current assessment and plan and have agreed to assume responsibility for the patient. All parties demonstrate verbal understanding and agreement with our assessment and plan at this time. The documentation in this chart was dictated using [employer] dictation software. Please excuse any dictation errors. FINDINGS: Severe subarachnoid hemorrhage opacifying the majority of the subarachnoid spaces. There is an ovoid rounded hyperdense focus in the interpeduncular fossa at the expected location of the basilar tip measuring up to 2 cm with mass effect on the midbrain and bina There is intraventricular hemorrhage and mild hydrocephalus. No acute territorial infarction. The cerebellar tonsils are mildly low-lying The calvarium is intact. The paranasal sinuses and mastoid cavities are grossly clear IMPRESSION: Severe subarachnoid hemorrhage with suspected aneurysm at the expected location of the basilar tip intraventricular hemorrhage and mild hydrocephalus FINDINGS: Tubes, catheters and devices: Endotracheal tube tip is 2.4 cm above the francisco. VASCULATURE: Pulmonary arteries: Limited pulmonary arterial evaluation due to contrast phase emphasizing aortic enhancement. No gross pulmonary artery abnormalities are appreciated. Aorta: The thoracic aorta enhances appropriately without evidence of dissection or aneurysm. Mild aortic ectasia and calcific athero sclerosis. No mediastinal hematoma. The abdominal aorta demonstrates moderate calcific plaque without evidence of aneurysm, dissection, or stenosis. Mild plaque ulceration in the anterior mid abdominal segment. Celiac trunk and mesenteric arteries: Celiac artery demonstrates mild post ostial kinking/tortuosity without significant stenosis. Left hepatic artery and left gastric artery arise from a separate branch superior to the celiac artery, and common hepatic artery arises from a separate branch inferior to the celiac trunk. SMA and its major branch vessels are unremarkable. JESSICA is unremarkable. Renal arteries: No occlusion or significant stenosis. Right iliac arteries: Right common iliac artery demonstrates moderate calcific plaque without stenosis. Right external iliac artery is unremarkable. Right common femoral artery demonstrates mild calcific plaque without stenosis. Visualized right SFA and profunda are unremarkable. Left iliac arteries: Left common iliac artery demonstrates moderate calcific plaque without stenosis. Left external iliac artery is unremarkable. Left common femoral artery, visualized SFA, and visualized profunda are unremarkable. Thyroid: The visualized thyroid gland demonstrates no gross abnormality. CHEST: Lungs: Minor bronchial wall thickening bilaterally suggesting mild changes of bronchial edema versus bronchitis. Peripheral bronchial occlusions in the right lung base could be due to mucous plugging/secretions or aspirated content. Interlobular septal thickening in the pulmonary apices and to a lesser degree the lung bases, with minor juxtapleural interstitial prominence bilaterally, suspect changes of interstitial pulmonary edema. Airspace disease in the right lower lobe with consolidative elements and moderate volume loss, pneumonia versus atelectasis, consider aspiration pneumonia. No pulmonary mass lesions are identified. Pleural spaces: No pleural effusion. No pneumothorax. Heart: Heart size normal. No coronary artery calcification. No pericardial effusion. Mediastinal space: The esophagus is largely contracted but demonstrates no gross abnormality. ABDOMEN AND PELVIS: Liver: Question mild generalized fatty infiltration of the liver. Normal contour. No mass lesions. No intrahepatic biliary ductal dilatation. Gallbladder and bile ducts: Normal. No calcified stones. No ductal dilation. Pancreas: Normal. No inflammatory changes or ductal dilation. Spleen: Normal. No splenomegaly. Adrenal glands: Normal. No adrenal mass. Kidneys and ureters: Mild bilateral caliectasis without significant pelviectasis or ureterectasis, probably secondary to urinary bladder distension. No urolithiasis or perinephric stranding. Stomach and bowel: The stomach is moderately distended with gas and fluid content. There is mild small bowel wall thickening in the left mid abdominal region and minor wall thickening in the colon which could indicate mild changes of enterocolitis or possibly changes of shock bowel from hypotension. No evidence of obstruction or perforation. Appendix: The appendix is not identified. No secondary signs of appendicitis. Intraperitoneal space: No free fluid or air. Urinary bladder: Severe urinary bladder distension measuring 13.2 x 10.0 by 11.0 cm, estimated volume 750 mL. Reproductive: Unremarkable as visualized. Lymph nodes: No supraclavicular or axillary adenopathy. No mediastinal or hilar adenopathy. No intra-abdominal/intrapelvic adenopathy. Bones/joints: No acute osseous abnormalities. Soft tissues: There is moderate muscular swelling with muscular under enhancement involving the visualized proximal most vastus intermedius, deep portion of vastus lateralis, and a portion of the distal iliacus musculature in the anterior upper right thigh, with additional swelling extending around the right common femoral artery. Correlate clinically for any recent procedures, possibly iatrogenic swelling without discrete hematoma within the scan range. Recommend clinical evaluation of the thigh to exclude evidence of hematoma distal to this, consider CT imaging of the right thigh as clinically indicated. IMPRESSION: 1. No acute vascular abnormalities are identified. 2. There is mild bowel wall thickening in the left mid abdominal small bowel and in the colon which could represent mild changes of enterocolitis or mild changes of shock bowel. No evidence of obstruction, perforation, or necrosis. 3. Airspace disease in the right lower lobe with associated peripheral bronchial occlusion and bronchial wall thickening. This could represent pneumonia with bronchitis and occlusive mucous plugging. Consider the possibility of aspiration and aspiration pneumonia. 4. Suspect a component of interstitial pulmonary edema. 5. Question mild fatty infiltration of the liver. 6. Severe urinary bladder distension with estimated volume 750 mL. Mild bilateral renal caliectasis is felt to be related to bladder distension, with no obstructive lesions identified. 7. There is moderate muscular swelling in several muscles in the anterior upper thigh with mild stranding extending around the right common femoral artery. This may represent a site of recent vascular access with iatrogenic muscular edema. No discrete hematoma is identified. Consider imaging of the right thigh if there is concern for hematoma in the thigh inferior to the scan range. 8. These findings initiated a critical results reporting process. An addendum will be issued at the time of clinician notification. Thank you for allowing us to participate in the care of your patient. Dictated and Authenticated by: Tito Childers MD 02/01/2023 12:47 AM Eastern Time ([place] & [place]) HPI General Date/Time Provider Initiated Documentation: 01/31/23 23:20. HPI Narrative: 62-year-old female with a past medical history of diverticulitis, lap lorelei, and no other significant past medical history aside for anxiety and reactive airway disease presents today for evaluation of respiratory arrest. History is notably limited, per EMS the patient was at home when suddenly she went unresponsive and 911 was called. When EMS arrived blood pressure was in the 40s systolic, pulses were only palpable at carotids. Patient was bagged, started on a nor epi drip, and brought in for further management. Patient is not able to add anything to history. No other complaints or modifying factors at this time. Family is not currently here yet. Related Data Home Medications Medication Instructions Recorded Confirmed alprazolam 1 mg tablet 1 mg PO HS anxiety 05/23/18 06/16/20 atorvastatin 20 mg tablet (Lipitor) 20 mg PO HS 12/12/18 01/05/21 montelukast 10 mg tablet 10 mg PO HS asthma 05/23/18 06/16/20 (Singulair) albuterol sulfate 90 mcg/actuation 1 puff inhalation Q6H PRN 12/20/18 06/16/20 aerosol inhaler ibuprofen 600 mg tablet 600 mg PO Q6H PRN pain #60 tabs 03/01/19 06/16/20 trazodone 50 mg tablet 50 mg PO DAILY 04/15/19 06/16/20 fluticasone propionate 115 inhalation BID 06/16/20 mcg-salmeterol 21 mcg/actuation HFA inhaler (Advair HFA) gabapentin 100 mg capsule 100 mg PO .QHS 06/16/20 06/16/20 oxybutynin chloride 5 mg tablet 5 mg PO BID 06/16/20 06/16/20 ondansetron 4 mg disintegrating 4 mg PO Q8H PRN nausea and 10/30/20 tablet vomiting #30 tabs Previous Rx's Medication Instructions Recorded ibuprofen 600 mg tablet 600 mg PO Q6H PRN pain #60 tabs 03/01/19 ondansetron 4 mg disintegrating 4 mg PO Q8H PRN nausea and 10/30/20 tablet vomiting #30 tabs Allergies Allergy/AdvReac Type Severity Reaction Status Date / Time cat dander Allergy Intermediate Wheezing Verified 06/16/20 14:29 ciprofloxacin [From Cipro] Allergy Intermediate knee Verified 06/16/20 14:29 swelling clindamycin Allergy Unknown knee Verified 06/16/20 14:29 swelling enviromental allergies Allergy wheezing, Uncoded 06/16/20 14:29 stuffiness General Stated Complaint: AMS/LOC TRISH: 2 Review of Systems All systems reviewed & are unremarkable except as noted in HPI and below PFSH All Active Problems (Updated 02/01/23 @ 03:21 by Devon Mcknight DO) Abdominal pain (Acute) Subarachnoid hemorrhage (Acute) Respiratory arrest (Acute) Obtundation (Acute) S/P laparoscopic colectomy (Acute) Dr Carissa Kohli, [facility] Colovesical fistula (Acute) Diverticulitis large intestine (Acute) Medical History Anxiety Asthma Fibromyalgia History of Lyme disease Chronic lyme disease per patient History of pilonidal cyst Hypercholesteremia Surgical History H/O hysterectomy for benign disease History of appendectomy History of section History of ovarian cystectomy prior to hysterectomy per patient History of tonsillectomy Family History Other Cancer Social History Smoking/Tobacco Use Status: Former Tobacco Use Smoking risk assessment performed?: Yes Alcohol Intake: never Drug use: Never Substance use type: does not use Current gender identity: female Do you feel safe in your relationship?: Yes Exam Narrative Exam Narrative: 1.Const: Well-nourished, Well-developed, appearing stated age 2.Eyes: Pupils are both notably dilated, fixed, nonreactive. 3.ENT: Atraumatic external nose and ears. Moist MM. Neck: Symmetric, trachea midline, No thyromegaly. 4.CVS: +S1/S2, No murmurs or gallops. Peripheral pulses are not palpable for radial or the lower extremities. Femoral pulses hardly palpable. Carotid pulses are faintly palpable. 5.RESP: Diminished respiratory effort. Shallow breaths. 6.GI: Soft, Nontender/Nondistended, No hepatosplenomegaly. No guarding or rebound. 7.MSK: Normocephalic/Atraumatic, Extremities w/o deformity or ttp No cyanosis or clubbing, no movement of any extremities. No signs of jamar trauma 8.Skin: Warm, Dry. No rashes or lesions. 9.Neuro: GCS of 3 Course Vital Signs Vital signs: Vital Signs Pulse 70 01/31/23 22:50 Pulse 70 01/31/23 22:50 Respiratory Rate 15 02/01/23 00:28 Blood Pressure Position Supine 01/31/23 22:50 Pulse Oximetry 98 02/01/23 00:28 Respiratory End-tidal CO2 28 02/01/23 00:28 Oxygen Delivery Method Ambu-Bag 01/31/23 22:50 Fraction of Inspired Oxygen (FIO2) 40 02/01/23 00:28 Lab/Test Results Lab/Test Results: Laboratory Tests Range/Units 01/31/23 01/31/23 01/31/23 23:00 23:00 23:00 WBC (4.4-10.8) 10^3/uL RBC (3.93-5.22) 10^6/uL Hgb (11.2-15.7) g/dL Hct (36.0-46.0) % MCV (80-95) fL MCH (27.0-33.0) pg MCHC (32.0-36.0) % RDW (11.7-14.6) % Plt Count (130-400) 10^3/uL MPV (8.0-11.0) fL Immature Gran % Neutrophils % Lymphocytes % Monocytes % Eosinophils % Basophils % Nucleated RBC % (0.0-0.3) % Absolute Neutrophils (1.2-6.7) 10^3/uL Absolute Lymphocytes (1.2-3.4) 10^3/uL Absolute Monocytes (0.1-0.8) 10^3/uL Absolute Eosinophils (0.0-0.7) 10^3/uL Absolute Basophils (0.0-0.2) 10^3/uL PT (9.3-11.0) sec INR (0.9-1.1) APTT (21.5-31.9) sec ABG Sample Site ABG pH (7.35-7.45) ABG pCO2 (35-45) mmHg ABG pO2 (80-105) mmHg ABG HCO3 (22-26) mmol/L ABG Total CO2 (23-27) mmol/L ABG O2 Saturation (95-98) % ABG Base Excess (-2-3) mmol/L VBG pH (7.31-7.41) VBG pCO2 (41-51) mmHg VBG pO2 mmHg VBG HCO3 (23-28) mmol/L VBG Total CO2 (24-29) mmol/L VBG O2 Saturation % VBG Base Excess (-2-3) mmol/L VBG Lactate (0.6-1.4) mmol/L FiO2 % Sodium (136-145) mmol/L 137 Potassium (3.5-5.1) mmol/L 3.9 Chloride (98-107) mmol/L 101 Carbon Dioxide (21.0-32.0) mmol/L 25.2 Anion Gap (3-11) mmol/L 10.8 BUN (7-18) mg/dL 15 Creatinine (0.55-1.02) mg/dL 1.2 H Est GFR (CKD-EPI 2020) (mL/min/1.73m2) 51.82 Glucose (74-106) mg/dL 190 H Calcium (8.5-10.1) mg/dL 8.7 Total Bilirubin (0.2-1.0) mg/dL 0.2 AST (15-37) U/L 24 ALT (14-59) U/L 20 Alkaline Phosphatase (46-116) U/L 180 H Troponin I (<or=60) ng/L < 50 NT-Pro-B Natriuret Pep (<300) pg/mL 167 Total Protein (6.4-8.2) g/dL 6.6 Albumin (3.4-5.0) g/dL 3.6 TSH (0.36-3.74) uIU/mL 7.83 H Free T4 (0.76-1.46) ng/dL 0.85 Salicylates (<2.8) mg/dL < 2.8 Acetaminophen (10-30) ug/mL 2 Ethyl Alcohol (<10) mg/dL < 3.0 Range/Units 01/31/23 01/31/23 01/31/23 23:00 23:00 23:30 WBC (4.4-10.8) 10^3/uL 7.59 RBC (3.93-5.22) 10^6/uL 4.61 Hgb (11.2-15.7) g/dL 12.7 Hct (36.0-46.0) % 39.4 MCV (80-95) fL 86 MCH (27.0-33.0) pg 27.5 MCHC (32.0-36.0) % 32.2 RDW (11.7-14.6) % 13.2 Plt Count (130-400) 10^3/uL 289 MPV (8.0-11.0) fL 9.9 Immature Gran % 0.4 Neutrophils % 49.1 Lymphocytes % 37.7 Monocytes % 5.8 Eosinophils % 6.2 Basophils % 0.8 Nucleated RBC % (0.0-0.3) % 0.0 Absolute Neutrophils (1.2-6.7) 10^3/uL 3.73 Absolute Lymphocytes (1.2-3.4) 10^3/uL 2.86 Absolute Monocytes (0.1-0.8) 10^3/uL 0.44 Absolute Eosinophils (0.0-0.7) 10^3/uL 0.47 Absolute Basophils (0.0-0.2) 10^3/uL 0.06 PT (9.3-11.0) sec 10.4 INR (0.9-1.1) 1.0 APTT (21.5-31.9) sec 25.4 ABG Sample Site ABG pH (7.35-7.45) ABG pCO2 (35-45) mmHg ABG pO2 (80-105) mmHg ABG HCO3 (22-26) mmol/L ABG Total CO2 (23-27) mmol/L ABG O2 Saturation (95-98) % ABG Base Excess (-2-3) mmol/L VBG pH (7.31-7.41) VBG pCO2 (41-51) mmHg VBG pO2 mmHg VBG HCO3 (23-28) mmol/L VBG Total CO2 (24-29) mmol/L VBG O2 Saturation % VBG Base Excess (-2-3) mmol/L VBG Lactate (0.6-1.4) mmol/L 3.4 H* FiO2 % Sodium (136-145) mmol/L Potassium (3.5-5.1) mmol/L Chloride (98-107) mmol/L Carbon Dioxide (21.0-32.0) mmol/L Anion Gap (3-11) mmol/L BUN (7-18) mg/dL Creatinine (0.55-1.02) mg/dL Est GFR (CKD-EPI 2020) (mL/min/1.73m2) Glucose (74-106) mg/dL Calcium (8.5-10.1) mg/dL Total Bilirubin (0.2-1.0) mg/dL AST (15-37) U/L ALT (14-59) U/L Alkaline Phosphatase (46-116) U/L Troponin I (<or=60) ng/L NT-Pro-B Natriuret Pep (<300) pg/mL Total Protein (6.4-8.2) g/dL Albumin (3.4-5.0) g/dL TSH (0.36-3.74) uIU/mL Free T4 (0.76-1.46) ng/dL Salicylates (<2.8) mg/dL Acetaminophen (10-30) ug/mL Ethyl Alcohol (<10) mg/dL Range/Units 01/31/23 01/31/23 23:30 23:35 WBC (4.4-10.8) 10^3/uL RBC (3.93-5.22) 10^6/uL Hgb (11.2-15.7) g/dL Hct (36.0-46.0) % MCV (80-95) fL MCH (27.0-33.0) pg MCHC (32.0-36.0) % RDW (11.7-14.6) % Plt Count (130-400) 10^3/uL MPV (8.0-11.0) fL Immature Gran % Neutrophils % Lymphocytes % Monocytes % Eosinophils % Basophils % Nucleated RBC % (0.0-0.3) % Absolute Neutrophils (1.2-6.7) 10^3/uL Absolute Lymphocytes (1.2-3.4) 10^3/uL Absolute Monocytes (0.1-0.8) 10^3/uL Absolute Eosinophils (0.0-0.7) 10^3/uL Absolute Basophils (0.0-0.2) 10^3/uL PT (9.3-11.0) sec INR (0.9-1.1) APTT (21.5-31.9) sec ABG Sample Site Unknown ABG pH (7.35-7.45) 7.28 L ABG pCO2 (35-45) mmHg 47 H ABG pO2 (80-105) mmHg 114 H ABG HCO3 (22-26) mmol/L 22 ABG Total CO2 (23-27) mmol/L 21 L ABG O2 Saturation (95-98) % 98 ABG Base Excess (-2-3) mmol/L -5 L VBG pH (7.31-7.41) 7.26 L VBG pCO2 (41-51) mmHg 57 H VBG pO2 mmHg 50 VBG HCO3 (23-28) mmol/L 25 VBG Total CO2 (24-29) mmol/L 24 VBG O2 Saturation % 83 VBG Base Excess (-2-3) mmol/L -2 VBG Lactate (0.6-1.4) mmol/L FiO2 % 60 Sodium (136-145) mmol/L Potassium (3.5-5.1) mmol/L Chloride (98-107) mmol/L Carbon Dioxide (21.0-32.0) mmol/L Anion Gap (3-11) mmol/L BUN (7-18) mg/dL Creatinine (0.55-1.02) mg/dL Est GFR (CKD-EPI 2020) (mL/min/1.73m2) Glucose (74-106) mg/dL Calcium (8.5-10.1) mg/dL Total Bilirubin (0.2-1.0) mg/dL AST (15-37) U/L ALT (14-59) U/L Alkaline Phosphatase (46-116) U/L Troponin I (<or=60) ng/L NT-Pro-B Natriuret Pep (<300) pg/mL Total Protein (6.4-8.2) g/dL Albumin (3.4-5.0) g/dL TSH (0.36-3.74) uIU/mL Free T4 (0.76-1.46) ng/dL Salicylates (<2.8) mg/dL Acetaminophen (10-30) ug/mL Ethyl Alcohol (<10) mg/dL Procedures Arterial Line Time Out Performed: Yes Size (Gauge): 18 Technique Used: guide wire technique Post-Procedure: line sutured into place Patient Tolerated Procedure: well and no complications Complications: none Site: left Central Line Placement Right IJ: Time Out Performed: Yes Patient Placed on Monitor/Pulse Ox: Yes MD Prep: gown and gloves Central Line Prep: Chlorhexidine scrub Ultrasound Used for Placement: Yes Central Line Lumen Inserted: triple Post Procedure: good blood return, all ports aspirated, flushed, capped and sutured in place with 2-0 silk Post Procedure X-Ray: tip of catheter in good position Patient Tolerated Procedure: well and no complications Complications: none Intubation Time out performed: Yes sedative: none paralytic: Rocuronium Mg Given: 100 Laryngoscope: fiberoptic video scope ET Tube Size: 7.5 ET Tube Uncuffed: No Tube Secured Depth (cm): 22 Tube Secured Location: teeth Tube Placement Confirmation: visualized tube passing through cords, equal breath sounds bilaterally and no breath sounds over epigastrum Patient Tolerated Procedure: well and no complications Intubation Complications: none Critical Care Time Critical Care Time Critical Care Time: Yes Total Critical Care Time: 120 Attestation: Upon my evaluation, this patient had a high probability of imminent or life-threatening deterioration, which required my direct attention, intervention, and personal management. I have personally provided 120 minutes of critical care time exclusive of time spent on separately billable procedures. Time includes review of laboratory data, radiology results, discussion with consultants, and monitoring for potential decompensation. Interventions were performed as documented.
[2023-02-01] MEDS: fentaNYL 1,000 MCG in Normal Saline 80 ML 5 MCG IV ×2 (01:55→02:23)
[2023-02-01 01:57] LABS: *AMPHETAMINES SCREEN URINE Negative (Negative); *BARBITURATES SCREEN URINE Negative (Negative); *BENZODIAZEPINES SCREEN URINE Negative (Negative); Bacteria Rare HPF (Negative); C & S Indicated? No; Cannabinoids THC Negative (Negative); Cocaine Screen,Urine Negative (Negative); Crystals Negative HPF (Negative); Epithelial Cells Few HPF (Negative); METHADONE URINE SCREEN Negative (Negative); Mucus Negative (Negative); OPIATES URINE SCREEN Negative (Negative); RBC 0-2 HPF (0-2); WBC 0-2 HPF (0-5)
[2023-02-01 01:58] LABS: Tricyclic Antidepressants Negative (Negative)
[2023-02-01] MEDS: PROPOFOL 500 MG/50 ML BTL 11.25 MG IV (02:49)
[2023-02-01 03:22] LABS: BE -7 mmol/L (-2-3); FIO2 40 %; HCO3 19 mmol/L (22-26); Site Arterial Line; pCO2 37 mmHg (35-45); pH 7.33 (7.35-7.45); pO2 59 mmHg (80-105); sO2 89 % (95-98); tCO2 17 mmol/L (23-27)
== END 2023-02-01 03:35 | disposition short-term general hospital (02) ==
PROVIDERS: Emergency Provider Student in an Organized Health Care Education/Training Program; PCP Nurse Practitioner
DX: I60.9 Nontraumatic subarachnoid hemorrhage, unspecified (principal); R09.2 Respiratory arrest; R40.1 Stupor
CPT/HCPCS: 31500; 71275; 76604; 76705; 76857; 80053; 80307; 82805; 96365; 96367; 99285; 36600; 70450; 71045; 74174; 80320; 80329; 81003; 81015; 83605; 83880; 84439; 84443; 84484; 85025; 85610; 85730; 99284; J1953; J3010